=== PATIENT | female | born 1945 | race Caucasian/White ===

== ENCOUNTER 2024-06-14 09:55 | Outpatient (AMB) | payer BC, SELFPAY ==
--- NOTE | 2024-06-14 10:34 | A.SPINEOV_ITS ---
Intake Visit Reasons: LBP Intake Note: Ms. Alfonso is here today c/o low back pain/pressure when standing and walking. Business Planning Director Required: No Assessment & Plan Assessment & Plan (1) Lumbar stenosis with neurogenic claudication: Code(s): M48.062 - Spinal stenosis, lumbar region with neurogenic claudication Category: Medical Plan Dear colleague, On 12/15/2023 the pleasure of seeing your patient Sagrario Alfonso. She self- referred with a chief complaint of low back pain radiating down both legs with w alking and standing. The symptoms are going on for 16 years and have progress. She underwent 2 surgeries the 1st 1 was to implant interspinous spacers which were coronary removed and a 2nd surgery was a decompression. Both surgery have not improved her symptoms. She comes in for another opinion. She has the classic symptoms of neurogenic claudication. On exam, she walks with a flexed position. Otherwise there are no neurological deficits. We reviewed imaging in detail. An MRI of the lumbar spine shows severe lumbar degenerative disc disease L3-4 and L4-5 and L5-S1 with status post laminectomy at L3-4 and L4-5. An L4-5 spondylolisthesis but also a lumbar degenerative scoliosis causing severe foraminal narrowing and central spinal stenosis. Unfortunately, a CT scan shows that the patient is suffering from osteoporosis. I explained to her that the symptoms are explained by the abnormalities on the MRI and CT scan but due to the poor bone quality I will not be able to help her surgically. She needs a correction of the L3-4 and L4-5 disc spaces to indirectly decompress her nerve structures. This fusion type surgery would feel due to the poor bone quality. She understood my explanation. I will refer to pain management to see if she is a candidate for a spinal cord stimulator. I spent 45 minutes in his consult to review imaging, exam and discuss plan of care. Thank you for allowing me take care of your patient. Mukund Buchanan MD, PhD Spine Fellowship Trained Neurosurgeon Director, [facility] Orders: Referrals Pain Management Referral M48.062 - Spinal stenosis, lumbar region with neurogenic claudication Coding Level of Care Code New Pt Level 4 (63675) Diagnoses Lumbar stenosis with neurogenic claudication M48.062
== END 2024-06-14 11:12 | disposition home or self-care (01) ==
PROVIDERS: PCP Nurse Practitioner Primary Care; Visit Provider Neurological Surgery
DX: M48.062 Spinal stenosis, lumbar region with neurogenic claudication (principal)
CPT/HCPCS: 99204

== ENCOUNTER → 2024-06-14 09:55 | Outpatient (BNVA) | payer BC, MEDICARE, SELFPAY | PROVIDERS: Visit Provider Neurological Surgery ==

== ENCOUNTER 2024-06-26 14:40 | Outpatient (REF) | payer MEDICARE, SELFPAY ==
--- NOTE | ~2024-06-26 | XR_ITS ---
EXAMINATION: XR HIP, LEFT CLINICAL INFORMATION: Unilateral primary osteoarthritis left hip. COMPARISON: None available. TECHNIQUE: 2 views of the left hip. FINDINGS: Diffuse demineralization. Degenerative changes in the imaged lower spine and left sacroiliac joint. Moderate degenerative changes in the left hip with joint space and hypertrophic change. Extensive vascular calcifications. Extensive sclerosis and degenerative change on very limited imaging of the pubic symphysis. XR/XR hip LT min 2V IMPRESSION: 1. Moderate degenerative changes in the left hip. 2. Extensive sclerosis and degenerative change on very limited imaging of the pubic symphysis. 3. CT scan or MRI could be considered for further evaluation if there is clinical concern for fracture or other underlying pathology.
== END 2024-06-26 14:41 | disposition home or self-care (01) ==
LOC: HO.XRAY 14:40
PROVIDERS: PCP Nurse Practitioner Primary Care; Visit Provider Anesthesiology
DX: M16.12 Unilateral primary osteoarthritis, left hip (principal)
CPT/HCPCS: 73502

== ENCOUNTER 2024-06-26 14:40 | Outpatient (AMB) | payer BC, SELFPAY ==
--- NOTE | 2024-06-26 14:45 | MHC.OFFVIS ---
Vital Signs 06/26/24 14:48 Height 5 ft 1.5 in Weight 190 lb 4 oz BMI 35.4 BP 149/79 H Blood Pressure Location Lt brachial Position Sitting Pulse 83 Pulse Source Pulse Oximeter Pulse Oximetry (%) 94 Oxygen Delivery Method Room Air Intake Visit Reasons: Spinal stenosis - referral from [facility] Intake Note: Sagrario is a 78 year old female who presents to the office today for spinal stenosis referred by Dr. Buchanan. Allergies No Known Allergies Allergy (Verified 06/26/24 14:51) HPI Comments Details: Vaishali is very pleasant 78 years old female who presents in this office with complains on unstable gait, inability to walk for long period of time, tiredness with walking in the lower extremities need to lean forward and sit down after the short periods of walking as well as pain in the projection of the left groin and pain in anterior thighs. The symptoms of neurogenic claudication related to patient's spinal stenosis and history of spine surgery. She was seen by Dr. Buchanan and in his no Dr. Buchanan stated that her condition in her back otherwise would require additional surgery on additional spinal levels however the patient has advanced severe osteoporosis and therefore he will not be able to offer surgery to this patient. He recommended patient physical therapy, he recommended her to go to pain management. She reports that she can not sleep normally, she can not do activities of daily living, she can take care of herself, but she can not function normally. 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 She needs walker for ambulation. Movements aggravate her pain. Heat and cold applications make her pain slightly better. In terms of tissue damage he reports her pain is pulsing, throbbing, pounding, tugging, pulling, wrenching, tingling, stinging, dull, hurting, heavy, tiring, exhausting, spreading, radiating, piercing. She had multiple sessions of physical therapy, massage therapy, herbal and homeopathic treatment. She had an MRI of the lumbar spine recently which was evaluated by Dr. Buchanan and described in his note. She has advanced spinal canal stenosis in the lumbar spine. She never had any injections. Her past medical history significant for arthritis dizziness and fainting, her past surgical history significant for surgery on the lumbar spine in 2007 twice and 2010 total knee replacement. She used to smoke 1 pack per day of the cigarettes but currently she stopped. She drinks alcohol about 2 drinks a month. She drinks caffeinated beverages and she denies recreational drugs. Review of Systems Const Reports no additional complaints, Reports frequent falls and Reports weakness ENT Reports Normal hearing present Card Reports no additional complaints Resp Reports no additional complaints GI Reports no additional complaints Musc Reports as per HPI Neuro Reports Normal hearing present, Denies Abnormal speech present, Reports frequent falls, Denies Sensory deficit (Neuro) and Reports weakness Physical Exam Vital Signs: Last Vital Signs Pulse 83 06/26/24 14:48 BP 149/79 H 06/26/24 14:48 Pulse Ox 94 06/26/24 14:48 Oxygen Delivery Method Room Air 06/26/24 14:48 BMI result Body Mass Index 35.4 Const General: no acute distress Orientation/consciousness: patient oriented x3 Limitations: physical limitations Eyes General: appearance normal, both eyes and all related structures Pupils: Equal, round and reactive pupils present EOM: EOMs intact bilaterally Neck Neck: Yes full ROM Chest Chest palpation & inspection: normal inspection of the chest Resp Effort & Inspection: normal respiratory effort, able to speak in complete sentences, normal respiratory pattern, no audible wheezes and no cough Cardio Jugular venous distension: no JVD GI Inspection: Yes normal to inspection Back/Spine/Pelvis Other: On physical exam there is very well-healed scar in the projection of the patient's lumbar spine in the most lower portion of the lumbar vertebra. The patient demonstrate wobbly gait, she demonstrates weakness in bilateral lower extremities, she is unable to walk longer than 10-15 yd without resting. She needs to flex forward when resting to alleviate her pain. She denies pelvic organ dysfunction. She admits Valsalva maneuver aggravates her pain. Neuro General: patient oriented x3 and gait normal Cranial nerves: Yes CN's II-XII intact bilaterally, Yes Equal, round and reactive pupils present, Yes Normal hearing present and Yes Ability to bilaterally elevate shoulders present Speech: No Abnormal speech present Gait exam (Neuro): Normal gait present Motor exam (neuro): 5/5 motor strength present throughout Sensory Exam: No Sensory deficit (Neuro) Extrem General: No pedal edema Psych Speech and movement: Normal speech and movement present Affect: normal affect Attitude: cooperative Thought process: Normal thought process present Thought content: Normal thought content present Insight: Good insight present (Psych) Judgement: Good judgement present (Psych) Assessment & Plan Assessment & Plan (1) Osteoarthritis of left hip: Code(s): M16.12 - Unilateral primary osteoarthritis, left hip Category: Medical Plan I will send this patient for x-ray of the left hip to evaluate 1 yet another pain generators which is left hip osteoarthritis. We discussed possibility of treatment of this patient's pain with neuromodulation. I will send this patient for evaluation with [facility] psychology. After that we will schedule her for a trial of [employer] spinal cord stimulator. I am planning to switch her to [employer] SCS if the results of the [employer] stimulation will not be appropriate or not satisfactory for the patient. I would like to try intrathecal drug delivery system pain pump for the patient if SCS results will be less than encouraging. Orders: Orders XR hip LT min 2V Today M16.12 - Unilateral primary osteoarthritis, left hip Patient Instructions: I here by testify that I spent 45 minutes in conversation with this patient as well as planning his care and organizing this note. Coding Level of Care Code New Pt Level 4 (70812) Diagnoses Osteoarthritis of left hip M16.12
[2024-06-26 14:48] VITALS: BP 149/79; PULSE 83; O2SAT 94; BMI 35.4
== END 2024-06-26 15:25 | disposition home or self-care (01) ==
PROVIDERS: PCP Nurse Practitioner Primary Care; Visit Provider Anesthesiology
DX: M16.12 Unilateral primary osteoarthritis, left hip (principal)
CPT/HCPCS: 99204

== ENCOUNTER 2024-07-31 09:39 | Outpatient (AMB) | payer BC, SELFPAY ==
[2024-07-31 09:45] VITALS: BP 141/89; PULSE 81; O2SAT 96
--- NOTE | 2024-07-31 09:45 | MHC.OFFVIS ---
Vital Signs 07/31/24 09:45 Height 5 ft 1 in BMI Reason not done Patient refused/unable BP 141/89 H Blood Pressure Location Lt brachial Position Sitting Pulse 81 Pulse Source Pulse Oximeter Pulse Oximetry (%) 96 Oxygen Delivery Method Room Air Comment Pt refused weight Intake Visit Reasons: X-Ray 1 Month F/U Allergies No Known Allergies Allergy (Verified 06/26/24 14:51) HPI Comments Details: Patient presents back to the office today, accompanied by her daughter, for follow-up lower back pain and review of recent x-ray. X-ray reviewed, results as per below. Pain today rated as a 6/10, constant worse with standing and walking. Finds relief with slight forward flexion At last visit was offered spinal cord stimulator trial, she has been waiting [employer] to contact her to schedule. Reports snoring and daytime fatigue, has been referred for sleep study in the past but never completed it. She had completed multiple sessions of physical therapy, massage therapy, NSAIDS, herbal and homeopathic treatment. Prior visit with Dr. Albrecht: Vaishali is very pleasant 78 years old female who presents in this office with complains on unstable gait, inability to walk for long period of time, tiredness with walking in the lower extremities need to lean forward and sit down after the short periods of walking as well as pain in the projection of the left groin and pain in anterior thighs. The symptoms of neurogenic claudication related to patient's spinal stenosis and history of spine surgery. She was seen by Dr. Buchanan and in his no Dr. Buchanan stated that her condition in her back otherwise would require additional surgery on additional spinal levels however the patient has advanced severe osteoporosis and therefore he will not be able to offer surgery to this patient. He recommended patient physical therapy, he recommended her to go to pain management. She reports that she can not sleep normally, she can not do activities of daily living, she can take care of herself, but she can not function normally. 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 She needs walker for ambulation. Movements aggravate her pain. Heat and cold applications make her pain slightly better. In terms of tissue damage he reports her pain is pulsing, throbbing, pounding, tugging, pulling, wrenching, tingling, stinging, dull, hurting, heavy, tiring, exhausting, spreading, radiating, piercing. She had multiple sessions of physical therapy, massage therapy, herbal and homeopathic treatment. She had an MRI of the lumbar spine recently which was evaluated by Dr. Buchanan and described in his note. She has advanced spinal canal stenosis in the lumbar spine. She never had any injections. Her past medical history significant for arthritis dizziness and fainting, her past surgical history significant for surgery on the lumbar spine in 2008 twice and 2011 total knee replacement. She used to smoke 1 pack per day of the cigarettes but currently she stopped. She drinks alcohol about 2 drinks a month. She drinks caffeinated beverages and she denies recreational drugs. Review of Systems Const All systems reviewed & are unremarkable except as noted in HPI and below Physical Exam Vital Signs: Last Vital Signs Pulse 81 07/31/24 09:45 BP 141/89 H 07/31/24 09:45 Pulse Ox 96 07/31/24 09:45 Oxygen Delivery Method Room Air 07/31/24 09:45 General: awake, alert, oriented. Answers questions appropriately. Fully engaged in examination. Skin: warm, dry, intact HEENT: Normocephalic. Hearing intact. Cardiac: External chest normal in appearance. Respiratory: No cough, audible wheezing or stridor. Abdomen: without gross distension. MS: No obvious swelling or deformities. Able to stand on bilateral tiptoes and bilateral heels.? Able to transition from sit to stand unassisted. Ambulates with bilaterally normal heel strike and toe off SLR negative bilaterally Tender to palpation midline lumbar vertebrae and lumbar paraspinal muscles Bilateral lower extremity strength 4/5 Nontender over bilateral PSIS Neurological: Oriented to person, place, time and situation. Thought process intact. Ambulates with the use of walking stick, bent at the waist in a slight forward flexion Psychiatric: Appropriate mood and affect. Good judgment and insight. Results Reviewed Results Reviewed: 06/26/24: left hip xray IMPRESSION: 1. Moderate degenerative changes in the left hip. 2. Extensive sclerosis and degenerative change on very limited imaging of the pubic symphysis. 3. CT scan or MRI could be considered for further evaluation if there is clinical concern for fracture or other underlying pathology. Assessment & Plan Assessment & Plan (1) Osteoarthritis of left hip: Code(s): M16.12 - Unilateral primary osteoarthritis, left hip Category: Medical (2) Lumbar stenosis with neurogenic claudication: Code(s): M48.062 - Spinal stenosis, lumbar region with neurogenic claudication Category: Medical (3) Post laminectomy syndrome: Code(s): M96.1 - Postlaminectomy syndrome, not elsewhere classified Category: Medical (4) CATHLEEN (obstructive sleep apnea): Code(s): G47.33 - Obstructive sleep apnea (adult) (pediatric) Category: Medical Plan Patient presented to the office today for follow-up low back pain Previous visit discussion for spinal cord stimulator was had, patient would like to proceed with this. She has exhausted conservative therapy including multiple sessions of physical therapy, massage therapy, NSAIDS, herbal and homeopathic treatment. Previously she was referred to [facility] for mental health evaluation which has requirement by insurance for implantable devices. She is to be call to schedule an appointment. [facility] pamphlet was provided and patient will reach out directly to them. Pamphlet for [employer] spinal cord stimulator was given to patient today. Discussed in length SCS trial and implant. Risks and benefits were reviewed, patient would like to proceed with SCS trial with [employer]. Referral has been placed to pulmonary for sleep study/CATHLEEN. All questions and concerns answered, patient agrees with the plan. Follow up after SCS trial, sooner if needed. Orders: Referrals Pulmonology Referral G47.33 - Obstructive sleep apnea (adult) (pediatric) Coding Level of Care Code Est Pt Level 3 (91877) Complex EM visit Add On G2211 Diagnoses Osteoarthritis of left hip M16.12 Lumbar stenosis with neurogenic claudication M48.062 Post laminectomy syndrome M96.1 CATHLEEN (obstructive sleep apnea) G47.33
== END 2024-07-31 10:20 | disposition home or self-care (01) ==
PROVIDERS: PCP Nurse Practitioner Primary Care; Visit Provider Registered Nurse Emergency
DX: M16.12 Unilateral primary osteoarthritis, left hip (principal); M48.062 Spinal stenosis, lumbar region with neurogenic claudication; M96.1 Postlaminectomy syndrome, not elsewhere classified; G47.33 Obstructive sleep apnea (adult) (pediatric)
CPT/HCPCS: 99213

== ENCOUNTER → 2024-07-31 09:39 | Outpatient (BNVA) | payer BC, SELFPAY | PROVIDERS: PCP Nurse Practitioner Primary Care; Visit Provider Registered Nurse Emergency ==

== ENCOUNTER 2024-09-17 10:35 | Outpatient (AMB) | payer BC, SELFPAY ==
[2024-09-17 10:39] VITALS: BP 128/77; PULSE 77; O2SAT 97
--- NOTE | 2024-09-17 10:39 | MHC.OFFVIS ---
Vital Signs 09/17/24 10:39 Height 5 ft 1 in BP 128/77 Blood Pressure Location Rt brachial Position Sitting Pulse 77 Pulse Source Doppler Pulse Oximetry (%) 97 Oxygen Delivery Method Room Air Intake Visit Reasons: sleep apnea Intake Note: *Patient refused weight Allergies No Known Allergies Allergy (Verified 09/17/24 10:43) HPI HPI sleep apnea: Details: 79-year-old lady, former approximately 30 pack-year smoker, quit at 46 years of age, now referred for evaluation of likely underlying obstructive sleep apnea. Per patient she sleeps approximately 7 hours and wakes up feeling not well rested. She does complain of daytime sleepiness and hypersomnolence. She is interested in further evaluation. Patient also complains of intermittent environmental allergies for which she occasionally uses Zyrtec. She does say that she intermittently gets sensation of chest less throat tightness with intermittent wheezing. She denies family history of lung disease, except COPD in her sister who was a smoker. [facility] Social History (Updated 09/17/24 @ 10:44 by Tanya Katz [facility]) Patient Tobacco Use Status: Former Tobacco user Years Smoked: quit 6 years ago. started at age 18, 1PPD Review of Systems Const Reports daytime sleepiness, Denies excessive sweating, Reports fatigue, Denies fever(s), Denies lethargy, Denies malaise, Denies night sweats, Reports snoring and Denies weight loss Eyes Denies blurry vision and Denies itchy eyes ENT Denies nasal congestion, Denies post nasal drip, Denies sinus pain, Denies sinus pressure and Denies other ( Thrush) Card Denies chest pain, Denies pedal edema, Denies dyspnea, Denies orthopnea and Denies paroxysmal nocturnal dyspnea Resp Denies cough, Denies hemoptysis, Denies excessive phlegm production, Denies dyspnea, Reports snoring and Denies wheezing GI Denies abdominal pain and Denies heartburn Musc Denies myalgias, Denies arthralgias and Denies joint swelling Skin/Breast Denies rash Neuro Denies memory loss and Denies seizure-like activity Psych Denies abnormal sleep pattern, Denies anxiety and Denies memory loss Endo Denies excessive sweating, Reports fatigue and Denies heat intolerance Virgil/Lymph Denies easy bruising Aller/Immun Denies itchy eyes, Denies seasonal rhinorrhea and Denies wheezing Physical Exam Vital Signs: Last Vital Signs Pulse 77 09/17/24 10:39 BP 128/77 09/17/24 10:39 Pulse Ox 97 09/17/24 10:39 Oxygen Delivery Method Room Air 09/17/24 10:39 Const General: no acute distress and alert Nutritional Appearance: obese Orientation/consciousness: Other orientation findings ( oriented) HEENT Head: Yes atraumatic Eyes General: appearance normal, both eyes and all related structures Sclerae: sclerae normal EOM: EOMs intact bilaterally Neck Neck: Yes supple Lymphatic: no lymphadenopathy noted Resp Effort & Inspection: normal respiratory effort and no use of accessory muscles Auscultation: clear to auscultation bilaterally Cardio Rate: regular rate Rhythm: regular rhythm Heart sounds: no gallops, no murmurs and no rubs Skin General skin exam: other ( warm) Extrem General: No clubbing, No cyanosis and No edema Assessment & Plan Assessment & Plan (1) CATHLEEN (obstructive sleep apnea): Code(s): G47.33 - Obstructive sleep apnea (adult) (pediatric) Category: Medical Plan: Unrestful sleep, daytime somnolence, snoring. [place] Sleepiness Scale score of 15. Will obtain home sleep study. (2) Wheezing: Code(s): R06.2 - Wheezing Category: Medical Plan: May have underlying allergic asthma and pulmonary emphysema. Patient wants to postpone pulmonary function tests until working up her sleep apnea. Orders: Orders RT home sleep study Today G47.33 - Obstructive sleep apnea (adult) (pediatric) Coding Level of Care Code New Pt Level 4 (40671) Diagnoses CATHLEEN (obstructive sleep apnea) G47.33 Wheezing R06.2
== END 2024-09-17 11:00 | disposition home or self-care (01) ==
PROVIDERS: PCP Nurse Practitioner Primary Care; Visit Provider Internal Medicine Pulmonary Disease
DX: G47.33 Obstructive sleep apnea (adult) (pediatric) (principal); R06.2 Wheezing
CPT/HCPCS: 99204

== ENCOUNTER → 2024-09-17 10:35 | Outpatient (BNVA) | payer BC, SELFPAY | PROVIDERS: PCP Nurse Practitioner Primary Care; Visit Provider Internal Medicine Pulmonary Disease ==

== ENCOUNTER 2024-09-26 11:53 | Outpatient (AMB) | payer BC, SELFPAY ==
--- NOTE | 2024-09-26 11:56 | A.OFFVIS_ITS ---
Vital Signs 09/26/24 12:06 Height 5 ft 1 in Weight 188 lb BMI 35.5 BP 150/90 H Blood Pressure Location Lt brachial Position Sitting Respiration 16 Pulse 83 Pulse Source Pulse Oximeter Pulse Oximetry (%) 97 Oxygen Delivery Method Room Air Intake Visit Reasons: discuss [place] Sci trial Intake Note: Patient comes in for discussion. Reports pain 05/06. Allergies No Known Allergies Allergy (Verified 09/26/24 12:00) HPI Comments Details: Sagrario is in my office today to discuss spinal cord stimulator [place] scientific trial. Risks and benefits explained to the patient. The complications of her particular case were carefully explained to the patient. She has significant scoliosis and she has history of postlaminectomy syndrome. All of this can create significant adhesions in her lumbar spine which would prevent me from placing spinal cord stimulator testing wires in proper position. However if the patient will receive good pain relief from [place] scientific testing device will be happy to implant permanent [place] scientific device for her. On the CT scan of her lumbar spine there is L4-5 and S1 endplate Modic type changes which however not very prominent on the MRI. I contemplated for awhile the intercept procedure for the patient however she denies pain increase with prolonged sitting. Reports pain with standing and walking getting more active is more prominent. She actually finds relief of the pain with forward flexion and this is another point against vertebra genic pain syndrome. She passed [employer] point psychological evaluation. I also explained to the patient today that trial of spinal cord stimulator home uld be considered not as the ultimate procedure but rather as a 1st step in her pain relief therapy. Possibility of treating her pain with chronic opioid therapy was carefully explained to the patient. Prior: Complains on unstable gait, inability to walk for long period of time, tiredness with walking in the lower extremities need to lean forward and sit down after the short periods of walking as well as pain in the projection of the left groin and pain in anterior thighs. The symptoms of neurogenic claudication related to patient's spinal stenosis and history of spine surgery. She was seen by Dr. Buchanan and in his no Dr. Buchanan stated that her condition in her back otherwise would require additional surgery on additional spinal levels however the patient has advanced severe osteoporosis and therefore he will not be able to offer surgery to this patient. He recommended patient physical therapy, he recommended her to go to pain management. She had multiple sessions of physical therapy, massage therapy, herbal and homeopathic treatment. She had an MRI of the lumbar spine recently which was evaluated by Dr. Buchanan and described in his note. She has advanced spinal canal stenosis in the lumbar spine. [facility] Social History (Updated 09/17/24 @ 10:44 by BENNY Mcarthur) Patient Tobacco Use Status: Former Tobacco user Years Smoked: quit 6 years ago. started at age 18, 1PPD Review of Systems Const All systems reviewed & are unremarkable except as noted in HPI and below Physical Exam Vital Signs: Last Vital Signs Pulse 83 09/26/24 12:06 Resp 16 09/26/24 12:06 BP 150/90 H 09/26/24 12:06 Pulse Ox 97 09/26/24 12:06 Oxygen Delivery Method Room Air 09/26/24 12:06 BMI result Body Mass Index 35.5 Const General: no acute distress Orientation/consciousness: patient oriented x3 Limitations: physical limitations Eyes General: appearance normal, both eyes and all related structures EOM: EOMs intact bilaterally Neck Neck: Yes full ROM Chest Chest palpation & inspection: normal inspection of the chest Resp Effort & Inspection: normal respiratory effort, able to speak in complete sentences, normal respiratory pattern, no audible wheezes and no cough Cardio Jugular venous distension: no JVD GI Inspection: Yes normal to inspection Back/Spine/Pelvis Other: On physical exam there is very well-healed scar in the projection of the patient's lumbar spine in the most lower portion of the lumbar vertebra. The patient demonstrate wobbly gait, she demonstrates weakness in bilateral lower extremities, she is unable to walk longer than 10-15 yd without resting. She needs to flex forward when resting to alleviate her pain. She denies pelvic organ dysfunction. She admits Valsalva maneuver aggravates her pain. Neuro General: patient oriented x3 and gait normal Extrem General: No pedal edema Psych Speech and movement: Normal speech and movement present Affect: normal affect Attitude: cooperative Thought process: Normal thought process present Thought content: Normal thought content present Insight: Good insight present (Psych) Judgement: Good judgement present (Psych) Assessment & Plan Assessment & Plan (1) Lumbar stenosis with neurogenic claudication: Code(s): M48.062 - Spinal stenosis, lumbar region with neurogenic claudication Category: Medical (2) Post laminectomy syndrome: Code(s): M96.1 - Postlaminectomy syndrome, not elsewhere classified Category: Medical (3) Chronic pain syndrome: Code(s): G89.4 - Chronic pain syndrome Category: Medical Plan We are waiting for pre authorization for a trial of [place] scientific spinal cord stimulator.. After that we will schedule her for a trial of [place] scientific spinal cord stimulator. I am planning to switch her to [facility] SCS if the results of the [place] scientific stimulation will not be appropriate or not satisfactory for the pat ient. I would like to try intrathecal drug delivery system pain pump for the patient if SCS results will be less than encouraging. She seemed to be very well adjusted and very well composed person and therefore in my opinion she could be a candidate for chronic opioid program as well. Patient Instructions: I here by testify that I spent 35 minutes in conversation with this patient as well as evaluating her prior records and diagnostic studies as well as planning her care and organizing this note. Coding Level of Care Code Est Pt Level 4 (70398) Diagnoses Lumbar stenosis with neurogenic claudication M48.062 Post laminectomy syndrome M96.1 Chronic pain syndrome G89.4
[2024-09-26 12:06] VITALS: BP 150/90; PULSE 83; RESP 16; O2SAT 97; BMI 35.5
== END 2024-09-26 12:19 | disposition home or self-care (01) ==
LOC: HO.PMC 11:54
PROVIDERS: PCP Nurse Practitioner Primary Care; Visit Provider Anesthesiology
DX: M48.062 Spinal stenosis, lumbar region with neurogenic claudication (principal); M96.1 Postlaminectomy syndrome, not elsewhere classified; G89.4 Chronic pain syndrome
CPT/HCPCS: 99214

== ENCOUNTER → 2024-09-26 11:53 | Outpatient (BNVA) | payer BC, SELFPAY | PROVIDERS: PCP Nurse Practitioner Primary Care; Visit Provider Anesthesiology ==

== ENCOUNTER → 2024-10-29 10:51 | Outpatient (REF) | payer MEDICARE, SELFPAY ==
--- OUTSIDE RECORDS SUMMARY | 2024-11-05 12:55 | XMS_ITS | Continuity of Care Document ---
Author Organization [facility] Address [address] [place], [place] Phone [phone] Social History Type Date Description Comments Sex Unknown Allergies and adverse reactions Active Allergies Criticality Reaction Severity Comments Date Shellfish-Derived Products Unable to assess criticality 03/08/2024 Dairy Unable to assess criticality 03/08/2024
== END ==
LOC: HO.SL 10:51
PROVIDERS: PCP Nurse Practitioner Primary Care; Visit Provider Internal Medicine Pulmonary Disease
DX: G47.33 Obstructive sleep apnea (adult) (pediatric) (principal)
CPT/HCPCS: 95806

== ENCOUNTER → 2024-10-29 11:08 | Outpatient (BNV) | payer MEDICARE, SELFPAY | PROVIDERS: PCP Nurse Practitioner Primary Care; Visit Provider Internal Medicine | DX: G47.33 Obstructive sleep apnea (adult) (pediatric) (principal) | CPT/HCPCS: 95806 ==

== ENCOUNTER 2024-11-01 09:57 | Day surgery (SDC) | payer MEDICARE, SELFPAY ==
[2024-10-30 14:11] VITALS: BMI 35.5
--- NOTE | 2024-10-31 10:52 | HO.ANESPROP2 ---
Documented by User: Pmea Liu NP 10/31/24 10:52 HPI - Anesthesia Eval Consult details Narrative: 79yo F for Spinal Cord Stimulation Trial [facility] Active Problems Active Problems: All Active Problems Chronic pain syndrome (Acute) Wheezing (Acute) CATHLEEN (obstructive sleep apnea) (Acute) Post laminectomy syndrome (Acute) Osteoarthritis of left hip (Acute) Lumbar stenosis with neurogenic claudication (Acute) Past Medical History Medical History Scoliosis Lumbar stenosis Osteoarthritis Post laminectomy syndrome Chronic pain syndrome Sleep apnea Surgical History Surgical History History of back surgery Social History Social History Patient Tobacco Use Status: Former Tobacco user Years Smoked: quit 6 years ago. started at age 18, 1PPD Second Hand Smoke Exposure: No Use of substances other than those prescribed or required for medical reasons: No Have you been hit, kicked, punched, or otherwise hurt by someone within the past year? If so, by whom?: No Are you DNR?: No Advance Directives: No Advance Directives Information Provided: Yes Advance Directives on File: No Recently lost weight without trying: No Eating poorly because of decreased appetite: No Nutrition Risks: No Nutritional Risk Patient : No : No Poor oral hygiene: No Meds Allergies Allergy/AdvReac Type Severity Reaction Status Date / Time No Known Allergies Allergy Verified 09/26/24 12:00 Home Medications ?Medication ?Instructions ?Recorded ?Confirmed ?Last Taken ?Type duloxetine 30 mg capsule,delayed 30 mg PO BID 06/26/24 Unknown History release mirabegron 25 mg tablet,extended 25 mg PO DAILY 06/26/24 Unknown History release 24 hr (Myrbetriq) Exam Height,Weight and Vital Signs: Height 5 ft 1 in Weight 85.275 kg Assessment and Plan Assessment Anesthesia Assessment: Chart Reviewed Documented by User: Mickie Thomas MD 11/01/24 10:55 PMFSH Past Medical History Medical History Scoliosis Lumbar stenosis Osteoarthritis Post laminectomy syndrome Chronic pain syndrome Sleep apnea Surgical History Surgical History History of back surgery History of Problems with Anesthesia: No Social History Social History Patient Tobacco Use Status: Former Tobacco user Years Smoked: quit 6 years ago. started at age 18, 1PPD Second Hand Smoke Exposure: No Use of substances other than those prescribed or required for medical reasons: No Have you been hit, kicked, punched, or otherwise hurt by someone within the past year? If so, by whom?: No Are you DNR?: No Advance Directives: No Advance Directives Information Provided: Yes Advance Directives on File: No Recently lost weight without trying: No Eating poorly because of decreased appetite: No Nutrition Risks: No Nutritional Risk Patient : No : No Poor oral hygiene: No Meds Allergies Allergy/AdvReac Type Severity Reaction Status Date / Time No Known Allergies Allergy Verified 09/26/24 12:00 Home Medications ?Medication ?Instructions ?Recorded ?Confirmed ?Last Taken ?Type duloxetine 30 mg capsule,delayed 30 mg PO BID 06/26/24 Unknown History release mirabegron 25 mg tablet,extended 25 mg PO DAILY 06/26/24 Unknown History release 24 hr (Myrbetriq) Exam Airway Mallampati Class: II TM Dist: >3cm Neck ROM: Full Loose/Missing/Broken Teeth: No Heart: RRR Lungs: CTA Assessment and Plan Assessment Anesthesia Assessment: Anesthesia Plan Discussed Final Anesthetic Review History of Problems with Anesthesia: No NPO: Yes ASA Class: III Final Preanesthetic Review: Meds/Allgs Chart Reviewed, Consent Obtained/Reviewed and Anes Risks/Benef Reviewed Patient Risk: Intermediate Procedure Risk: Intermediate Anesthetic Plan Anesthetic Plan: MAC: Disposition: Standard PACU
[2024-11-01 10:09] VITALS: BP 150/87; PULSE 76; RESP 16; TEMP 36.8; O2SAT 96
[2024-11-01] MEDS: Lactated Ringers 1,000 ML 100 ML IVCONT (10:33)
--- NOTE | 2024-11-01 11:09 | MHC.SHP ---
Pre-Procedural Eval Section A - 24 Hr Update-Section A only Date of Service: 11/01/24 The patient is an INPATIENT: No Changes since office visit: Yes Patient answered all questions The patient has been examined within 24 hours of the surgical procedure. The History & Physical has been completed within 30 days and I have reviewed it.: No Section B - Complete if H&P > 30 days Chief Complaint: Postlaminectomy syndrome,chronic pain Details of Present Illness: as above Relevant Family History (Specify if Yes): No Relevant Social History: None Present Medications: None Medical History: No relevant PMH History of Previous Operations: Relevant previous surgery/procedure and date(s) Allergies: Allergies Allergy/AdvReac Type Severity Reaction Status Date / Time No Known Allergies Allergy Verified 09/26/24 12:00 Review of Systems Sugical H&P ROS: Negative: Cardiovascular, Neurological, Psychiatric, Hem-Onc, Allergic/Immunologic, Gastrointestinal, Genitourinary, Integumentary, Endocrine and Eyes/Ears/Nose/Throat and Yes, Specify: Constitution (obesity), Respiratory (CATHLEEN) and Musculoskeletal (spinal stenosis, scoliosis) Exam Surgical H&P Exam: Normal: HEENT, Normal: Heart, Normal: Lungs, Normal: Extremities, Normal: Abdomen, Normal: Skin and Normal: Neurological Plan Diagnosis/Plan: Unchanged I have reviewed the history and physical and performed a pertinent physical examination on my patient. No changes have occurred unless specified. Time Spent With Patient Time: Total time managing care of this patient today ____ minutes.
[2024-11-01 12:13] LABS: MRSA Nasal PCR NEGATIVE (Negative); SA Nasal PCR NEGATIVE (Negative)
[2024-11-01 13:35] VITALS: BP 101/80; PULSE 64; RESP 16; TEMP 36.1; O2SAT 99
[2024-11-01 13:50] VITALS: BP 118/76; PULSE 58; RESP 16; O2SAT 99
--- NOTE | 2024-11-01 13:50 | P.BOP_ITS ---
Brief Operative Note Date of Service: 11/01/24 Pre-op diagnosis: Postlaminectomy syndrome chronic pain syndrome Post-op diagnosis: same Procedure: Trial of [place] scientific spinal cord stimulator Implants: None permanent Surgeon: Wilmer Albrecht MD Anesthesia: MAC Was an Software Developer Mid Level used for this Procedure?: No Estimated blood loss (mL): 2 Condition: stable Disposition: PACU
--- NOTE | 2024-11-01 13:55 | W.PM.OPN ---
Operative Note Operative Note Date of Service: 11/01/24 Narrative: Trial of [place] scientific spinal cord stimulator thoracic position. Vaishali is very pleasant 79 years old lady who came today- to the operating room for trial of spinal cord stimulator [employer] [employer] for the treatment of postlaminectomy syndrome and chronic pain syndrome. ?Preoperatively patient received ? cefazolin 2 g approximately 20 minutes before the incision. After obtaining informed consent were risks and benefits as well as alternatives were explained to the patient, the patient was brought to the operating room, she was positioned prone on operating table, ASA monitor were applied and the patient was minimally sedated. ?Time-out was performed delineating correct site, side, the nature of the procedure, patient's allergy, preoperative antibiotic if needed.? All operating room staff was participating in OR time-out procedure. Patient's entire back was prepped with Chloraprep twice and draped with full body fenestrated laparoscopy drape.? Sterilely draped C-arm was brought over operating field and square picture of the T11, T12, L1, L2 vertebrae? were demonstrated on the screen.? ?Attention FIRST? was concentrated on the T12-L1 epidural interspace. The location of the projection of L2 vertebra right pedicle was found on the skin using C-arm.? This location was injected with mixture of lidocaine 2% and ropivacaine 0.5% - 5 cc.? After that 11 blade was used to make a thea on the skin.? 10 cm 14 gauge? introducer epidural needle was inserted through the thea and advanced to right T12-L1 epidural interspace.? The advancement of the needle was performed on anterior posterior and lateral views.?Loss of resistance to air? technique were used to locate epidural space., guitar wire was used to confirm position of the needle in the epidural space, epidural lead was inserted through the needle and any attempt of advancement of the epidural lead met resistance and the epidural lead was deviating either to left or right lateral gutter of the spinal canal. The decision was made to change the approach and advance the epidural needle to T11-T12 epidural interspace. 10 cm 14 gauge needle was removed and 5 in long 14 gauge needle was reinserted into the previous insertion site and it was advanced to were T11-T12 epidural interspace. The advancement of the needle was performed on anterior posterior and lateral views. Loss of resistance to air technique were used to locate epidural space. Guitar wire was used to confirm position of the needle in the epidural space, and after that epidural stimulate lead was inserted and? advanced in the posterior epidural space to the top of T7 vertebral body projection. The position of the electrode was verified by anterior posterior and lateral views. The right side inserted electrode was positioned strictly in the midline. ? .? After that? the location of the projection of the LEFT pedicle center of the? L1 vertebra was found on the skin using C-arm.? This location was injected with mixture of lidocaine 2% and Marcaine 0.5% 5 cc.? After that 11 blade was used to make a thea on the skin.? 10 cm 14 gauge introducer epidural needle was inserted through the thea and advanced to T11-T12 epidural interspace.? The advancement of the needle was performed on anterior posterior and lateral views.? Guitar wire and loss of resistance to air technique were used to locate epidural space.? When guitar wire was spread in the epidural fashion, epidural lead was inserted through the needle. After the the epidural lead advanced into the posterior epidural space and advanced to the T7 projection epidural space also very close to midline slightly left to the existing electrode. See the fluoroscopy images. the position of electrodes in the posterior epidural space was verified by Fluoroscopy image. At this moment patient was awakened and stimulation was applied. The patient reported stimulation corresponding to area of her pain. After that the skin at the site of the mixture of lidocaine 2% and ropivacaine 0.5% one-to-one was injected the needles were withdrawn, the stylette wires were removed from the epidural leads.? The anchoring devices were dislodged on the leads and advanced to the level of the skin.? The anchoring devices were sutured with two 0-0 ?Silk sutures per each anchor to the skin of the patient. The central fixation screw of each anchor was rotated until three clicks were heard. The leads were connected to testing device.? Bacitracin ointment was applied to the entrance point of bilateral wires.? Sterile dressing was applied to the patient's back.? The testing device was also taped to the patient's back.? the patient tolerated procedure well she was taken outside of the operating room to recovery room. She recovered uneventfully.
[2024-11-01 14:05] VITALS: BP 130/88; PULSE 61; RESP 16; O2SAT 99
[2024-11-01 14:20] VITALS: BP 124/76; PULSE 64; RESP 16; TEMP 36.7; O2SAT 99
--- OUTSIDE RECORDS SUMMARY | 2024-11-06 07:15 | XMS_ITS | Continuity of Care Document ---
Author Organization [facility] Address [address] [place], [place] Phone [phone] Social History Type Date Description Comments Sex Unknown Allergies and adverse reactions Active Allergies Criticality Reaction Severity Comments Date Shellfish-Derived Products Unable to assess criticality 03/08/2024 Dairy Unable to assess criticality 03/08/2024
== END 2024-11-01 15:04 | disposition home or self-care (01) ==
PROVIDERS: Registered Nurse Emergency; Visit Provider Anesthesiology
PROC: (CPT 63650; principal; 2024-11-01 11:30)
DX: M96.1 Postlaminectomy syndrome, not elsewhere classified (principal); G89.4 Chronic pain syndrome; M48.061 Spinal stenosis, lumbar region without neurogenic claudication; M41.9 Scoliosis, unspecified; M16.12 Unilateral primary osteoarthritis, left hip; R26.89 Other abnormalities of gait and mobility; R26.2 Difficulty in walking, not elsewhere classified; Z79.899 Other long term (current) drug therapy; Z99.89 Dependence on other enabling machines and devices; Z87.891 Personal history of nicotine dependence
CPT/HCPCS: 63650 ×2; 87640; 87641; C1889; C1897; J0665; J0690; J2003; J2371; J2405; J2704; J3010

== ENCOUNTER → 2024-11-01 09:57 | Outpatient (BNV) | payer MEDICARE, SELFPAY | PROVIDERS: Visit Provider Anesthesiology | DX: M96.1 Postlaminectomy syndrome, not elsewhere classified (principal) | CPT/HCPCS: 63650 ==

== ENCOUNTER 2024-11-05 11:38 | Outpatient (AMB) | payer MEDICARE, SELFPAY ==
[2024-11-05 11:39] VITALS: BP 122/64; PULSE 87; O2SAT 95; BMI 35.5
--- NOTE | 2024-11-05 11:39 | MHC.OFFVIS ---
Vital Signs 11/05/24 11:39 Height 5 ft 1 in Weight 188 lb BMI 35.5 BP 122/64 Blood Pressure Location Rt brachial Position Sitting Pulse 87 Pulse Source Doppler Pulse Oximetry (%) 95 Oxygen Delivery Method Room Air Intake Visit Reasons: cathleen Allergies No Known Allergies Allergy (Verified 09/26/24 12:00) HPI HPI cathleen: Details: 79-year-old lady, former approximately 30 pack-year smoker, quit at 46 years of age, now referred for evaluation of likely underlying obstructive sleep apnea. Per patient she sleeps approximately 7 hours and wakes up feeling not well rested. She does complain of daytime sleepiness and hypersomnolence. She is interested in further evaluation. Patient also complains of intermittent environmental allergies for which she occasionally uses Zyrtec. She does say that she intermittently gets sensation of chest less throat tightness with intermittent wheezing. She denies family history of lung disease, except COPD in her sister who was a smoker. After the last office visit patient has completed her home sleep study that shows underlying mild obstructive sleep apnea with AHI of 10. She is interested in CPAP therapy. [facility] Medical History Scoliosis Lumbar stenosis Osteoarthritis Post laminectomy syndrome Chronic pain syndrome Sleep apnea Surgical History History of back surgery Social History Patient Tobacco Use Status: Former Tobacco user Years Smoked: quit 6 years ago. started at age 18, 1PPD Second Hand Smoke Exposure: No Review of Systems Const Reports daytime sleepiness, Reports lethargy and Reports snoring Resp Denies cough, Denies excessive phlegm production, Reports snoring and Reports wheezing Aller/Immun Reports wheezing Physical Exam Vital Signs: Last Vital Signs Pulse 87 11/05/24 11:39 BP 122/64 11/05/24 11:39 Pulse Ox 95 11/05/24 11:39 Oxygen Delivery Method Room Air 11/05/24 11:39 BMI result Body Mass Index 35.5 Const General: no acute distress and alert Nutritional Appearance: obese Orientation/consciousness: Other orientation findings ( oriented) HEENT Head: Yes atraumatic Eyes General: appearance normal, both eyes and all related structures Sclerae: sclerae normal EOM: EOMs intact bilaterally Neck Neck: Yes supple Lymphatic: no lymphadenopathy noted Resp Effort & Inspection: normal respiratory effort and no use of accessory muscles Auscultation: clear to auscultation bilaterally Cardio Rate: regular rate Rhythm: regular rhythm Heart sounds: no gallops, no murmurs and no rubs Skin General skin exam: other ( warm) Extrem General: No clubbing, No cyanosis and No edema Assessment & Plan Assessment & Plan (1) CATHLEEN (obstructive sleep apnea): Code(s): G47.33 - Obstructive sleep apnea (adult) (pediatric) Category: Medical Plan: Results of sleep study reviewed, underlying mild obstructive sleep apnea with AHI of 10 and obesity with BMI of 35 with comorbidity. Will start on APAP of 6-16 cm water. (2) Wheezing: Code(s): R06.2 - Wheezing Category: Medical Plan: Underlying intermittent wheezing. Will continue with workup after establishing on CPAP therapy per patient's prior request. (3) Obesity (BMI 30-39.9): Code(s): E66.9 - Obesity, unspecified Category: Medical Plan: As a comorbidity of underlying obstructive sleep apnea Coding Level of Care Code Est Pt Level 4 (96608) Diagnoses CATHLEEN (obstructive sleep apnea) G47.33 Wheezing R06.2 Obesity (BMI 30-39.9) E66.9
--- OUTSIDE RECORDS SUMMARY | 2024-11-06 20:46 | XMS_ITS | Continuity of Care Document ---
Author Organization [facility] Address [address] [place], [place] Phone [phone] Social History Type Date Description Comments Sex Unknown Allergies and adverse reactions Active Allergies Criticality Reaction Severity Comments Date Shellfish-Derived Products Unable to assess criticality 03/08/2024 Dairy Unable to assess criticality 03/08/2024
== END 2024-11-05 12:03 | disposition home or self-care (01) ==
PROVIDERS: Visit Provider Internal Medicine Pulmonary Disease
DX: G47.33 Obstructive sleep apnea (adult) (pediatric) (principal); R06.2 Wheezing; E66.9 Obesity, unspecified
CPT/HCPCS: 99214

== ENCOUNTER → 2024-11-05 11:38 | Outpatient (BNVA) | payer MEDICARE, SELFPAY | PROVIDERS: Visit Provider Internal Medicine Pulmonary Disease | DX: G47.33 Obstructive sleep apnea (adult) (pediatric) (principal); R06.2 Wheezing; E66.9 Obesity, unspecified; Z68.35 Body mass index [BMI] 35.0-35.9, adult | CPT/HCPCS: 99212 ==

== ENCOUNTER 2024-11-06 11:36 | Outpatient (AMB) | payer BC, SELFPAY ==
[2024-11-06 11:50] VITALS: BP 161/97; PULSE 92; BMI 36.3
--- NOTE | 2024-11-06 11:50 | MHC.OFFVIS ---
Vital Signs 11/06/24 11:50 Height 5 ft 1 in Weight 192 lb BMI 36.3 BP 161/97 H Blood Pressure Location Lt brachial Position Sitting Pulse 92 Pulse Source Pulse Oximeter Intake Visit Reasons: S/p [place] [employer] SC Trial 11/01/24 Allergies No Known Allergies Allergy (Verified 11/06/24 11:51) Medication List - Last Reconciled 11/06/24 by Sandra Boyer, [employer] cephalexin 1,000 mg (2 x 500 mg) PO Q8H 7 days duloxetine 30 mg PO BID mirabegron ER (Myrbetriq) 25 mg PO DAILY HPI Comments Details: Sagrario is in my office today after completing a trial of [place] [employer] spinal cord stimulator. Because of her mostly axial back pain I decided to switch the trial for Nevro SCS. She reported to me that she had only 50% pain improvement and some improvement of activities of daily living. She did not express much of the enthusiasm about implantation of the permanent device today. That is why I had to explained to her possibility of changing her device to Nevro SCS. Antibiotics will be prescribed, decided that she will give us a call tomorrow and report whether or not she wants to continue this trial through the weekend and remove the leads on Monday or she wants to on Monday to remove the leads. She has significant scoliosis and she has history of postlaminectomy syndrome. On the CT scan of her lumbar spine there is L4-5 and S1 endplate Modic type changes which however not very prominent on the MRI. I contemplated for awhile the intercept procedure for the patient however she denies pain increase with prolonged sitting. Reports pain with standing and walking getting more active is more prominent. She actually finds relief of the pain with forward flexion and this is another point against vertebra genic pain syndrome. Chronic opioid therapy was discussed with the patient in the past. Prior: Complains on unstable gait, inability to walk for long period of time, tiredness with walking in the lower extremities need to lean forward and sit down after the short periods of walking as well as pain in the projection of the left groin and pain in anterior thighs. The symptoms of neurogenic claudication related to patient's spinal stenosis and history of spine surgery. She was seen by Dr. Buchanan and in his no Dr. Buchanan stated that her condition in her back otherwise would require additional surgery on additional spinal levels however the patient has advanced severe osteoporosis and therefore he will not be able to offer surgery to this patient. He recommended patient physical therapy, he recommended her to go to pain management. She had multiple sessions of physical therapy, massage therapy, herbal and homeopathic treatment. She had an MRI of the lumbar spine recently which was evaluated by Dr. Buchanan and described in his note. She has advanced spinal canal stenosis in the lumbar spine. [facility] Medical History Scoliosis Lumbar stenosis Osteoarthritis Post laminectomy syndrome Chronic pain syndrome Sleep apnea Surgical History History of back surgery Social History Patient Tobacco Use Status: Former Tobacco user Years Smoked: quit 6 years ago. started at age 18, 1PPD Second Hand Smoke Exposure: No Review of Systems Const All systems reviewed & are unremarkable except as noted in HPI and below Physical Exam Vital Signs: Last Vital Signs Pulse 92 11/06/24 11:50 BP 161/97 H 11/06/24 11:50 BMI result Body Mass Index 36.3 Const General: no acute distress Orientation/consciousness: patient oriented x3 Limitations: physical limitations Eyes General: appearance normal, both eyes and all related structures EOM: EOMs intact bilaterally Neck Neck: Yes full ROM Chest Chest palpation & inspection: normal inspection of the chest Resp Effort & Inspection: normal respiratory effort, able to speak in complete sentences, normal respiratory pattern, no audible wheezes and no cough Cardio Jugular venous distension: no JVD GI Inspection: Yes normal to inspection Back/Spine/Pelvis Other: On physical exam there is very well-healed scar in the projection of the patient's lumbar spine in the most lower portion of the lumbar vertebra. The patient demonstrate wobbly gait, she demonstrates weakness in bilateral lower extremities, she is unable to walk longer than 10-15 yd without resting. She needs to flex forward when resting to alleviate her pain. She denies pelvic organ dysfunction. She admits Valsalva maneuver aggravates her pain. Neuro General: patient oriented x3 and gait normal Extrem General: No pedal edema Psych Speech and movement: Normal speech and movement present Affect: normal affect Attitude: cooperative Thought process: Normal thought process present Thought content: Normal thought content present Insight: Good insight present (Psych) Judgement: Good judgement present (Psych) Assessment & Plan Assessment & Plan (1) Lumbar stenosis with neurogenic claudication: Code(s): M48.062 - Spinal stenosis, lumbar region with neurogenic claudication Category: Medical (2) Post laminectomy syndrome: Code(s): M96.1 - Postlaminectomy syndrome, not elsewhere classified Category: Medical (3) Chronic pain syndrome: Code(s): G89.4 - Chronic pain syndrome Category: Medical Plan I decided to switch and try Nevro SCS for this patient. I will see how is she doing on Nevro machine. She will give us a call and tell us if the Nevro stimulation is better and if she feels more pain relief. The dressing change was performed today. The wounds are dry and there is no pathological discharge no swelling and no redness. Wounds were washed with ChloraPrep and sterile dry dressing was applied including dressing which holds the Nevro device. Antibiotic was prescribed for her again to continue, she will take probiotics with food in between the doses of the antibiotics. She will give us a call and if she wants to continue trial throughout the weekend we will see her on Monday. Otherwise we will remove the electrodes on Monday. Medications: Refilled cephalexin Take OTC probiotics in between the doses of the antibiotics with food 1,000 mg (2 x 500 mg) PO Q8H 42 caps 0RF 7 days Patient Instructions: I here by testify that I spent 35 minutes in conversation with this patient as well as planning her care and organizing this note. Coding Level of Care Code Est Pt Level 4 (51632) Diagnoses Lumbar stenosis with neurogenic claudication M48.062 Post laminectomy syndrome M96.1 Chronic pain syndrome G89.4
--- OUTSIDE RECORDS SUMMARY | 2024-11-07 01:45 | XMS_ITS | Continuity of Care Document ---
Author Organization [facility] Address [address] [facility] [address] [place], [place] Phone [phone] Social History Type Date Description Comments Sex Unknown Allergies and adverse reactions Active Allergies Criticality Reaction Severity Comments Date Shellfish-Derived Products Unable to assess criticality 03/08/2024 Dairy Unable to assess criticality 03/08/2024
== END 2024-11-06 12:53 | disposition home or self-care (01) ==
PROVIDERS: Visit Provider Anesthesiology
DX: M48.062 Spinal stenosis, lumbar region with neurogenic claudication (principal); M96.1 Postlaminectomy syndrome, not elsewhere classified; G89.4 Chronic pain syndrome
CPT/HCPCS: 99024

== ENCOUNTER → 2024-11-06 11:36 | Outpatient (BNVA) | payer BC, SELFPAY | PROVIDERS: Visit Provider Anesthesiology ==

== ENCOUNTER 2024-11-11 13:01 | Outpatient (AMB) | payer BC, SELFPAY ==
--- OUTSIDE RECORDS SUMMARY | 2024-11-11 13:05 | XMS_ITS | Continuity of Care Document ---
Author Organization [facility] Address [address] [facility] [address] [place], [place] Phone [phone] Social History Type Date Description Comments Sex Unknown Allergies and adverse reactions Active Allergies Criticality Reaction Severity Comments Date Shellfish-Derived Products Unable to assess criticality 03/08/2024 Dairy Unable to assess criticality 03/08/2024
--- NOTE | 2024-11-11 13:09 | A.OFFVIS_ITS ---
Vital Signs 11/11/24 13:11 Height 5 ft 1 in Weight 192 lb BMI 36.3 BP 124/70 Blood Pressure Location Lt brachial Position Sitting Respiration 16 Pulse 102 H Pulse Source Pulse Oximeter Pulse Oximetry (%) 96 Oxygen Delivery Method Room Air Intake Visit Reasons: follow up Allergies No Known Allergies Allergy (Verified 11/11/24 13:13) HPI Comments Details: Sagrario is in my office today after completing a trial of [place] [employer] following Nevro spinal cord stimulator. Because of her mostly axial back pain I decided to switch the trial for Nevro SCS. [place] [employer] she reported only 50% pain improvement and some improvement in mobility. However when she was placed on Nevro she reported up to 70% pain improvement at rest and 65% improvement with activities, she reported that she was able to function for entire day, is able to take her dog to the walk which she was not able to p erform for many years. Patient is very enthusiastic and eager to go for implantation of Nevro SCS. On the CT scan of her lumbar spine there is L4-5 and S1 endplate Modic type changes which however not very prominent on the MRI. I contemplated for awhile the intercept procedure for the patient however she denies pain increase with prolonged sitting. Reports pain with standing and walking getting more active is more prominent. She actually finds relief of the pain with forward flexion and this is another point against vertebra genic pain syndrome. Chronic opioid therapy was discussed with the patient in the past. Prior: Complains on unstable gait, inability to walk for long period of time, tiredness with walking in the lower extremities need to lean forward and sit down after the short periods of walking as well as pain in the projection of the left groin and pain in anterior thighs. The symptoms of neurogenic claudication related to patient's spinal stenosis and history of spine surgery. She was seen by Dr. Buchanan and in his no Dr. Buchanan stated that her condition in her back otherwise would require additional surgery on additional spinal levels however the patient has advanced severe osteoporosis and therefore he will not be able to offer surgery to this patient. He recommended patient physical therapy, he recommended her to go to pain management. She had multiple sessions of physical therapy, massage therapy, herbal and homeopathic treatment. She had an MRI of the lumbar spine recently which was evaluated by Dr. Buchanan and described in his note. She has advanced spinal canal stenosis in the lumbar spine. [facility] Medical History Scoliosis Lumbar stenosis Osteoarthritis Post laminectomy syndrome Chronic pain syndrome Sleep apnea Surgical History History of back surgery Social History Patient Tobacco Use Status: Former Tobacco user Years Smoked: quit 6 years ago. started at age 18, 1PPD Second Hand Smoke Exposure: No Review of Systems Const All systems reviewed & are unremarkable except as noted in HPI and below Physical Exam Const General: no acute distress Orientation/consciousness: patient oriented x3 Limitations: physical limitations Eyes General: appearance normal, both eyes and all related structures EOM: EOMs intact bilaterally Neck Neck: Yes full ROM Chest Chest palpation & inspection: normal inspection of the chest Resp Effort & Inspection: normal respiratory effort, able to speak in complete sentences, normal respiratory pattern, no audible wheezes and no cough Cardio Jugular venous distension: no JVD GI Inspection: Yes normal to inspection Back/Spine/Pelvis Other: On physical exam there is very well-healed scar in the projection of the patient's lumbar spine in the most lower portion of the lumbar vertebra. The patient demonstrate wobbly gait, she demonstrates weakness in bilateral lower extremities, she is unable to walk longer than 10-15 yd without resting. She needs to flex forward when resting to alleviate her pain. She denies pelvic organ dysfunction. She admits Valsalva maneuver aggravates her pain. Neuro General: patient oriented x3 and gait normal Extrem General: No pedal edema Psych Speech and movement: Normal speech and movement present Affect: normal affect Attitude: cooperative Thought process: Normal thought process present Thought content: Normal thought content present Insight: Good insight present (Psych) Judgement: Good judgement present (Psych) Assessment & Plan Assessment & Plan (1) Lumbar stenosis with neurogenic claudication: Code(s): M48.062 - Spinal stenosis, lumbar region with neurogenic claudication Category: Medical (2) Post laminectomy syndrome: Code(s): M96.1 - Postlaminectomy syndrome, not elsewhere classified Category: Medical (3) Chronic pain syndrome: Code(s): G89.4 - Chronic pain syndrome Category: Medical Plan The decision was made today to schedule her for Nevro SCS. See discussion as above. I will schedule this patient for implantation of Nevro SCS under general anesthesia. Coding Level of Care Code Est Pt Level 3 (45819) Diagnoses Lumbar stenosis with neurogenic claudication M48.062 Post laminectomy syndrome M96.1 Chronic pain syndrome G89.4
[2024-11-11 13:11] VITALS: BP 124/70; PULSE 102; RESP 16; O2SAT 96; BMI 36.3
== END 2024-11-11 13:42 | disposition home or self-care (01) ==
PROVIDERS: Visit Provider Anesthesiology
DX: M48.062 Spinal stenosis, lumbar region with neurogenic claudication (principal); M96.1 Postlaminectomy syndrome, not elsewhere classified; G89.4 Chronic pain syndrome
CPT/HCPCS: 99024

== ENCOUNTER → 2024-11-11 13:01 | Outpatient (BNVA) | payer BC, SELFPAY | PROVIDERS: Visit Provider Anesthesiology ==

== ENCOUNTER 2025-01-14 11:25 | Outpatient (AMB) | payer MEDICARE, SELFPAY ==
[2025-01-14 11:30] VITALS: BP 128/78; PULSE 93; O2SAT 96; BMI 35.5
--- NOTE | 2025-01-14 11:30 | A.OFFVIS_ITS ---
Vital Signs 01/14/25 11:30 Height 5 ft 1 in Weight 188 lb BMI 35.5 BP 128/78 Blood Pressure Location Rt brachial Position Sitting Pulse 93 Pulse Source Doppler Pulse Oximetry (%) 96 Oxygen Delivery Method Room Air Comment PT refused weight- per pt verbal weight Intake Visit Reasons: Obstructive sleep apnea Allergies No Known Allergies Allergy (Verified 01/14/25 11:34) HPI HPI Obstructive sleep apnea: Details: 79-year-old lady, former approximately 30 pack-year smoker, quit at 46 years of age, now referred for evaluation of likely underlying obstructive sleep apnea. Per patient she sleeps approximately 7 hours and wakes up feeling not well rested. She does complain of daytime sleepiness and hypersomnolence. She is interested in further evaluation. Patient also complains of intermittent environmental allergies for which she occasionally uses Zyrtec. She does say that she intermittently gets sensation of chest less throat tightness with intermittent wheezing. She denies family history of lung disease, except COPD in her sister who was a smoker. After the last office visit patient started on her CPAP therapy with improved symptom control. She is scheduled for placement of spinal stimulator and is undergoing workup for normal pressure hydrocephalus. [facility] Medical History Scoliosis Lumbar stenosis Osteoarthritis Post laminectomy syndrome Chronic pain syndrome Sleep apnea Surgical History History of back surgery Social History Patient Tobacco Use Status: Former Tobacco user Years Smoked: quit 6 years ago. started at age 18, 1PPD Second Hand Smoke Exposure: No Review of Systems Const Denies daytime sleepiness, Denies excessive sweating, Denies fatigue, Denies fever(s), Denies lethargy, Reports malaise, Denies night sweats, Denies snoring and Denies weight loss Eyes Denies blurry vision and Denies itchy eyes ENT Reports dizziness, Denies nasal congestion, Denies post nasal drip, Denies sinus pain, Denies sinus pressure and Denies other ( Thrush) Card Denies chest pain, Denies pedal edema, Denies dyspnea, Denies orthopnea and Denies paroxysmal nocturnal dyspnea Resp Denies cough, Denies hemoptysis, Denies excessive phlegm production, Denies dyspnea, Denies snoring and Denies wheezing GI Denies abdominal pain and Denies heartburn Musc Denies myalgias, Denies arthralgias and Denies joint swelling Skin/Breast Denies rash Neuro Reports dizziness, Denies memory loss and Denies seizure-like activity Psych Denies abnormal sleep pattern, Denies anxiety and Denies memory loss Endo Denies excessive sweating, Denies fatigue and Denies heat intolerance Virgil/Lymph Denies easy bruising Aller/Immun Denies itchy eyes, Denies seasonal rhinorrhea and Denies wheezing Physical Exam Vital Signs: Last Vital Signs Pulse 93 01/14/25 11:30 BP 128/78 01/14/25 11:30 Pulse Ox 96 01/14/25 11:30 Oxygen Delivery Method Room Air 01/14/25 11:30 BMI result Body Mass Index 35.5 Const General: no acute distress and alert Nutritional Appearance: not obese Orientation/consciousness: Other orientation findings ( oriented) HEENT Head: Yes atraumatic Eyes General: appearance normal, both eyes and all related structures Sclerae: sclerae normal EOM: EOMs intact bilaterally Neck Neck: Yes supple Lymphatic: no lymphadenopathy noted Resp Effort & Inspection: normal respiratory effort and no use of accessory muscles Auscultation: clear to auscultation bilaterally Cardio Rate: regular rate Rhythm: regular rhythm Heart sounds: no gallops, no murmurs and no rubs Skin General skin exam: other ( warm) Extrem General: No clubbing, No cyanosis and No edema Assessment & Plan Assessment & Plan (1) CATHLEEN (obstructive sleep apnea): Code(s): G47.33 - Obstructive sleep apnea (adult) (pediatric) Category: Medical Plan: Therapy and compliance report reviewed - patient is benefitting from and is compliant with noninvasive positive pressure ventilation treatment, using it greater than 70% of the time, more than 4 hours per night. Continue CPAP therapy. Coding Level of Care Code Est Pt Level 3 (47599) Diagnoses CATHLEEN (obstructive sleep apnea) G47.33
--- OUTSIDE RECORDS SUMMARY | 2025-01-14 12:41 | XMS_ITS | Continuity of Care Document ---
Author Organization [facility] Address [address] [place], [place] Phone [phone] Social History Type Date Description Comments Sex Unknown Allergies and adverse reactions Active Allergies Criticality Reaction Severity Comments Date Shellfish-Derived Products Unable to assess criticality 03/08/2024 Dairy Unable to assess criticality 03/08/2024
== END 2025-01-14 11:49 | disposition home or self-care (01) ==
PROVIDERS: PCP Nurse Practitioner Primary Care; Visit Provider Internal Medicine Pulmonary Disease
DX: G47.33 Obstructive sleep apnea (adult) (pediatric) (principal)
CPT/HCPCS: 99213

== ENCOUNTER → 2025-01-14 11:25 | Outpatient (BNVA) | payer MEDICARE, SELFPAY | PROVIDERS: Visit Provider Internal Medicine Pulmonary Disease | DX: G47.33 Obstructive sleep apnea (adult) (pediatric) (principal); Z99.89 Dependence on other enabling machines and devices | CPT/HCPCS: 99212 ==

== ENCOUNTER 2025-01-17 07:21 | Day surgery (SDC) | payer MEDICARE, SELFPAY ==
[2025-01-15 14:03] VITALS: BMI 36.3
[2025-01-17] VITALS (7 sets, daily range): BP systolic 109–154; BP diastolic 50–87; PULSE 59–66; RESP 16–20; TEMP 36.2–36.7; O2SAT 95–98; BMI 36.4
--- NOTE | ~2025-01-17 | FL_ITS ---
EXAMINATION: XR FLUOROSCOPY WITH IMAGES CLINICAL INFORMATION: Spinal simulator implant. COMPARISON: MRI lumbar 03/20/2024. TECHNIQUE: Fluoroscopy provided to: Dr. Albrecht Fluoroscopy time: 3 minutes, 11 seconds DAP: 25.886 Gycm2 Images: 8 FINDINGS: 8 fluoroscopic spot images of the thoracolumbar spine during attempted spinal stimulator placement. Anatomical complications were encountered by the physician, and placement was hence canceled. Patient will be referred to a spinal surgeon. Please refer to the full operative report for details. FL/FL guidance in OR IMPRESSION: Fluoroscopic guidance. Electronically signed by: Keegan Guadarrama MD 01/17/2025 02:26 PM [facility]
--- NOTE | 2025-01-17 08:13 | HO.ANESPROP2 ---
HPI - Anesthesia Eval Consult details Narrative: spinal cord stimulation implant PMFSH Active Problems Active Problems: All Active Problems Obesity (BMI 30-39.9) (Acute) Chronic pain syndrome (Acute) Wheezing (Acute) CATHLEEN (obstructive sleep apnea) (Acute) Post laminectomy syndrome (Acute) Osteoarthritis of left hip (Acute) Lumbar stenosis with neurogenic claudication (Acute) Past Medical History Medical History (Updated 11/05/24 @ 12:08 by Daniel Bojorquez MD) Scoliosis Lumbar stenosis Osteoarthritis Post laminectomy syndrome Chronic pain syndrome Sleep apnea Family History Family history of problems with anesthesia: No Surgical History Surgical History (Updated 01/17/25 @ 08:22 by Katerin Castle RN) History of knee replacement History of hysterectomy S/P placement of nerve stimulator History of back surgery History of Problems with Anesthesia: No Social History Social History Are you a primary home care physical therapist to a significant other at home: No Do you presently have visiting nurse or other home services: No Patient Tobacco Use Status: Former Tobacco user Tobacco use type: Cigarette Years Smoked: quit 6 years ago. started at age 18, 1PPD Second Hand Smoke Exposure: No Meds Allergies Allergy/AdvReac Type Severity Reaction Status Date / Time lobster Allergy Severe Anaphylaxis Verified 01/17/25 08:08 Active Medications: Current Medications Cefazolin Sodium/Dextrose (Ancef) 2 gm in 50 mls @ 100 mls/hr IV PREOP ONE Stop: 01/17/25 08:22 Home Medications ?Medication ?Instructions ?Recorded ?Confirmed ?Last Taken ?Type sertraline 25 mg tablet 50 mg PO DAILY 01/14/25 01/15/25 Unknown History Fish Oil 01/17/25 01/03/25 History Exam Height,Weight and Vital Signs: Height 5 ft 1 in Weight 87.09 kg Airway Mallampati Class: I TM Dist: <=3cm Neck ROM: Full Loose/Missing/Broken Teeth: No Heart: ok Lungs: ok Assessment and Plan Assessment Anesthesia Assessment: Anesthesia Plan Discussed Final Anesthetic Review Family History of Problems with Anesthesia: No History of Problems with Anesthesia: No NPO: Yes ASA Class: III Final Preanesthetic Review: No Changes in Pt Med Stat, Meds/Allgs Chart Reviewed, Consent Obtained/Reviewed and Anes Risks/Benef Reviewed Patient Risk: Intermediate Procedure Risk: Intermediate Anesthetic Plan Anesthetic Plan: GA and Agree w/ Assess. and Plan Disposition: Standard PACU
--- NOTE | 2025-01-17 08:23 | MHC.SHP ---
Pre-Procedural Eval Section A - 24 Hr Update-Section A only Date of Service: 01/17/25 The patient is an INPATIENT: No Changes since office visit: Yes Patient answered all questions The patient has been examined within 24 hours of the surgical procedure. The History & Physical has been completed within 30 days and I have reviewed it.: No Section B - Complete if H&P > 30 days Chief Complaint: Postlaminectomy syndrome,chronic pain Details of Present Illness: as above Relevant Family History (Specify if Yes): No Relevant Social History: None Present Medications: None Medical History: No relevant PMH History of Previous Operations: Relevant previous surgery/procedure and date(s) Allergies: Allergies Allergy/AdvReac Type Severity Reaction Status Date / Time lobster Allergy Severe Anaphylaxis Verified 01/17/25 08:08 Review of Systems Sugical H&P ROS: Negative: Cardiovascular, Neurological, Psychiatric, Hem-Onc, Allergic/Immunologic, Gastrointestinal, Genitourinary, Integumentary, Endocrine and Eyes/Ears/Nose/Throat and Yes, Specify: Constitution (obesity), Respiratory (CATHLEEN) and Musculoskeletal (spinal stenosis, scoliosis) Exam Surgical H&P Exam: Normal: HEENT, Normal: Heart, Normal: Lungs, Normal: Extremities, Normal: Abdomen, Normal: Skin and Normal: Neurological Plan Diagnosis/Plan: Unchanged I have reviewed the history and physical and performed a pertinent physical examination on my patient. No changes have occurred unless specified. Time Spent With Patient Time: Total time managing care of this patient today ___5_ minutes.
[2025-01-17] MEDS: Lactated Ringers 1,000 ML 80 ML IVCONT (08:34)
[2025-01-17] MEDS: ceFAZolin Sodium/Dextrose,Iso 2 GM/50 ML PIGGYBACK IV (09:05)
--- NOTE | 2025-01-17 10:45 | PM.OP ---
Brief Operative Note Date of Service: 01/17/25 Pre-op diagnosis: postlaminectomy syndrome Post-op diagnosis: same Procedure: attempt at implantation of spinal cord stimulation Nevro. Implants: none Surgeon: Wilmer Albrecht MD Anesthesia: GLMA Was an Marketing Researcher used for this Procedure?: No Estimated blood loss (mL): 10 Condition: stable Disposition: PACU Complications (if any): none
--- NOTE | 2025-01-17 10:45 | W.PM.OPN ---
Operative Note Operative Note Date of Service: 01/17/25 Narrative: Attempted implantation of Nevro spinal cord stimulator . Sagrario is very pleasant 79 years old lady who came today- to the operating room for implantation of spinal cord stimulator Nevro for the treatment of postlaminectomy syndrome and chronic pain syndrome. ?Preoperatively patient received ? cefazolin 2 g approximately 20 minutes before the incision. After obtaining informed consent were risks and benefits as well as alternatives were explained to the patient, the patient was brought to the operating room, she was positioned prone on operating table, ASA monitor were applied general anesthesia was induced and LMA was inserted. ?Time-out was performed delineating correct site, side, the nature of the procedure, patient's allergy, preoperative antibiotic if needed.? All operating room staff was participating in OR time-out procedure. Patient's entire back was prepped with Chloraprep twice and draped with full body fenestrated laparoscopy drape including Ioban film.? Sterilely draped C-arm was brought over operating field and square picture of the T11, T12, L1, L2 vertebrae? were demonstrated on the screen.? ?In the projection of L1, L2, and L3 spinous processes skin was infiltrated with mixture of lidocaine 2% and ropivacaine 0.5% one-to-one and after that 7.5 cm incision was made in strict midline fashion using 10 blade scalpel. The wound was deepened and widened using electrocautery and dull dissection until prevertebral fascia was freed from overlying tissues. Attention FIRST? was concentrated on the T11-T12 epidural interspace. The location of the projection of L1 vertebra right pedicle was found on the skin using C-arm.? 10 cm 14 gauge? introducer epidural needle was inserted through the thea and advanced to right T12-L1 epidural interspace.? The advancement of the needle was performed on anterior posterior and lateral views.?Loss of resistance to air? technique were used to locate epidural space., guitar wire was used to confirm position of the needle in the epidural space, epidural lead was inserted through the needle and any attempt of advancement of the epidural lead met resistance and the epidural lead was deviating either to left or right lateral gutter of the spinal canal. The decision was made to change the approach and advance the epidural needle to T10-T11 epidural interspace. 5 in long 14 gauge needle was reinserted into the previous insertion site and it was advanced to were T11-T12 epidural interspace. The advancement of the needle was performed on anterior posterior and lateral views. Loss of resistance to air technique were used to locate epidural space. Guitar wire was used to confirm position of the needle in the epidural space, and after that epidural stimulate lead was inserted into the epidural space and attempt of advancement of the epidural lead to the patient's epidural space was made however it was again meeting resistance and after several attempts with manipulation of the epidural lead we noticed CSF coming in the hub of the needle. The decision was made to try to reach epidural space on the left side at T11-T12 interval and unfortunately after reaching epidural space we again noticed small amount of CSF coming from the epidural space. On the lateral views the tip of the needle on all 3 attempts was demonstrated not penetrating dura matter therefore I would have to make an assumption that it is manipulation of the epidural leads in the epidural space full of adhesions caused rupture of the dura matter and leak of the epidural space. The patient is suffering from increased CSF pressure and therefore it could be a risk for CSF leak. At this moment I decided to stop the procedure. The needle was removed the irrigation was applied using saline with vancomycin and then the wound was closed using 0-0 Polysorb sutures, after that 2-0 Polysorb sutures were used to approximate the level of the skin, rare james were applied to the level of the skin. After that sterile dressing 4x4s and Tegaderm were applied.
--- NOTE | 2025-01-17 11:48 | PC.NURSE ---
daughter and patient aware that surgeon will review next option for patient at f/u appt. next .
== END 2025-01-17 11:48 | disposition home or self-care (01) ==
PROVIDERS: Visit Provider Anesthesiology
PROC: (CPT 63650; principal; 2025-01-17 09:00)
DX: M96.1 Postlaminectomy syndrome, not elsewhere classified (principal); G96.09 Other spinal cerebrospinal fluid leak; Y83.1 Surgical operation with implant of artificial internal device as the cause of abnormal reaction of the patient, or of later complication, without mention of misadventure at the time of the procedure; Y75.8 Miscellaneous neurological devices associated with adverse incidents, not elsewhere classified; Y92.234 Operating room of hospital as the place of occurrence of the external cause; M48.062 Spinal stenosis, lumbar region with neurogenic claudication; R83.8 Other abnormal findings in cerebrospinal fluid; G96.12 Meningeal adhesions (cerebral) (spinal); G89.4 Chronic pain syndrome; M41.9 Scoliosis, unspecified; M48.061 Spinal stenosis, lumbar region without neurogenic claudication; G47.33 Obstructive sleep apnea (adult) (pediatric); M19.90 Unspecified osteoarthritis, unspecified site; Z98.890 Other specified postprocedural states; Z87.891 Personal history of nicotine dependence; Z53.09 Procedure and treatment not carried out because of other contraindication
CPT/HCPCS: 63650; C1778; C1816; J0690; J2003; J2250; J2704; J2795; J3010; J3370

== ENCOUNTER → 2025-01-17 07:21 | Outpatient (BNV) | payer MEDICARE, SELFPAY | PROVIDERS: Visit Provider Anesthesiology | DX: M96.1 Postlaminectomy syndrome, not elsewhere classified (principal) | CPT/HCPCS: 63650 ==

== ENCOUNTER 2025-01-23 10:54 | Outpatient (AMB) | payer BC, SELFPAY ==
--- NOTE | 2025-01-23 10:55 | A.OFFVIS_ITS ---
Vital Signs 01/23/25 10:56 Height 5 ft 1 in Weight 189 lb BMI 35.7 BP 149/82 H Blood Pressure Location Rt brachial Position Sitting Pulse 70 Pulse Source Pulse Oximeter Pulse Oximetry (%) 96 Oxygen Delivery Method Room Air Intake Visit Reasons: S/p Nevro SCS Implant 01/17/25 Accompanied by: Daughter Allergies lobster Allergy (Severe, Verified 01/23/25 10:59) Anaphylaxis HPI Comments Details: Sagrario is in my office today after attempt to implant Nevro spinal cord stimulator. Unfortunately several attempts were done to manipulate epidural leads into her posterior epidural space and thoracic spine. Each attempt went into small amount of CSF seeping out of the needle. Patient has pseudotumor cerebri and her CSF pressure is elevated. Maybe this is why I was not able to succeed with the placement of the spinal cord stimulator leads during the implantation. Today we discussed possibility of treating her pain with intrathecal pain pump [employer] versus chronic therapy with buprenorphine opioids. The patient also was asking multiple questions about pseudotumor cerebri. She is scheduled for a trial spinal tap to be performed with her neurologist appointment. This spinal tap needs to determine whether patient will be a good candidate for the BRAIDER TENDER shunt. Alternatively treatment with acetazolamide potentially could decrease her intra cranial/CSF pressure. completing a trial of [employer] following Nevro spinal cord stimulator. Because of her mostly axial back pain I decided to switch the trial for Nevro SCS. [employer] she reported only 50% pain improvement and some improvement in mobility. However when she was placed on Nevro she reported up to 70% pain improvement at rest and 65% improvement with activities, she reported that she was able to function for entire day, is able to take her dog to the walk which she was not able to perform for many years. Patient is very enthusiastic and eager to go for implantation of Nevro SCS. On the CT scan of her lumbar spine there is L4-5 and S1 endplate Modic type changes which however not very prominent on the MRI. I contemplated for awhile the intercept procedure for the patient however she denies pain increase with prolonged sitting. Reports pain with standing and walking getting more active is more prominent. She actually finds relief of the pain with forward flexion and this is another point against vertebra genic pain syndrome. Chronic opioid therapy was discussed with the patient in the past. Prior: Complains on unstable gait, inability to walk for long period of time, tiredness with walking in the lower extremities need to lean forward and sit down after the short periods of walking as well as pain in the projection of the left groin and pain in anterior thighs. The symptoms of neurogenic claudication related to patient's spinal stenosis and history of spine surgery. She was seen by Dr. Buchanan and in his no Dr. Buchanan stated that her condition in her back otherwise would require additional surgery on additional spinal levels however the patient has advanced severe osteoporosis and therefore he will not be able to offer surgery to this patient. He recommended patient physical therapy, he recommended her to go to pain management. She had multiple sessions of physical therapy, massage therapy, herbal and homeopathic treatment. She had an MRI of the lumbar spine recently which was evaluated by Dr. Buchanan and described in his note. She has advanced spinal canal stenosis in the lumbar spine. [facility] Medical History Scoliosis Lumbar stenosis Osteoarthritis Post laminectomy syndrome Chronic pain syndrome Sleep apnea Surgical History History of knee replacement History of hysterectomy S/P placement of nerve stimulator History of back surgery Social History Are you a primary clinical manager home care to a significant other at home: No Do you presently have visiting nurse or other home services: No Patient Tobacco Use Status: Former Tobacco user Tobacco use type: Cigarette Years Smoked: quit 6 years ago. started at age 18, 1PPD Second Hand Smoke Exposure: No Review of Systems Const All systems reviewed & are unremarkable except as noted in HPI and below Physical Exam Vital Signs: Last Vital Signs Pulse 70 01/23/25 10:56 BP 149/82 H 01/23/25 10:56 Pulse Ox 96 01/23/25 10:56 Oxygen Delivery Method Room Air 01/23/25 10:56 BMI result Body Mass Index 35.7 Const General: no acute distress Orientation/consciousness: patient oriented x3 Limitations: physical limitations Eyes General: appearance normal, both eyes and all related structures EOM: EOMs intact bilaterally Neck Neck: Yes full ROM Chest Chest palpation & inspection: normal inspection of the chest Resp Effort & Inspection: normal respiratory effort, able to speak in complete sentences, normal respiratory pattern, no audible wheezes and no cough Cardio Jugular venous distension: no JVD GI Inspection: Yes normal to inspection Back/Spine/Pelvis Other: On physical exam there is very well-healed scar in the projection of the p ling's lumbar spine in the most lower portion of the lumbar vertebra. The patient demonstrate wobbly gait, she demonstrates weakness in bilateral lower extremities, she is unable to walk longer than 10-15 yd without resting. She needs to flex forward when resting to alleviate her pain. She denies pelvic organ dysfunction. She admits Valsalva maneuver aggravates her pain. Neuro General: patient oriented x3 and gait normal Extrem General: No pedal edema Psych Speech and movement: Normal speech and movement present Affect: normal affect Attitude: cooperative Thought process: Normal thought process present Thought content: Normal thought content present Insight: Good insight present (Psych) Judgement: Good judgement present (Psych) Assessment & Plan Assessment & Plan (1) Lumbar stenosis with neurogenic claudication: Code(s): M48.062 - Spinal stenosis, lumbar region with neurogenic claudication Category: Medical (2) Post laminectomy syndrome: Code(s): M96.1 - Postlaminectomy syndrome, not elsewhere classified Category: Medical (3) Chronic pain syndrome: Code(s): G89.4 - Chronic pain syndrome Category: Medical Plan Failure to implant Nevro SCS. Potentially high CSF pressure resulted in sleeping of the CSF in each needle attempt to advance the epidural leads I would perform. Today we discussed possibility of treating her with intrathecal pain pump versus treating her pain with chronic friend morphine in the framework of chronic oral opioid program. Patient will be thinking about those options. She is scheduled for the appointment with the neurology [facility] who would like to perform a spinal tap test. The spinal tap test is needed for determination whether BRAIDER TENDER shunt will be working solution for her pseudotumor cerebri. Ther efore since the patient did not receive implantation of the device and there is no hardware in her back the spinal tap can not be performed any given day after staple removal. She also would like to schedule an appointment for the follow-up 2nd opinion with neurosurgeons in [facility] and [facility]. We agreed that after she completes the treatment with Neurology/Neurosurgery she will give us a call and schedule an appointment with me to decide what modality of chronic pain management she will choose. Patient Instructions: I here by testify that I spent 39 minutes in conversation with this patient as well as planning her care and organizing this note. Coding Level of Care Code Est Pt Level 4 (27345) Diagnoses Lumbar stenosis with neurogenic claudication M48.062 Post laminectomy syndrome M96.1 Chronic pain syndrome G89.4
[2025-01-23 10:56] VITALS: BP 149/82; PULSE 70; O2SAT 96; BMI 35.7
--- OUTSIDE RECORDS SUMMARY | 2025-01-23 12:59 | XMS_ITS | Continuity of Care Document ---
Author Organization [facility] Address [address] [place], [place] Phone [phone] Social History Type Date Description Comments Sex Unknown Allergies and adverse reactions Active Allergies Criticality Reaction Severity Comments Date Shellfish-Derived Products Unable to assess criticality 03/08/2024 Dairy Unable to assess criticality 03/08/2024
== END 2025-01-23 11:39 | disposition home or self-care (01) ==
PROVIDERS: PCP Nurse Practitioner Primary Care; Visit Provider Anesthesiology
DX: M48.062 Spinal stenosis, lumbar region with neurogenic claudication (principal); M96.1 Postlaminectomy syndrome, not elsewhere classified; G89.4 Chronic pain syndrome
CPT/HCPCS: 99024

== ENCOUNTER 2025-01-30 08:58 | Outpatient (AMB) | payer BC, SELFPAY ==
[2025-01-30 09:11] VITALS: BP 149/87; PULSE 74; O2SAT 98; BMI 35.7
--- NOTE | 2025-01-30 09:11 | A.OFFVIS_ITS ---
Vital Signs 01/30/25 09:11 Height 5 ft 1 in Weight 189 lb BMI 35.7 BP 149/87 H Blood Pressure Location Lt brachial Position Sitting Pulse 74 Pulse Source Pulse Oximeter Pulse Oximetry (%) 98 Oxygen Delivery Method Room Air Intake Visit Reasons: S/p Nevro SCS Implant 01/17/25 (2nd Visit) Intake Note: Pain today while walking 10/10, sitting 0/10 Mental Health Orderly Required: No Accompanied by: Self / Same As Patient Allergies lobster Allergy (Severe, Verified 01/30/25 09:12) Anaphylaxis HPI Comments Details: Sagrario is in my office today Two weeks after attempt to implant Nevro spinal cord stimulator. I removed the dressing today minimal redness and minimal swelling exists in the wound but no pathological discharge and no tenderness on palpation. The wound was washed with ChloraPrep, and james were removed. Dry sterile dressing was applied. Hygiene limitations were explained to the patient. I will schedule this patient for trial of intrathecal pain pump with hydromorphone 60 micro g. She is opioid naive. Failure to insert SCS Nevro. Patient has pseudotumor cerebri, due to high CSF pressure the leads were unable to insert without CSF seepage. The procedure was aborted. She is scheduled at the end of January for a trial of spinal tap and walk trial. They may offered to the patient the [employer] PINION ADJUSTER shunt if the trial is positive. Acetazolamide will be offered to the patient if the trial is negative. On the CT scan of her lumbar spine there is L4-5 and S1 endplate Modic type changes which however not very prominent on the MRI. I contemplated for awhile the intercept procedure for the patient however she denies pain increase with prolonged sitting. Reports pain with standing and walking getting more active is more prominent. She actually finds relief of the pain with forward flexion and this is another point against vertebra genic pain syndrome. Chronic opioid therapy was discussed with the patient in the past. Prior: Complains on unstable gait, inability to walk for long period of time, tiredness with walking in the lower extremities need to lean forward and sit down after the short periods of walking as well as pain in the projection of the left groin and pain in anterior thighs. The symptoms of neurogenic claudication related to patient's spinal stenosis and history of spine surgery. She was seen by Dr. Buchanan and in his no Dr. Buchanan stated that her condition in her back otherwise would require additional surgery on additional spinal levels however the patient has advanced severe osteoporosis and therefore he will not be able to offer surgery to this patient. He recommended patient physical therapy, he recommended her to go to pain management. She had multiple sessions of physical therapy, massage therapy, herbal and homeopathic treatment. She had an MRI of the lumbar spine recently which was evaluated by Dr. Buchanan and described in his note. She has advanced spinal canal stenosis in the lumbar spine. [facility] Medical History Scoliosis Lumbar stenosis Osteoarthritis Post laminectomy syndrome Chronic pain syndrome Sleep apnea Surgical History History of knee replacement History of hysterectomy S/P placement of nerve stimulator History of back surgery Social History Are you a primary director long term care to a significant other at home: No Do you presently have visiting nurse or other home services: No Patient Tobacco Use Status: Former Tobacco user Tobacco use type: Cigarette Years Smoked: quit 6 years ago. started at age 18, 1PPD Second Hand Smoke Exposure: No Review of Systems Const All systems reviewed & are unremarkable except as noted in HPI and below Physical Exam Vital Signs: Last Vital Signs Pulse 74 01/30/25 09:11 BP 149/87 H 01/30/25 09:11 Pulse Ox 98 01/30/25 09:11 Oxygen Delivery Method Room Air 01/30/25 09:11 BMI result Body Mass Index 35.7 Const General: no acute distress Orientation/consciousness: patient oriented x3 Limitations: physical limitations Eyes General: appearance normal, both eyes and all related structures EOM: EOMs intact bilaterally Neck Neck: Yes full ROM Chest Chest palpation & inspection: normal inspection of the chest Resp Effort & Inspection: normal respiratory effort, able to speak in complete sentences, normal respiratory pattern, no audible wheezes and no cough Cardio Jugular venous distension: no JVD GI Inspection: Yes normal to inspection Back/Spine/Pelvis Other: On physical exam there is very well-healed scar in the projection of the patient's lumbar spine in the most lower portion of the lumbar vertebra. The patient demonstrate wobbly gait, she demonstrates weakness in bilateral lower extremities, she is unable to walk longer than 10-15 yd without resting. She needs to flex forward when resting to alleviate her pain. She denies pelvic organ dysfunction. She admits Valsalva maneuver aggravates her pain. Neuro General: patient oriented x3 and gait normal Extrem General: No pedal edema Psych Speech and movement: Normal speech and movement present Affect: normal affect Attitude: cooperative Thought process: Normal thought process present Thought content: Normal thought content present Insight: Good insight present (Psych) Judgement: Good judgement present (Psych) Assessment & Plan Assessment & Plan (1) Lumbar stenosis with neurogenic claudication: Code(s): M48.062 - Spinal stenosis, lumbar region with neurogenic claudication Category: Medical (2) Post laminectomy syndrome: Code(s): M96.1 - Postlaminectomy syndrome, not elsewhere classified Category: Medical (3) Chronic pain syndrome: Code(s): G89.4 - Chronic pain syndrome Category: Medical Plan Failure to implant Nevro SCS. Potentially high CSF pressure resulted in sleeping of the CSF in each needle attempt to advance the epidural leads I would perform. She is opioid naive and will be a good candidate for intrathecal pain pump. I will do a trial with 60 micro g of hydromorphone for her. She is scheduled for A trial of walking after spinal tap in [place]. If she will be improved with a gait they will offer her CANNON PINION ADJUSTER shunt. Implantation of the pain pump will be explained to the patient After the trial. I promised her that we will be able to potentially schedule her refills once in 3-1/2 months Making her refills 3 times a year. Patient Instructions: I here by testify that I spent 32 minutes in conversation with this patient as well as planning her care and organizing this note. Coding Level of Care Code Est Pt Level 4 (23116) Diagnoses Lumbar stenosis with neurogenic claudication M48.062 Post laminectomy syndrome M96.1 Chronic pain syndrome G89.4
--- OUTSIDE RECORDS SUMMARY | 2025-01-30 09:50 | XMS_ITS | Continuity of Care Document ---
Author Organization [facility] Address [address] [place], [place] Phone [phone] Social History Type Date Description Comments Sex Unknown Allergies and adverse reactions Active Allergies Criticality Reaction Severity Comments Date Shellfish-Derived Products Unable to assess criticality 03/08/2024 Dairy Unable to assess criticality 03/08/2024
== END 2025-01-30 09:32 | disposition home or self-care (01) ==
PROVIDERS: PCP Nurse Practitioner Primary Care; Visit Provider Anesthesiology
DX: M48.062 Spinal stenosis, lumbar region with neurogenic claudication (principal); M96.1 Postlaminectomy syndrome, not elsewhere classified; G89.4 Chronic pain syndrome
CPT/HCPCS: 99214

== ENCOUNTER 2025-03-19 14:05 | Outpatient (AMB) | payer MEDICARE, SELFPAY ==
--- NOTE | 2025-03-19 14:05 | MHC.OFFVIS ---
Intake Visit Reasons: CATHLEEN/Regional recert. Allergies lobster Allergy (Severe, Verified 01/30/25 09:12) Anaphylaxis HPI HPI CATHLEEN/Regional recert.: Details: 79-year-old lady, former approximately 30 pack-year smoker, quit at 46 years of age, now referred for evaluation of likely underlying obstructive sleep apnea. Per patient she sleeps approximately 7 hours and wakes up feeling not well rested. She does complain of daytime sleepiness and hypersomnolence. She is interested in further evaluation. Patient also complains of intermittent environmental allergies for which she occasionally uses Zyrtec. She does say that she intermittently gets sensation of chest less throat tightness with intermittent wheezing. She denies family history of lung disease, except COPD in her sister who was a smoker. Patient did have shunt placement for normal pressure hydrocephalus after the last office visit. She continues on CPAP therapy with good symptom control, however her insurance changes and now she requires new [id number]-le-stcs evaluation to continue receive her supplies. Also she has complain of cough productive of sputum. [facility] Medical History Scoliosis Lumbar stenosis Osteoarthritis Post laminectomy syndrome Chronic pain syndrome Sleep apnea Surgical History History of knee replacement History of hysterectomy S/P placement of nerve stimulator History of back surgery Social History (Updated 03/19/25 @ 14:07 by Tanya Katz Antolin) Are you a primary patient care technician to a significant other at home: No Do you presently have visiting nurse or other home services: No Patient Tobacco Use Status: Former Tobacco user Tobacco use type: Cigarette Years Smoked: quit 35 years ago. started at age 18, 1PPD Second Hand Smoke Exposure: No Review of Systems Const Denies daytime sleepiness, Denies fever(s), Denies lethargy, Denies malaise, Denies night sweats, Denies snoring and Denies weight loss Eyes Denies blurry vision and Denies itchy eyes ENT Denies nasal congestion, Denies post nasal drip, Denies sinus pain, Denies sinus pressure and Denies other ( Thrush) Card Denies chest pain, Denies pedal edema, Denies dyspnea, Denies orthopnea and Denies paroxysmal nocturnal dyspnea Resp Reports cough, Denies hemoptysis, Reports excessive phlegm production, Denies dyspnea, Denies snoring and Denies wheezing GI Denies abdominal pain and Denies heartburn Musc Denies myalgias, Denies arthralgias and Denies joint swelling Skin/Breast Denies rash Aller/Immun Denies itchy eyes, Denies seasonal rhinorrhea and Denies wheezing Telehealth Telehealth Telehealth Platform: Telephone Location of provider rendering services: practice address Location of patient: address on file Patient Identification confirmed using: Name, : Yes Telehealth method: voice only Patient verbally consented to treatment: Yes Patient verbally consented to billing insurance company: Yes Patient informed of any privacy concerns related to visit: Yes Assessment & Plan Assessment & Plan (1) CATHLEEN (obstructive sleep apnea): Code(s): G47.33 - Obstructive sleep apnea (adult) (pediatric) Category: Medical Plan: Significantly improved symptom control on current CPAP therapy. Continue CPAP therapy. Therapy and compliance report reviewed - patient is benefitting from and is compliant with noninvasive positive pressure ventilation treatment, using it greater than 70% of the time, more than 4 hours per night. Medications: New azithromycin For 250 mg dose pack: take 500 mg today (day 1), then 250 mg for 4 days (days 2-5) PO 6 tabs 0RF Coding Level of Care Code Tele Est Pt Level 3 (20263) Diagnoses CATHLEEN (obstructive sleep apnea) G47.33
--- OUTSIDE RECORDS SUMMARY | 2025-03-19 16:56 | XMS_ITS | Continuity of Care Document ---
Author Organization [facility] Address [address] [facility] [address] [place], [place] Phone [phone] Social History Type Date Description Comments Sex Unknown Allergies and adverse reactions Active Allergies Criticality Reaction Severity Comments Date Shellfish-Derived Products Unable to assess criticality 03/08/2024 Dairy Unable to assess criticality 03/08/2024
== END 2025-03-19 14:52 | disposition home or self-care (01) ==
LOC: HO.HPS 14:05
PROVIDERS: PCP Nurse Practitioner Primary Care; Visit Provider Internal Medicine Pulmonary Disease
DX: G47.33 Obstructive sleep apnea (adult) (pediatric) (principal)
CPT/HCPCS: 99213

== ENCOUNTER → 2025-03-19 14:05 | Outpatient (BNVA) | payer MEDICARE, SELFPAY | PROVIDERS: PCP Nurse Practitioner Primary Care; Visit Provider Internal Medicine Pulmonary Disease ==

== ENCOUNTER 2025-04-16 13:24 | Outpatient (AMB) | payer MEDICARE, SELFPAY ==
[2025-04-16 13:26] VITALS: BP 134/84; PULSE 87; O2SAT 97
--- NOTE | 2025-04-16 13:26 | A.OFFVIS_ITS ---
Vital Signs 04/16/25 13:26 Height 5 ft 1 in BMI Reason not done Patient refused/unable BP 134/84 Blood Pressure Location Rt brachial Pulse 87 Pulse Source Pulse Oximeter Pulse Oximetry (%) 97 Oxygen Delivery Method Room Air Intake Visit Reasons: Obstructive sleep apnea Clerk Television Production Required: No Accompanied by: Self / Same As Patient Allergies lobster Allergy (Severe, Verified 04/16/25 13:28) Anaphylaxis HPI HPI Obstructive sleep apnea: Details: 79-year-old lady, former approximately 30 pack-year smoker, quit at 46 years of age, followed up for CATHLEEN on CPAP and environmental allergies on as needed antihistamines. Patient states that she was not able to get her supplies still, otherwise she has been doing well. [facility] Medical History Scoliosis Lumbar stenosis Osteoarthritis Post laminectomy syndrome Chronic pain syndrome Sleep apnea Surgical History History of knee replacement History of hysterectomy S/P placement of nerve stimulator History of back surgery Social History Are you a primary housekeeper caregiver to a significant other at home: No Do you presently have visiting nurse or other home services: No Patient Tobacco Use Status: Former Tobacco user Tobacco use type: Cigarette Years Smoked: quit 35 years ago. started at age 18, 1PPD Second Hand Smoke Exposure: No Review of Systems Const Denies chills, Denies fatigue, Denies fever(s), Denies weight gain and Denies weight loss Eyes Denies blurry vision and Denies itchy eyes ENT Denies dizziness Card Denies chest pain, Denies leg edema, Denies lightheadedness, Denies palpitations, Denies dyspnea on exertion, Denies orthopnea and Denies other Resp Denies cough, Denies dyspnea on exertion and Denies wheezing GI Denies hematochezia and Denies change in stool character Musc Denies abnormal gait, Denies muscle weakness, Denies numbness, Denies radiating pain into limb and Denies tingling Skin/Breast Denies rash Neuro Denies abnormal gait, Denies dizziness, Denies memory loss, Denies numbness and Denies tingling Psych Denies abnormal sleep pattern, Denies anxiety and Denies memory loss Endo Denies fatigue and Denies palpitations Virgil/Lymph Denies easy bruising Aller/Immun Denies itchy eyes, Denies seasonal rhinorrhea and Denies wheezing Physical Exam Vital Signs: Last Vital Signs Pulse 87 04/16/25 13:26 BP 134/84 04/16/25 13:26 Pulse Ox 97 04/16/25 13:26 Oxygen Delivery Method Room Air 04/16/25 13:26 Const General: no acute distress and alert Nutritional Appearance: not obese Orientation/consciousness: Other orientation findings ( oriented) HEENT Head: Yes atraumatic Eyes General: appearance normal, both eyes and all related structures Sclerae: sclerae normal EOM: EOMs intact bilaterally Neck Neck: Yes supple Lymphatic: no lymphadenopathy noted Resp Effort & Inspection: normal respiratory effort and no use of accessory muscles Auscultation: clear to auscultation bilaterally Cardio Rate: regular rate Rhythm: regular rhythm Heart sounds: no gallops, no murmurs and no rubs Skin General skin exam: other ( warm) Extrem General: No clubbing, No cyanosis and No edema Assessment & Plan Assessment & Plan (1) CATHLEEN (obstructive sleep apnea): Code(s): G47.33 - Obstructive sleep apnea (adult) (pediatric) Category: Medical Plan: Continues on CPAP with good control of underlying sleep apnea symptoms. New supply order placed. (2) Environmental allergies: Code(s): Z91.09 - Other allergy status, other than to drugs and biological substances Category: Medical Plan: Controlled on as needed antihistamines. Continue current regimen. Coding Level of Care Code Est Pt Level 4 (60699) Diagnoses CATHLEEN (obstructive sleep apnea) G47.33 Environmental allergies Z91.09
--- OUTSIDE RECORDS SUMMARY | 2025-04-16 13:59 | XMS_ITS ---
Continuity of Care Document (CCD) Created on: April 16, 2025 Sagrario Alfonso External Reference #: [id number] : [id number] Sex: Female Author Organization [facility] Address [address] [facility] [address] [place], [place] Phone [phone] Social History Type Date Description Comments Sex Unknown Allergies and adverse reactions Active Allergies Criticality Reaction Severity Comments Date Shellfish-Derived Products Unable to assess criticality 03/08/2024 Dairy Unable to assess criticality 03/08/2024
== END 2025-04-16 13:43 | disposition home or self-care (01) ==
LOC: HO.HPS 13:25
PROVIDERS: PCP Nurse Practitioner Primary Care; Visit Provider Internal Medicine Pulmonary Disease
DX: G47.33 Obstructive sleep apnea (adult) (pediatric) (principal); Z91.09 Other allergy status, other than to drugs and biological substances
CPT/HCPCS: 99214

== ENCOUNTER → 2025-04-16 13:24 | Outpatient (BNVA) | payer MEDICARE, SELFPAY | PROVIDERS: PCP Nurse Practitioner Primary Care; Visit Provider Internal Medicine Pulmonary Disease | DX: G47.33 Obstructive sleep apnea (adult) (pediatric) (principal); Z91.09 Other allergy status, other than to drugs and biological substances | CPT/HCPCS: 99212 ==

== ENCOUNTER 2025-06-17 06:04 | Outpatient (REF) | payer MEDICARE, SELFPAY ==
--- NOTE | ~2025-06-17 | FL_ITS ---
EXAMINATION: FL GUIDANCE ONLY HISTORY: G89.4 - Chronic pain syndrome COMPARISON: None available. TECHNIQUE: Fluoroscopy time: 0.3 minutes. Cumulative Dose: 6.69 mGy. DAP: 0.116 mGym2 Images: 4. FINDINGS: Fluoroscopic spot films of the lumbar spine demonstrate a needle in place and intrathecal contrast material. FL/FL guidance in treatment room IMPRESSION: Fluoroscopy during procedure. Please see procedure report for additional information. Electronically signed by: Bakari Molina MD 06/17/2025 09:59 AM EDT
--- OUTSIDE RECORDS SUMMARY | 2025-06-17 06:06 | XMS_ITS | Encounter Summary ---
Author Organization [facility] Address [address] [place] [address] Phone Care Team Providers Care Back Winder Name Role Phone Barb Massey CNP Primary Care Provider + Julienne Barber DO Primary Care Provider [phone] Barb Massey LIQUID CHLORINE OPERATOR Unavailable Encounter Details Date Type Department Care Team (Late st Contact Info) Description 03/06/2025 Procedure Pass [facility] Radiology [address] [place] [address] Social History Tobacco Use Types Packs/Day Years Used Date Smoking Tobacco: Former Cigarettes 0 04/12/1964 - 04/12/1989 Smokeless Tobacco: Never Alcohol Use Standard Drinks/Week Comments Yes 2 (1 standard drink = 0.6 oz pur e alcohol) 2 month per month Child or Family Care Answer Date Record ed Do you have problems with on e of the following making it difficult for you to work, study, or receive health care? No 02/06/2025 Education Answer Date Recorded Are you interested in more education? Not on adalberto e 03/25/2023 Are you concerned about learning? Not on file 03/25/2023 No 03/25/2023 No 03/25/2023 Food Answer Date Recorded Within the past 6 months we worried whether our food would run out before we got money to buy more. Never True 03/05/2025 Within the past 6 months the food we bought just didn't last and we didn't have enough money to get more. Never True Residential Stability Answer Date Recor ded What is your housing situation today? I have maxime marinelli 03/05/2025 How many times have you move d in the past 12 months? Zero (I did not move) 03/05/2025 Paying for Meds Answer Date Recorded Do you have trouble paying for medicines? No 03/05/2025 Paying Utility Bills Answer Date Record ed Do you have trouble paying your heating or elect ricity bill? No 03/05/2025 Transportation Answer Date Recorded Has the lack of transportati on kept you from medical appointments or from getting medications? No 03/05/2025 Digital Access Answer Date Recorded No 03/05/2025 Yes 03/05/2025 Do you have reliable internet access at home? Ye s 03/05/2025 Do you have a device (e.g., phone, tablet, computer) with a working camera? Yes 03/05/2025 Intimate Partner Violence Answer Date R ecorded Are you denied basic needs s uch as food, clothing, or medical care? No 03/05/2025 In the past 12 months have y ou been in a relationship with a person who hurts, threatens, or tries to control you? No 03/05/2025 Are you denied basic needs s uch as food, clothing, or medical care? No 03/05/2025 In the past 12 months have y ou been in a relationship with a person who hurts, threatens, or tries to control you? No 03/05/2025 Comments No Sex and Gender Information Value Date Recorded Sex Assigned at Female 11/10/2021 6:21 AM EST Legal Sex Female 6:04 PM EST Gender Identity Female 11/10/2021 6:21 AM EST Sexual Orientation Straight 11/10/2021 6: 21 AM EST documented as of this encounter Plan of Treatment Upcoming Encounters Date Type Department Care Team (Late st Contact Info) Description 06/12/2025 Procedure Pass [facility], Ct Scan - [address] [address] 06/23/2025 11:30 AM EDT Office Visit [facility] [address] [place] [address] Julienne Barber DO [address] [address] 07/03/2025 9:00 AM EDT Appointment [facility], Ct Scan - [facility] [address] [place] [address] Sarah Colón MD [address] [place] [address] [email or web address] 12/09/2025 1:00 PM EST Office Visit [facility] [address] [place] [address] Scott Guido DO [address] [place] [address] documented as of this encounter Visit Diagnoses Not on filedocumented in this encounter Additional Health Concerns Infection Onset Date Last Indicated Resolved Time CoV-Risk 03/20/2025 03/20/2025 03/31/2025 1:21 AM EDT Assessment Noted Time PHQ-2 Depression Total Score: 2 12/11/19 24 4:39 PM EST documented as of this encounter Care Teams Back Winder Relationship Specialty Start Date End Date Barb Massey CNP [address] [place] [id number] PCP - General Family Medicine 03/10/23 03/23/25 Julienne Barber DO [address] [place] [id number] PCP - General Family Medicine 03/24/25 Barb Massey CNP [address] [place] [address], [address] [place] [address] [email or web address] PCP - LATEX FOAM WORKER/PA Co-Rig Superintendent Nurse Practitioner 03/24/25 documented as of this encounter Additional Source Comments The information contained in this document represents components of the legal health record. It is not the complete legal health record.[facility]
--- OUTSIDE RECORDS SUMMARY | 2025-06-17 06:06 | XMS_ITS | Continuity of Care Document ---
Author Organization [facility] Address [address] [facility] [address] [place], [place] Phone [phone] Social History Type Date Description Comments Sex Female Sex Unknown Allergies and adverse reactions Active Allergies Criticality Reaction Severity Comments Date Shellfish-Derived Products Unable to assess criticality 03/08/2024 Dairy Unable to assess criticality 03/08/2024
== END 2025-06-17 06:05 | disposition home or self-care (01) ==
LOC: CF 06:04
PROVIDERS: Visit Provider Anesthesiology
DX: M48.062 Spinal stenosis, lumbar region with neurogenic claudication (principal); G89.4 Chronic pain syndrome; M96.1 Postlaminectomy syndrome, not elsewhere classified
CPT/HCPCS: 62323; J2003; Q9967

== ENCOUNTER 2025-06-17 07:05 | Outpatient (AMB) | payer MEDICARE, SELFPAY ==
[2025-06-17 07:25] VITALS: BP 167/96; PULSE 68; RESP 18; O2SAT 98
--- NOTE | 2025-06-17 07:25 | A.OFFVIS_ITS ---
Vital Signs 06/17/25 07:25 Weight 190 lb BP 167/96 H Blood Pressure Location Lt brachial Position Sitting Respiration 18 Pulse 68 Pulse Source Pulse Oximeter Pulse Oximetry (%) 98 Oxygen Delivery Method Room Air Intake Visit Reasons: TRIAL OF ITDD WITH HYDROMORPHONE Web Applications Administrator Required: No Allergies lobster Allergy (Severe, Verified 06/17/25 07:26) Anaphylaxis PFSH Medical History Scoliosis Lumbar stenosis Osteoarthritis Post laminectomy syndrome Chronic pain syndrome Sleep apnea Surgical History History of knee replacement History of hysterectomy S/P placement of nerve stimulator History of back surgery Social History Are you a primary child care center assistant director to a significant other at home: No Do you presently have visiting nurse or other home services: No Patient Tobacco Use Status: Former Tobacco user Tobacco use type: Cigarette Years Smoked: quit 35 years ago. started at age 18, 1PPD Second Hand Smoke Exposure: No Physical Exam Vital Signs: Last Vital Signs Pulse 68 06/17/25 07:25 Resp 18 06/17/25 07:25 BP 167/96 H 06/17/25 07:25 Pulse Ox 98 06/17/25 07:25 Oxygen Delivery Method Room Air 06/17/25 07:25 Assessment & Plan Assessment & Plan (1) Post laminectomy syndrome: Code(s): M96.1 - Postlaminectomy syndrome, not elsewhere classified Category: Medical (2) Chronic pain syndrome: Code(s): G89.4 - Chronic pain syndrome Category: Medical (3) Lumbar stenosis with neurogenic claudication: Code(s): M48.062 - Spinal stenosis, lumbar region with neurogenic claudication Category: Medical Plan Intrathecal pain pump trial Dilaudid/hydromorphone. ?Informed consent was explained to the patient. All questions were explained and? answered.? The patient was taken inside the operating room where she was positioned prone on the operating table. Time-out was performed delineating correct site, side, the nature of the procedure, patient's allergy, . All operating room staff was participating in OR time-out procedure. ? ? The lower back was prepped with ChloraPrep and draped with sterile towels.? C- arm was brought over the operating field and sq picture of L2 and L3 vertebra were delineated on the screen.? Point of interest was delineated as an inter- laminar space at L2-L3 vertebras. The projection to the skin of the lamina of L3 vertebra on the right as close to spinous process as possible was injected with mixture of lidocaine 2% and ropivacaine 0.5% one-to-one using 25 gauge 1 in needle. After that 22 gauge pencil point needle was inserted through the skin wheal and advanced to the intrathecal space under intermittent anterior posterior and lateral views. When on the lateral view of the tip of the needle was visualized in the center of the spinal canal patient was instructed to cough, the bed was given reverse Trendelenburg positioned. We did not detect any CSF coming from the needle. 1 cc of Isovue M contrast was injected into the needle demonstrating myelogram in the AP and lateral views. After that injection of 60 micro g of preservative-free hydromorphone was injected into the intrathecal space. After that needle was withdrawn sterile Band-Aid was applied. Patient tolerated procedure well she was taken outside of the operating room to recovery room where she stayed for 45 minutes flat in supine position. She went home without immidiate side effects.? Orders: Orders FL guidance in treatment room Today G89.4 - Chronic pain syndrome Coding Level of Care Code Procedure Only Diagnoses Post laminectomy syndrome M96.1 Chronic pain syndrome G89.4 Lumbar stenosis with neurogenic claudication M48.062
== END 2025-06-17 08:50 | disposition home or self-care (01) ==
LOC: HO.PMCPRC 07:05
PROVIDERS: PCP Nurse Practitioner Primary Care; Visit Provider Anesthesiology
DX: M96.1 Postlaminectomy syndrome, not elsewhere classified (principal); G89.4 Chronic pain syndrome; M48.062 Spinal stenosis, lumbar region with neurogenic claudication
CPT/HCPCS: 62323

== ENCOUNTER 2025-06-25 11:24 | Outpatient (AMB) | payer MEDICARE, SELFPAY ==
[2025-06-25 11:26] VITALS: BP 149/80; PULSE 82; RESP 16; O2SAT 94; BMI 35.5
--- NOTE | 2025-06-25 11:26 | MHC.OFFVIS ---
Vital Signs 06/25/25 11:26 Height 5 ft 1 in Weight 188 lb BMI 35.5 BP 149/80 H Blood Pressure Location Rt brachial Position Sitting Respiration 16 Pulse 82 Pulse Source Pulse Oximeter Pulse Oximetry (%) 94 Oxygen Delivery Method Room Air Intake Visit Reasons: S/P TRIAL OF ITDD WITH HYDROMORPHONE Day Camp Unit Leader Required: No Accompanied by: Self / Same As Patient Allergies lobster Allergy (Severe, Verified 06/25/25 11:33) Anaphylaxis hydromorphone Allergy (Verified 06/25/25 12:15) Itching HPI Comments Details: The patient is a 79-year-old female presenting for evaluation following a pain pump trial with hydromorphone. The trial was conducted approximately a week ago, and hydromorphone was used as the analgesic agent. The patient reported significant pain relief but experienced severe pruritus as a side effect. The pruritus was managed initially with Narcan, which provided temporary relief. The patient had to use multiple doses of Narcan due to the recurrence of itching, and there were issues with obtaining the medication from the pharmacy. Despite the itching, the patient was able to engage in activities such as walking the dog and performing household tasks, indicating some level of functional improvement. She endorses 100% pain relief for at least 24 hours after the procedure. - Pain relief achieved with hydromorphone trial - Pruritus developed as a side effect, managed with Narcan - Pain returned after Narcan administration - Functional improvement noted with increased activity levels - Affect: Patient expressed frustration with pruritus but noted improved activity levels. - Analgesia: Hydromorphone provided significant pain relief; Narcan used for pruritus management. - Adverse Effects: Severe pruritus from hydromorphone, managed with Narcan. - Activities of Daily Living: Improved ability to perform daily activities such as walking the dog. - Aberrant Drug Related Behaviors: No aberrant behaviors reported. [facility] Medical History Scoliosis Lumbar stenosis Osteoarthritis Post laminectomy syndrome Chronic pain syndrome Sleep apnea Surgical History History of knee replacement History of hysterectomy S/P placement of nerve stimulator History of back surgery Social History Are you a primary career representative to a significant other at home: No Do you presently have visiting nurse or other home services: No Patient Tobacco Use Status: Former Tobacco user Tobacco use type: Cigarette Years Smoked: quit 35 years ago. started at age 18, 1PPD Second Hand Smoke Exposure: No Review of Systems Const Details: - Dermatological: Reports severe pruritus following hydromorphone administration. - Musculoskeletal: Reports improved mobility and activity levels post-trial. Physical Exam Exam Exam: General: awake, alert, oriented. Answers questions appropriately. Fully engaged in examination. Skin: warm, dry, intact HEENT: Normocephalic. Hearing intact. Cardiac: External chest normal in appearance. Respiratory: No cough, audible wheezing or stridor. Abdomen: without gross distension. MS: No obvious swelling or deformities. Neurological: Oriented to person, place, time and situation. Thought process intact. Ambulates with the use of cane, bent at the waist in a slight forward flexion Psychiatric: Appropriate mood and affect. Good judgment and insight. Vital Signs: Last Vital Signs Pulse 82 06/25/25 11:26 Resp 16 06/25/25 11:26 BP 149/80 H 06/25/25 11:26 Pulse Ox 94 06/25/25 11:26 Oxygen Delivery Method Room Air 06/25/25 11:26 BMI result Body Mass Index 35.5 Assessment & Plan Assessment & Plan (1) Post laminectomy syndrome: Code(s): M96.1 - Postlaminectomy syndrome, not elsewhere classified Category: Medical (2) Chronic pain syndrome: Code(s): G89.4 - Chronic pain syndrome Category: Medical (3) Lumbar stenosis with neurogenic claudication: Code(s): M48.062 - Spinal stenosis, lumbar region with neurogenic claudication Category: Medical Plan The plan involves conducting a new trial with a different analgesic to avoid the pruritus experienced with hydromorphone. The patient will be monitored for side effects and efficacy of the new medication. Patient will be scheduled for fluoroscopy guided diagnostic intrathecal drug delivery trial. Patient was informed and verbally consented to the use of an ambient scribe for clinic note documentation during this visit. Patient Instructions: - Monitor for any side effects with the new medication trial. - Report any adverse reactions immediately. - Follow up with the clinic as scheduled for further evaluation. Coding Level of Care Code Est Pt Level 3 (79392) Complex EM visit Add On G2211 Diagnoses Post laminectomy syndrome M96.1 Chronic pain syndrome G89.4 Lumbar stenosis with neurogenic claudication M48.062
--- OUTSIDE RECORDS SUMMARY | 2025-06-25 12:26 | XMS_ITS | Encounter Summary ---
Author Organization [facility] Address [address] [place] [address] Phone Care Team Providers Care Supervisor Matrix Name Role Phone Barb Massey CNP Primary Care Provider + Julienne Barber DO Primary Care Provider Barb Massey CREW BOAT OPERATOR Unavailable [phone] Encounter Details Date Type Department Care Team (Late st Contact Info) Description 03/06/2025 Procedure Pass [facility] Radiology [address] [place] [address] Social History Tobacco Use Types Packs/Day Years [...] st Contact Info) Description 06/12/2025 Procedure Pass [facility], Ct Scan - [address] [address] 07/03/2025 9:00 AM EDT Appointment [facility], Ct Scan - [facility] [address] [place] [address] Sarah Colón MD [address] [place] [address] [email or web address] 12/09/2025 1:00 PM EST Office Visit [facility] [address] [place] [address] Scott Guido DO [address] [place] [address] documented as of this encounter Visit Diagnoses Not on filedocumented in this encounter Additional Health Concerns Infection Onset Date Last Indicated Resolved Time CoV-Risk 03/20/2025 03/20/2025 03/31/2025 1:21 AM EDT Assessment Noted Time PHQ-2 Depression Total Score: 2 12/11/19 4:39 PM EST documented as of this encounter Care Teams Supervisor Matrix Relationship Specialty Start Date End Date Barb Massey CNP [address] [place] [address] PCP - General Family Medicine 03/10/23 03/23/25 Julienne Barber DO [address] [place] [address] PCP - General Family Medicine 03/24/25 Barb Massey CNP [address] [place] [address] PCP - LAST TURNER/PA Co-Engineering Production Worker Nurse Practitioner 03/24/25 documented as of this encounter Additional Source Comments The information contained in this document represents components of the legal health record. It is not the complete legal health record.[facility]
--- OUTSIDE RECORDS SUMMARY | 2025-06-25 12:26 | XMS_ITS | Continuity of Care Document ---
Author Organization [facility] Address [address] [address] [place], [place] Phone [phone] Social History Type Date Description Comments Sex Female Sex Unknown Allergies and adverse reactions Active Allergies Criticality Reaction Severity Comments Date Shellfish-Derived Products Unable to assess criticality 03/08/2024 Dairy Unable to assess criticality 03/08/2024
== END 2025-06-25 11:52 | disposition home or self-care (01) ==
LOC: HO.PMC 11:25
PROVIDERS: PCP Nurse Practitioner Primary Care; Visit Provider Registered Nurse Emergency
DX: M96.1 Postlaminectomy syndrome, not elsewhere classified (principal); G89.4 Chronic pain syndrome; M48.062 Spinal stenosis, lumbar region with neurogenic claudication
CPT/HCPCS: 99213; G2211

== ENCOUNTER → 2025-06-25 11:24 | Outpatient (BNVA) | payer MEDICARE, SELFPAY | PROVIDERS: PCP Nurse Practitioner Primary Care; Visit Provider Registered Nurse Emergency | DX: M96.1 Postlaminectomy syndrome, not elsewhere classified (principal); M48.062 Spinal stenosis, lumbar region with neurogenic claudication; G89.4 Chronic pain syndrome | CPT/HCPCS: 99212 ==

== ENCOUNTER 2025-08-26 07:35 | Outpatient (REF) | payer MEDICARE, SELFPAY ==
--- OUTSIDE RECORDS SUMMARY | 2025-08-21 10:29 | XMS_ITS | Encounter Summary ---
Author Organization [facility] Address [address] [place] [address] Phone Care Team Providers Care Cat Scanner Operator Name Role Phone Julienne Barber DO Primary Care Provider [phone] Barb Massey PATTERN DEVELOPER Unavailable [phone] Reason for Referral * MRI/CAT Scan - Closed Specialty Diagnoses / Procedures Referred By Diana t Referred To Contact Radiology Diagnoses Normal pressure hydrocephalus Procedures CT Head Sarah Colón MD Phone: tel: fax: mailto:[email or web address] Referral ID Status Reason Start Date Expiration Date Visits Re quested Visits Authorized [id number] Closed 07/14/2025 1 1 Reason for Visit * MRI/CAT Scan - Closed Specialty Diagnoses / Procedures Referred By Diana t Referred To Contact Radiology Diagnoses Normal pressure hydrocephalus Procedures CT Head Sarah Colón MD Phone: tel: fax: mailto:[email or web address] Referral ID Status Reason Start Date Expiration Date Visits Re quested Visits Authorized [id number] Closed 07/14/2025 1 1 Encounter Details Date Type Department Care Team (Late st Contact Info) Description 08/21/2025 10:29 AM EDT - 08/21/2025 11:59 PM EDT Hospital Encounter [facility], [place] [address] [place] [address] Sarah Colón MD [address] [place] [address] [email or web address] Discharge Disposition: Home or Self Care Social History Tobacco Use Types Packs/Day Years [...] your housing situation today? I have maxime sing 03/05/2025 How many times have you move [...] have reliable internet access at home? Ye fernanda 03/05/2025 Do you have a device (e.g., phone, tablet, computer) with a working camera? Yes 03/05/2025 Intimate Partner Violence Answer Date R ecorded Are you denied basic needs s uch as food, clothing, or medical care? No 08/21/2025 In the past 12 months have y ou been in a relationship with a person who hurts, threatens, or tries to control you? No 08/21/2025 Are you denied basic needs s uch as food, clothing, or medical care? No 08/21/2025 In the past 12 months have y ou been in a relationship with a person who hurts, threatens, or tries to control you? No 08/21/2025 Comments No Sex and Gender Information Value Date Recorded Sex Assigned at Female 11/10/2021 6:21 AM EST Legal Sex Female 6:04 PM EST Gender Identity Female 11/10/2021 6:21 AM EST Sexual Orientation Straight 11/10/2021 6: 21 AM EST documented as of this encounter Medications at Time of Discharge denosumab (PROLIA) 60 mg/mL Syrg subcutaneous syringe Inject 60 mg under the skin once. estradioL (ESTRACE) 0.01 % (0.1 mg/gram) vaginal cream Place 1 g vaginally 2 (two) times a week. 01/09/2024 sertraline (ZOLOFT) 100 MG tablet TAKE 1 TABLET(100 MG) BY MOUTH DAILY 30 tablet 11 07/30/2025 documented as of this encounter Plan of Treatment Upcoming Encounters Date Type Department Care Team (Late st Contact Info) Description 08/21/2025 Procedure Pass [address] [address] 09/10/2025 7:15 PM EDT Appointment [address] [address] Sarah Colón MD [address] [place] [id number] [email or web address] 09/11/2025 9:30 AM EDT [facility]icine [facility] Department of Neurosurgery [address] [place] [address] Ashleigh Hagen NP [address] [place] [address] [email or web address] 12/09/2025 1:00 PM EST Office Visit [facility] [address] [place] [address] Scott Guido DO 22 [place] [address] documented as of this encounter Procedures Procedure Name Priority Date/Time Associated Diagnosis Comments CT HEAD WITHOUT CONTRAST Routine 08/21/2025 10:41 AM EDT Normal pressure hydrocephalus documented in this encounter Results * CT HEAD WITHOUT CONTRAST (08/21/2025 10:41 AM EDT) Anatomical Region Laterality Modality Head Computed Tomogra phy 08/21/2025 11:2 3 AM EDT Impressions 08/21/2025 11:27 AM EDT 1. Ventricles appear unchanged from July 03, 2025. Narrative 08/21/2025 11:[address] HEAD WITHOUT CONTRAST Referring clinician's provided indication for this examination in Epic: * Hydrocephalus TECHNIQUE: Multidetector-row CT of the head was performed without intravenous contrast using tailored dose modulation techniques. Images were reconstructed in the axial, coronal, and sagittal planes. COMPARISON: CT head July 03, 2025 FINDINGS: Brain Parenchyma: No midline shift, mass effect, parenchymal hemorrhage, or evidence of acute territorial infarct. Ventricular System and Extra-Axial Spaces: The tip of the right parietal approach ventriculostomy catheter is within the frontal horn right lateral ventricle with indentation of the septum pellucidum similar the prior study. The ventricles appear unchanged. No midline shift. No extra-axial fluid collection. The basilar cisterns are patent. Osseous and Extracranial Structures: Normal. No significant paranasal sinus disease. No orbital abnormality. Procedure Note Reynaldo Brice DO - 08/21/2025 CT HEAD WITHOUT CONTRAST Referring clinician's provided indication for this examination in Epic: *Hydrocephalus TECHNIQUE: Multidetector-row CT of the head was performed withoutintravenous contrast using tailored dose modulation techniques. Imageswere reconstructed in the axial, coronal, and sagittal planes. COMPARISON: CT head July 03, 2025 FINDINGS: Brain Parenchyma: No midline shift, mass effect, parenchymal hemorrhage,or evidence of acute territorial infarct. Ventricular System and Extra-Axial Spaces: The tip of the right parietalapproach ventriculostomy catheter is within the frontal horn right lateralventricle with indentation of the septum pellucidum similar the priorstudy. The ventricles appear unchanged. No midline shift. No extra-axialfluid collection. The basilar cisterns are patent. Osseous and Extracranial Structures: Normal. No significant paranasalsinus disease. No orbital abnormality. IMPRESSION: 1. Ventricles appear unchanged from July 03, 2025. Sarah Colón MD IMG CT HEAD/NECK Final Resu lt documented in this encounter Visit Diagnoses Diagnosis Normal pressure hydrocephalus Idiopathic normal pressure hydrocephalus (INPH) documented in this encounter Additional Health Concerns Assessment Noted Time PHQ-2 Depression Total Score: 2 08/21/20 11:16 AM EDT documented as of this encounter Care Teams Cat Scanner Operator Relationship Specialty Start Date End Date Julienne Barber DO [address] [place] [id number] PCP - General Family Medicine 03/24/25 Barb Massey CNP [address] [facility] [address] [place] [address] PCP - ACCOUNT RELATIONSHIP MANAGER/PA Co-Information Clerk Cashier Nurse Practitioner 03/24/25 documented as of this encounter Additional Source Comments The information contained in this document represents components of the legal health record. It is not the complete legal health record.[facility]
--- OUTSIDE RECORDS SUMMARY | 2025-08-21 11:00 | XMS_ITS | Encounter Summary ---
Author Organization [facility] Address [address] [facility] [address] [place] [address] Phone Care Team Providers Care Tractor Engine Assembler Name Role Phone NormaJulienne edmonds Kelly JOHNS Primary Care Provider [phone] Barb Massey SSIS ARCHITECT Unavailable Reason for Visit * Reason Comments Follow Up Visit [facility], VPS, current sh unt valve setting 190mm H20 Encounter Details Date Type Department Care Team (Latest Contact Info) Description 08/21/2025 11:00 AM EDT Office Visit [facility] Department of Neurosurgery [address] [place] [address] Ashleigh Hagen, ALHAJI [address] [place] [address] [email or web address] Normal pressure hydrocephalus (Primary Dx); Presence of programmable ventriculoperitoneal shunt Social History Tobacco Use Types Packs/Day Years [...] AM EST documented as of this encounter Last Filed Vital Signs Vital Sign Reading Time Taken Comments Blood Pressure 136/86 08/21/2025 11:15 AM EDT Pulse 68 08/21/2025 11:15 AM EDT Temperature 36.4 C (97.5 F) 08/21/2025 11:15 AM EDT Respiratory Rate - - Oxygen Saturation 96% 08/21/2025 11: 15 AM EDT Inhaled Oxygen Concentration - - Weight 84.8 kg (187 lb) 08/21/2025 11:1 5 AM EDT pt refused to be weighed but wanted to self report her weight from yesterday Height 154.9 cm (5' 1 ) 08/21/2025 11:1 5 AM EDT Body Mass Index 35.33 08/21/2025 11:15 AM EDT documented in this encounter Progress Notes * Ashleigh Hagen, PARTS COUNTERMAN - 08/21/2025 11:00 AM EDT Images from the original note were not included. Sagrario Alfonso Dear Julienne Barber DO, We had the pleasure of seeing Sagrario Alfonso a 79 y.o. pleasant female who presents to our neurosurgery clinic following the image-guided placement of a right parietal DIGITAL PRODUCTION OPERATOR shunt on 03/05/2025. HPI: Sagrario Alfonso is a pleasant 79 y.o. right-handed female. She is accompanied by her daughter. She reports having back pain and bilateral sciatica for many years. She had a lumbar spine surgery approximately 20 years ago. Surgeries, PT and many intervention did not help her symptoms according to the patient. She states that the back pain is worst than the leg pain. She cannot walk for long, and her symptoms (back pain and leg pain) are improved leaning forward. Approximately one month ago, she underwent surgery for the placement of an epidural stimulator to manage pain. Unfortunately, the surgery failed and they were not able to install the device. Since the past year, she developed progress amando balance and gait impairment. She had few falls (no head impact). She reports urinary urgency for the past 5 years, with a significant decline with incontinence in the past year. She now wears pads day and night. She reports no fecal incontinence. The patient and her daughter also report cognitive decline in the past year. She does not report visual change, headaches or nausea. She had an MRI in the context of dizziness (light-headedness) and right ear hearing loss, on which ventriculomegalywas identified. Sagrario Alfonso returns to our clinic today with her daughter for follow-up after her navigated shunt placement back in February 2025. She had her shunt adjusted in May for regression of her symptoms from 200 to 190. Following the adjustment, she had some immediate improvement in her symptoms but hasnow taken a step back. She reports that she leans forward when she walks. She has not had any fallssince we last spoke over the phone in June. She does have ongoing urgency with occasional dribbles and has to wear a pad. She reports that this is better than where she used to before overall as far as bladder function. Her short-term memory is also not as great as he used to be. She is forgetfulof things like leaving wallet behind in hotel. She has had physical therapy but has not seen any significant improvement in her symptoms. She denies any headaches, nausea or vomiting. She is currently being evaluated for a fentanyl pump for ongoing chronic back pain. She thinks this is contributingto her difficulty with ambulating and she leans to the right when she walks. She reports that she had a hydromorphone pump trial and had remarkable improvement in her ability to stand straight and walk. She however had a reaction to the medication and is being transition to a fentanyl pump trial. She had a CT done today as part of this visit. [facility] Past Medical History: Diagnosis Date Arthritis both knees Back pain Dental crown present Depressive disorder Easy bruising Knee pain Nerve pain down both legs Normal pressure hydrocephalus CATHLEEN (obstructive sleep apnea) CPAP Urinary urgency Uterine cancer Wears glasses Osteoporosis S/p laparoscopic hysterectomy MEDICATIONS Current Outpatient Medications Ordered in [facility] Medication Sig denosumab (PROLIA) 60 mg/mL Syrg subcutaneous syringe Inject 60 mg under the skin once. estradioL (ESTRACE) 0.01 % (0.1 mg/gram) vaginal cream Place 1 g vaginally 2 (two) times a week. sertraline (ZOLOFT) 100 MG tablet TAKE 1 TABLET(100 MG) BY MOUTH DAILY ALLERGIES: Shellfish containing products, Alendronate, Gluten, Gluten protein, Hydromorphone, Lobster, Milk containing products (dairy), Other, Oxycodone, and Soy protein SOCIAL HISTORY: reports that she quit smoking about 36 years ago. Her smoking use included cigarettes. She started smoking about 61 years ago. She has never used smokeless tobacco. She reports current alcohol use ofabout 2.0 standard drinks of alcohol per week. She reports current drug use. Drug: Marijuana. FAMILY HISTORY: family history includes Allergies in her sister; Aneurysm (age of onset: 58) in her father; COPD inher sister; Pancreatic cancer in her son; Sudden in her son. PHYSICAL EXAM: Ht 154.9 cm (5' 1 ) Wt 84.8 kg (187 lb) Comment: pt refused to be weighed but wanted to self report her weight from yesterday BMI 35.33 kg/m?? Alert and oriented EOM normal VII normal No pronator drift Muscle strengths normal and symmetrical Reflexes low in bilateral legs, symmetrical, no clonus Walking: leaning on the side, small steps, slightly decreased arm swing Incisions are healing well with no sign of complication On her gait exam, she requires 2 hands to get up from a sitting position and has a bit of inertia with starting ambulation. Her meliton is good and she has good armswing on the right side compared tothe left. She preferentially leans a bit to the right side. She takes multiple steps to initiate a turn and appears to lose her balance at times. This is overall not dramatically changed from when we last physically examine her. IMAGING: CT 08/22/2025 07/03/2025 Impression 1. Ventricles appear unchanged from July 03, [address]. [address] HEAD WITHOUT CONTRAST Referring clinician's provided indication for this examination in [facility]: * Hydrocephalus TECHNIQUE: Multidetector-row CT of the [...] lateral ventricle with indentation of the septum pellucidumsimilar the prior study. The ventricles appear unchanged. No midline shift. No extra-axial fluid collection. The basilar cisterns are patent. Osseous and Extracranial Structures: Normal. No significant paranasal sinus disease. No orbital abnormality. Signed Time Phone Pager Reynaldo Brice DO 08/21/2025 11:27 [id number] SHUNT HISTORY: Image guided VPS with lap assist on 03/05/2025 OR OP 30 cm H2O, initial shunt setting 200 mm H2O SHUNT VALVE SETTINGS: 03/05/2025 200 mm H20 06/12/2025 190 mm H2O 08/21/2025 180 mm H2O Reprogramming of shunt Given her regression, we reprogrammed her shunt to 180 instead of 190. There was good acoustic return with the ict programmer and she tolerated the procedure well. ? ASSESSMENT & PLAN: We had the pleasure of seeing Sagrario Alfonso a 79 y.o. pleasant female who presents to our neurosurgery clinic following the image-guided placement of a right parietal DIGITAL PRODUCTION OPERATOR shunt on 03/05/2025. She reports regression in her gait, cognition as well as with her incontinence after her initial improvements in those domains with the shunt. Her opening pressure intraoperatively was 30 with the valve set to 200. Her CT scan shows stable ventricular confirmation without any obvious extra-axial collections. The catheter appears to be in the correct ventricular position. Given her regression, we reprogrammed her shunt to 180 from 190 to see if that will mitigate some of her symptoms. We will plan to obtain a CT head without contrast in about 3 to 4 weeks preferably at [facility] in [facility] where she lives. We would then follow-up with a virtual/telephone visit after reviewing that CT to rule out over drainage headaches. She had excellent questions that were all answered to the best of our ability. Thank you very much for allowing us to be part of her care. oJse Monteiro M.D. Image-guided neurosurgery fellow [facility] Department of Neurosurgery [address] [place] [id number] Time Spent: Total time spent on August 21, 2025 for this visit in [id number] and non sjrj-du-adem time reviewing, obtaining, and documenting clinical information, coordinating with the care teamand other specialists, and counseling the patient: 30 minutes. It is my pleasure to see Sagrario Alfonso for neurosurgical follow-up care. Please do not hesitate to contact me if I can be of further assistance. Ashleigh Hagen NP MSN Adult Hydrocephalus Program documented in this encounter Plan of Treatment Upcoming Encounters Date Type Department Care Team (Late st Contact Info) Description 08/21/2025 Procedure Pass [address] [address] 09/10/2025 7:15 PM EDT Appointment [address] [address] Sarah Colón MD [address] [place] [address] [email or web address] 09/11/2025 9:30 AM EDT Telemedicine [facility] Department of Neurosurgery [address] [place] [address] Ashleigh Hagen NP [address] [place] [address] [email or web address] 12/09/2025 1:00 PM EST Office Visit [facility] [address] [place] [address] Soctt Guido DO [address] [place] [address] [email or web address] documented as of this encounter Visit Diagnoses Diagnosis Normal pressure hydrocephalus- Primary Idiopathic normal pressure hydrocephalus (INPH) Presence of programmable ventriculoperitoneal shunt documented in this encounter Additional Health Concerns Assessment Noted Time PHQ-2 Depression Total Score: 2 08/21/20 11:16 AM EDT documented as of this encounter Care Teams Tractor Engine Assembler Relationship Specialty Start Date End Date Julienne Barber DO [address] [place] [address] [address] [place] [address] PCP - General Family Medicine 03/24/25 Barb Massey CNP [address] [place] [address] [address] [place] [address] [email or web address] PCP - PARTS COUNTERMAN/PA Co-Cosmetic Sales Nurse Practitioner 03/24/25 documented as of this encounter Additional Source Comments The information contained in this document represents components of the legal health record. It is not the complete legal health record.[facility]
--- NOTE | ~2025-08-26 | FL_ITS ---
EXAMINATION: FL GUIDANCE ONLY HISTORY: G89.4 - Chronic pain syndrome COMPARISON: None available. TECHNIQUE: Fluoroscopy time: 0.1 minute. Cumulative Dose: 4.48 mGy. DAP: 0.0748 mGym2 Images: 2. FINDINGS: Fluoroscopic spot films of the lumbar spine demonstrate a needle in place at approximately the L3-4 level. FL/FL guidance in treatment room IMPRESSION: Fluoroscopy during procedure. Please see procedure report for additional information. Electronically signed by: Bakari Molina MD 08/26/2025 12:32 PM EDT
--- OUTSIDE RECORDS SUMMARY | 2025-08-26 07:41 | XMS_ITS | Encounter Summary ---
Author Organization [facility] Address [address] [place] [address] Phone Care Team Providers Care Rug Receiving Clerk Name Role Phone Barb Massey CNP Primary Care Provider + Julienne Barber DO Primary Care Provider Barb Massey OFFICE SECRETARY Unavailable [phone] Encounter Details Date Type Department Care Team (Late st Contact Info) Description 02/14/2025 Procedure Pass [facility] CT Imaging, [place] [address] [place] [address] Social History Tobacco Use Types Packs/Day Years [...] got money to buy more. Never True 12/11/2023 Within the past 6 months the food we bought just didn't last and we didn't have enough money to get more. Never True Residential Stability Answer Date Recor ded What is your housing situation today? I have maxime marinelli 02/06/2025 How many times have you move d in the past 12 months? Zero (I did not move) 02/06/2025 Paying for Meds Answer Date Recorded Do you have trouble paying for medicines? No 02/06/2025 Paying Utility Bills Answer Date Record ed Do you have trouble paying your heating or elect ricity bill? No 02/06/2025 Transportation Answer Date Recorded Has the lack of transportati on kept you from medical appointments or from getting medications? No 02/06/2025 Digital Access Answer Date Recorded No 02/06/2025 Yes 02/06/2025 Do you have reliable internet access at home? Ye s 02/06/2025 Do you have a device (e.g., phone, tablet, computer) with a working camera? Yes 02/06/2025 Intimate Partner Violence Answer Date R ecorded Are you denied basic needs s uch as food, clothing, or medical care? No 02/13/2025 In the past 12 months have y ou been in a relationship with a person who hurts, threatens, or tries to control you? No 02/13/2025 Are you denied basic needs s uch as food, clothing, or medical care? No 02/13/2025 In the past 12 months have y ou been in a relationship with a person who hurts, threatens, or tries to control you? No 02/13/2025 Comments No Sex and Gender Information Value Date Recorded Sex Assigned at Female 11/10/2021 6:21 AM EST Legal Sex Female 6:04 PM EST Gender Identity Female 11/10/2021 6:21 AM EST Sexual Orientation Straight 11/10/2021 6: 21 AM EST documented as of this encounter Plan of Treatment Upcoming Encounters Date Type Department Care Team (Late st Contact Info) Description 08/21/2025 Procedure Pass [facility], Ct Scan - [address] [address] 09/10/2025 7:15 PM EDT Appointment [facility], Ct Scan - [facility] [address] [place] [address] Sarah Colón MD 60 [place] [address] [email or web address] 09/11/2025 9:30 AM EDT Telemedicine [facility] Department of Neurosurgery 60 [place] [address] Ashleigh Hagen NP 60 [place] [address] [email or web address] 12/09/2025 1:00 PM EST Office Visit [facility] 22 [place] [address] Scott Guido DO 22 [place] [address] documented as of this encounter Visit Diagnoses Not on filedocumented in this encounter Additional Health Concerns Infection Onset Date Last Indicated Resolved Time CoV-Risk 03/20/2025 03/20/2025 03/31/2025 1:21 AM EDT Assessment Noted Time PHQ-2 Depression Total Score: 2 12/11/19 4:39 PM EST documented as of this encounter Care Teams Rug Receiving Clerk Relationship Specialty Start Date End Date Barb Massey CNP [address] [place] [address] 7 [place] [address] PCP - General Family Medicine 03/10/23 03/23/25 Julienne Barber DO [address] [place] [address] 7 [place] [address] PCP - General Family Medicine 03/24/25 Barb Massey CNP [address] [place] [address], [address] [place] [address] [email or web address] PCP - ADJUSTER LEADER/PA Co-Hand Welt Butter Nurse Practitioner 03/24/25 documented as of this encounter Additional Source Comments The information contained in this document represents components of the legal health record. It is not the complete legal health record.[facility]
--- OUTSIDE RECORDS SUMMARY | 2025-08-26 07:41 | XMS_ITS | Encounter Summary ---
Author Organization [facility] Address [address] [place] [address] Phone Care Team Providers Care Windows Admin Name Role Phone Barb Massey CNP Primary Care Provider + Julienne Barber DO Primary Care Provider [phone] Barb Massey DRAFTER GEOLOGICAL Unavailable Encounter Details Date Type Department Care Team (Late st Contact Info) Description 03/06/[address] [facility]'s Radiology 75 [place] [address] Social History Tobacco Use Types Packs/Day Years [...] st Contact Info) Description 08/21/2025 Procedure Pass [facility], Ct Scan - [address] [address] 09/10/2025 7:15 PM EDT Appointment [facility], Ct Scan - [facility] [address] [place] [address] Sarah Colón MD 60 [place] [address] [email or web address] 09/11/2025 9:30 AM EDT Telemedicine [facility] Department of Neurosurgery 60 [place] [address] Ashleigh Hagen NP 60 [place] [address] [email or web address] 12/09/2025 1:00 PM EST Office Visit [facility] 22 [place] [address] Scott Guido DO 22 [place] [address] documented as of this encounter Visit Diagnoses Not on filedocumented in this encounter Additional Health Concerns Infection Onset Date Last Indicated Resolved Time CoV-Risk 03/20/2025 03/20/2025 03/31/2025 1:21 AM EDT Assessment Noted Time PHQ-2 Depression Total Score: 2 12/11/19 24 4:39 PM EST documented as of this encounter Care Teams Windows Admin Relationship Specialty Start Date End Date Barb Massey CNP [address] [place] [address] 7 [place] [address] PCP - General Family Medicine 03/10/23 03/23/25 Julienne Barber DO [address] [place] [address] 7 [place] [address] PCP - General Family Medicine 03/24/25 Barb Massey CNP [address] [place] [address], [address] [place] [address] [email or web address] PCP - PALLIATIVE CARE SPECIALIST/PA Co-Client Service Coordinator Nurse Practitioner 03/24/25 documented as of this encounter Additional Source Comments The information contained in this document represents components of the legal health record. It is not the complete legal health record.[facility]
--- OUTSIDE RECORDS SUMMARY | 2025-08-26 07:41 | XMS_ITS | Encounter Summary ---
Author Organization [facility] Address [address] [place] [address] Phone Care Team Providers Care Nightclub Manager Name Role Phone Aakash Kothari MD Primary Care Provider Ekaterina Ary Dumont MD Primary Care Provider [phone] Barb Massey HEAD BANQUET WAITRESS Primary Care Provider + Julienne Barber DO Primary Care Provider [phone] Barb Massey HEAD BANQUET WAITRESS Unavailable Encounter Details Date Type Department Care Team (Late st Contact Info) Description 09/12/2019 Transcribe Orders [facility] [address] [place] [address] Aakash Kothari MD Social History Tobacco Use Types Packs/Day Years Used Date Smoking Tobacco: Former Cigarettes Q uit: 04/12/1989 Smokeless Tobacco: Never Comments Unknown Sex and Gender Information Value Date Recorded Sex Assigned at Female 11/10/2021 6:21 AM EST Legal Sex Female 6:04 PM EST Gender Identity Female 11/10/2021 6:21 AM EST Sexual Orientation Straight 11/10/2021 6: 21 AM EST documented as of this encounter Plan of Treatment Upcoming Encounters Date Type Department Care Team (Late st Contact Info) Description 08/21/2025 Procedure Pass [facility], Ct Scan - [address] [address] 09/10/2025 7:15 PM EDT Appointment [facility] Ct Scan [address] [address] Sarah Colón MD 60 [place] [address] [email or web address] 09/11/2025 9:[address] [facility] Department of Neurosurgery 60 [place] [address] Ashleigh Hagen NP 60 [place] [address] [email or web address] 12/09/2025 1:00 PM EST Office Visit [facility] 22 [place] [address] Scott Guido DO 22 [place] [address] [email or web address] documented as of this encounter Visit Diagnoses Not on filedocumented in this encounter Additional Health Concerns Infection Onset Date Last Indicated Resolved Time CoV-Risk 01/18/2024 01/18/2024 01/29/2024 1:22 AM EST CoV-Risk 03/20/2025 03/20/2025 03/31/2025 1:21 AM EDT documented as of this encounter Care Teams Nightclub Manager Relationship Specialty Start Date End Date Aakash Kothari MD PCP - General Internal Medicine 05/17/19 07/21/21 Ary Moralez MD [email or web address] PCP - General Family Medicine 07/22/21 03/09/23 Barb Massey CNP [address] [place] [address], [address] [place] [address] [email or web address] PCP - General Family Medicine 03/10/23 03/23/25 Julienne Barber DO [address] [place] [address], [address] [place] [address] PCP - General Family Medicine 03/24/25 Barb Massey CNP [address] [place] [address], [address] [place] [address] [email or web address] PCP - PRODUCT DELIVERY SPECIALIST/PA Co-Manager Market Intelligence Nurse Practitioner 03/24/25 documented as of this encounter Additional Source Comments The information contained in this document represents components of the legal health record. It is not the complete legal health record.[facility]
--- OUTSIDE RECORDS SUMMARY | 2025-08-26 07:41 | XMS_ITS | Encounter Summary ---
Author Organization [facility] Address [address] [place] [address] Phone Care Team Providers Care Ic Design Manager Name Role Phone Aakash Kothari MD Primary Care Provider Ekaterina Ary Dumont MD Primary Care Provider [phone] Barb Massey CNP Primary Care Provider + Julienne Barber DO Primary Care Provider [phone] Barb Massey COPRA PROCESSOR Unavailable Encounter Details Date Type Department Care Team (Late st Contact Info) Description 10/07/2019 Procedure Pass [place] Admitting Dept [facility] [address] [place] [address] Social History Tobacco Use Types Packs/Day Years Used Date Smoking Tobacco: Former Cigarettes 0 04/12/1964 - 04/12/1989 Smokeless Tobacco: Never Alcohol Use Standard Drinks/Week Comments Yes 2 (1 standard drink = 0.6 oz pur e alcohol) 2 month per month Comments Unknown Sex and Gender Information Value Date Recorded Sex Assigned at Female 11/10/2021 6:21 AM EST Legal Sex Female 6:04 PM EST Gender Identity Female 11/10/2021 6:21 AM EST Sexual Orientation Straight 11/10/2021 6: 21 AM EST documented as of this encounter Plan of Treatment Upcoming Encounters Date Type Department Care Team (Late st Contact Info) Description 08/21/2025 Procedure Pass [facility], Ct Scan [address] [address] 09/10/2025 7:15 PM EDT Appointment [address] [address] Sarah Colón MD 60 [place] [address] [email or web address] 09/11/2025 9:30 AM EDT Telemedicine [facility] Department of Neurosurgery 60 [place] [address] Ashleigh Hagen NP 60 [place] [address] [email or web address] 12/09/2025 1:00 PM EST Office Visit [facility] [address] [place] [address] Scott Guido DO 22 [place] [address] [email or web address] documented as of this encounter Visit Diagnoses Not on filedocumented in this encounter Additional Health Concerns Infection Onset Date Last Indicated Resolved Time CoV-Risk 01/18/2024 01/18/2024 01/29/2024 1:22 AM EST CoV-Risk 03/20/2025 03/20/2025 03/31/2025 1:21 AM EDT documented as of this encounter Care Teams Ic Design Manager Relationship Specialty Start Date End Date Aakash Kothari MD PCP - General Internal Medicine 05/17/19 07/21/21 Ary Moralez MD [email or web address] PCP - General Family Medicine 07/22/21 03/09/23 Barb Massey, COPRA PROCESSOR [address] [place] [address], [address] [place] [address] [email or web address] PCP - General Family Medicine 03/10/23 03/23/25 Julienne Barber DO [address] [place] [address], [facility] 7 [place] [address] [email or web address] PCP - General Family Medicine 03/24/25 Barb Massey CNP [address] [place] [address], [address] [place] [address] [email or web address] PCP - AUTOMOBILE DEALER/PA Co-Physical Damage Appraiser Nurse Practitioner 03/24/25 documented as of this encounter Additional Source Comments The information contained in this document represents components of the legal health record. It is not the complete legal health record.[facility]
--- OUTSIDE RECORDS SUMMARY | 2025-08-26 07:41 | XMS_ITS | Encounter Summary ---
Author Organization [facility] Address [address] [place] [address] Phone Care Team Providers Care Mushroom Laborer Name Role Phone Barb Massey CNP Primary Care Provider + Julienne Barber DO Primary Care Provider Barb Massey DIRECTOR CREDIT RISK Unavailable [phone] Encounter Details Date Type Department Care Team (Late st Contact Info) Description 03/05/2025 Procedure Pass [facility] Periop 75 [place] [address] Social History Tobacco Use Types Packs/Day Years [...] AM EST documented as of this encounter Functional Status * Calculated C-SSRS Risk Score (Lifetime/Recent) Answer Date of Assessment Author No Risk Indicated 03/05/2025 4:12 PM EDT Domenica Newman RN * [place] Suicide Severity Rating Scale (Screener/Recent Self-Report) Question Answer Date of Assessment Author 1. Wish to be (Past 1 Month) No 03/05/2025 4:12 PM EDT Debbie Cobb, RN 2. Non-Specific Active Suici varsha Thoughts (Past 1 Month) No 03/05/2025 4:12 PM EDT Domenica Cobb, RN 6. Suicidal Behavior (Lifetime) No 4:12 PM EDT Domenica Cobb, RN documented as of this encounter Plan of Treatment Upcoming Encounters Date Type Department Care Team (Late st Contact Info) Description 08/21/2025 Procedure Pass [address] [address] 09/10/2025 7:15 PM EDT Appointment [address] [address] Sarah Colón MD 60 [place] [address] [email or web address] 09/11/2025 9:30 AM EDT Telemedicine [facility] Department of Neurosurgery 60 [place] [address] Ashleigh Hagen NP 60 [place] [address] [email or web address] 12/09/2025 1:00 PM EST Office Visit [facility] 22 [place] [address] Scott Guido DO 22 [place] [address] documented as of this encounter Visit Diagnoses Not on filedocumented in this encounter Additional Health Concerns Infection Onset Date Last Indicated Resolved Time CoV-Risk 03/20/2025 03/20/2025 03/31/2025 1:21 AM EDT Assessment Noted Time PHQ-2 Depression Total Score: 2 12/11/19 4:39 PM EST documented as of this encounter Care Teams Mushroom Laborer Relationship Specialty Start Date End Date Hyden, Kaileen Arroyo, DIRECTOR CREDIT RISK [address], [address] [place] [address] [email or web address] PCP - General Family Medicine 03/10/23 03/23/25 Julienne Barber DO [address] [place] [address], [facility] 7 [place] [address] [email or web address] PCP - General Family Medicine 03/24/25 Barb Massey CNP [address] [place] [address], [facility] 7 [place] [address] [email or web address] PCP - BUILDING PERFORMANCE CONSULTANT/PA Co-Industrial Gas Production Operator Nurse Practitioner 03/24/25 documented as of this encounter Additional Source Comments The information contained in this document represents components of the legal health record. It is not the complete legal health record.[facility]
--- OUTSIDE RECORDS SUMMARY | 2025-08-26 07:41 | XMS_ITS | Encounter Summary ---
Author Organization [facility] Address [address] [place] [address] Phone Care Team Providers Care Geotechnical Operating Engineer Name Role Phone Barb Massey CNP Primary Care Provider + Julienne Barber DO Primary Care Provider Barb Massey TICKET ATTENDANT Unavailable Encounter Details Date Type Department Care Team (Late st Contact Info) Description 03/05/2025 Procedure Pass [facility]'s Radiology 75 [place] [address] Social History Tobacco Use Types Packs/Day Years [...] 4:12 PM EDT Domenica Newman RN * [place] Suicide Severity Rating Scale (Screener/Recent Self-Report) Question [...] st Contact Info) Description 08/21/2025 Procedure Pass [facility], [address] [address] 09/10/2025 7:15 PM EDT Appointment [address] [address] Sarah Colón MD 60 [place] [address] [email or web address] 09/11/2025 9:30 AM EDT Telemedicine [facility] Department of Neurosurgery 60 [place] [address] Ashleigh Hagen NP 60 [place] [address] [email or web address] 12/09/2025 1:00 PM EST Office Visit [facility] 22 [place] [address] Scott Guido DO [address] [place] [place] [address] documented as of this encounter Visit Diagnoses Not on filedocumented in this encounter Additional Health Concerns Infection Onset Date Last Indicated Resolved Time CoV-Risk 03/20/2025 03/20/2025 03/31/2025 1:21 AM EDT Assessment Noted Time PHQ-2 Depression Total Score: 2 12/11/19 4:39 PM EST documented as of this encounter Care Teams Geotechnical Operating Engineer Relationship Specialty Start Date End Date Barb Massey CNP [address] [facility] 7 [place] [address] PCP - General Family Medicine 03/10/23 03/23/25 Julienne Barber DO [address] [place] [address] 7 [place] [address] [email or web address] PCP - General Family Medicine 03/24/25 Barb Massey CNP [address] [place] [address] [address] [place] [address] [email or web address] PCP - FROZEN YOGURT MAKER/PA Co-Sash Assembler Nurse Practitioner 03/24/25 documented as of this encounter Additional Source Comments The information contained in this document represents components of the legal health record. It is not the complete legal health record.[facility]
--- OUTSIDE RECORDS SUMMARY | 2025-08-26 07:42 | XMS_ITS | Encounter Summary ---
Author Organization [facility] Address [address] [place] [address] Phone Care Team Providers Care Lumber Tying Machine Operator Name Role Phone ElisabethChrisJuliennebrenda Mendoza DO Primary Care Provider [phone] Barb Massey ENDORSEMENT CLERK Unavailable Encounter Details Date Type Department Care Team (Late st Contact Info) Description 07/14/2025 Procedure Pass [facility] CT Imaging, [place] [address] [place], [place] [address] Social History Tobacco Use Types Packs/Day Years [...] st Contact Info) Description 08/21/2025 Procedure Pass [address] [address] 09/10/2025 7:15 PM EDT Appointment [address] [address] Sarah Colón MD 60 [place] [address] [email or web address] 09/11/2025 9:30 AM EDT Telemedicine [facility] Department of Neurosurgery 60 [place] [address] Ashleigh Hagen NP 60 [place] [address] [email or web address] 12/09/2025 1:00 PM EST Office Visit [facility] 22 [place] [address] Scott Guido DO 22 [place] [address] documented as of this encounter Visit Diagnoses Not on filedocumented in this encounter Additional Health Concerns Assessment Noted Time PHQ-2 Depression Total Score: 2 08/21/20 25 11:16 AM EDT documented as of this encounter Care Teams Lumber Tying Machine Operator Relationship Specialty Start Date End Date Julienne Barber DO [address] [place] [address] PCP - General Family Medicine 03/24/25 Barb Massey CNP [address] [place] [address] PCP - NOC TECHNICIAN/PA Co-Group Managing Director Nurse Practitioner 03/24/25 documented as of this encounter Additional Source Comments The information contained in this document represents components of the legal health record. It is not the complete legal health record.[facility]
--- OUTSIDE RECORDS SUMMARY | 2025-08-26 07:42 | XMS_ITS | Encounter Summary ---
Author Organization [facility] Address [address] [place] [address] Phone Care Team Providers Care Swatch Maker Name Role Phone Barb Massey CNP Primary Care Provider + Julienne Barber DO Primary Care Provider Barb Massey RETAIL CENTER RECEPTIONIST Unavailable [phone] Encounter Details Date Type Department Care Team (Late st Contact Info) Description 02/14/2025 Procedure Pass [facility]'s Radiology 75 [place] [address] Social History Tobacco Use Types Packs/Day Years [...] st Contact Info) Description 08/21/2025 Procedure Pass [facility], Ct Scan - [address] [address] 09/10/2025 7:15 PM EDT Appointment [facility], Ct Scan - [facility] [address] [place] [address] Sarah Colón MD 60 [place] [address] [email or web address] 09/11/2025 9:30 AM EDT Telemedicine [facility] Department of Neurosurgery 60 [place] [address] Ashleigh Hagen NP 60 [place] [address] [email or web address] 12/09/2025 1:00 PM EST Office Visit [facility] 22 [place] [address] Scott Guido DO 22 [place] [address] documented as of this encounter Visit Diagnoses Not on filedocumented in this encounter Additional Health Concerns Infection Onset Date Last Indicated Resolved Time CoV-Risk 03/20/2025 03/20/2025 03/31/2025 1:21 AM EDT Assessment Noted Time PHQ-2 Depression Total Score: 2 12/11/19 4:39 PM EST documented as of this encounter Care Teams Swatch Maker Relationship Specialty Start Date End Date Barb Massey CNP [address] [place] [address] 7 [place] [address] PCP - General Family Medicine 03/10/23 03/23/25 Julienne Barber DO [address] [place] [address] 7 [place] [address] PCP - General Family Medicine 03/24/25 Barb Massey CNP [address] [place], [place] [address], [place] [address] [email or web address] PCP - FIRE CLAIMS ADJUSTER/PA Co-Elder Counselor Nurse Practitioner 03/24/25 documented as of this encounter Additional Source Comments The information contained in this document represents components of the legal health record. It is not the complete legal health record.[facility]
--- OUTSIDE RECORDS SUMMARY | 2025-08-26 07:42 | XMS_ITS | Encounter Summary ---
Author Organization [facility] Address [address] [facility] [address] [place] [address] Phone Care Team Providers Care Lockstitch Sleeve Maker Name Role Phone Julienne Barber DO Primary Care Provider Barb Massey PIPE RECOVERY SPECIALIST Unavailable Encounter Details Date Type Department Care Team (Late st Contact Info) Description 06/12/2025 Procedure Pass [facility], Ct Scan - [address] [address] Social History Tobacco Use Types Packs/Day Years [...] st Contact Info) Description 08/21/2025 Procedure Pass [facility], [address] [address] 09/10/2025 7:15 PM EDT Appointment [facility], [address] [place] [address] Sarah Colón MD 60 [place] [address] [email or web address] 09/11/2025 9:30 AM EDT Telemedicine [facility] Department of Neurosurgery 60 [place] [address] Ashleigh Hagen NP 60 [place] [address] [email or web address] 12/09/2025 1:00 PM EST Office Visit [facility] 22 [place] [address] Scott Guido DO 22 [place] [address] documented as of this encounter Visit Diagnoses Not on filedocumented in this encounter Additional Health Concerns Assessment Noted Time PHQ-2 Depression Total Score: 2 12/11/19 24 4:39 PM EST documented as of this encounter Care Teams Lockstitch Sleeve Maker Relationship Specialty Start Date End Date Julienne Barber DO [address] [place] [address] PCP - General Family Medicine 03/24/25 Barb Massey CNP [address] [place] [address] PCP - UI UX WEB DEVELOPER/PA Co-Gas Tender Nurse Practitioner 03/24/25 documented as of this encounter Additional Source Comments The information contained in this document represents components of the legal health record. It is not the complete legal health record.[facility]
--- OUTSIDE RECORDS SUMMARY | 2025-08-26 07:42 | XMS_ITS | Continuity of Care Document ---
Author Organization [facility] Address [address] [facility] [address] [place], [place] Phone [phone] Social History Type Date Description Comments Sex Female Sex Unknown Allergies and adverse reactions Active Allergies Criticality Reaction Severity Comments Date Shellfish-Derived Products Unable to assess criticality 03/08/2024 Dairy Unable to assess criticality 03/08/2024
--- OUTSIDE RECORDS SUMMARY | 2025-08-26 07:42 | XMS_ITS | Encounter Summary ---
Author Organization [facility] Address [address] [facility] [address] [place] [address] Phone Care Team Providers Care Load Out Supervisor Name Role Phone Julienne Barber DO Primary Care Provider [phone] Barb Massey GAS PLUMBING INSPECTOR Unavailable [phone] Reason for Referral * MRI/CAT Scan - Authorized Specialty Diagnoses / Procedures Referred By Diana t Referred To Contact Radiology Diagnoses Normal pressure hydrocephalus Procedures CT Head Sarah Colón MD [address] [place] [address] Phone: tel: fax: [email or web address] Referral ID Status Reason Start Date Expiration Date V isits Requested Visits Authorized [id number] Authorized 08/21/2025 08/21/2026 1 1 Encounter Details Date Type Department Care Team (Late st Contact Info) Description 08/21/2025 Orders Only [facility] Department of Neurosurgery [address] [place] [address] [email or web address] Normal pressure hydrocephalus (Primary Dx) Social History Tobacco Use Types Packs/Day Years [...] st Contact Info) Description 08/21/2025 Procedure Pass [facility], [address] [address] 09/10/2025 7:15 PM EDT Appointment [address] [address] Sarah Colón MD 60 [place] [address] [email or web address] 09/11/2025 9:30 AM EDT Telemedicine [facility] Department of Neurosurgery [address] [place] [address] Ashleigh Hagen NP 60 [place] [address] [email or web address] 12/09/2025 1:00 PM EST Office Visit [facility] 22 [place] [address] Scott Guido DO 22 [place] [address] Scheduled Orders Name Type Priority Associated Diagnoses Orde r Schedule CT Head Imaging Routine Normal pressure hydrocephalus Expected: 09/11/2025, Expires: 02/18/2027 documented as of this encounter Visit Diagnoses Diagnosis Normal pressure hydrocephalus- Primary Idiopathic normal pressure hydrocephalus (INPH) documented in this encounter Additional Health Concerns Assessment Noted Time PHQ-2 Depression Total Score: 2 08/21/20 11:16 AM EDT documented as of this encounter Care Teams Load Out Supervisor Relationship Specialty Start Date End Date Julienne Barber DO [address] [facility], [address] [place] [address] [email or web address] PCP - General Family Medicine 03/24/25 Barb Massey CNP [address] [facility] [place] [address] [email or web address] PCP - CRANE OPERATOR/PA Co-Rn Ent Nurse Practitioner 03/24/25 documented as of this encounter Additional Source Comments The information contained in this document represents components of the legal health record. It is not the complete legal health record.[facility]
--- OUTSIDE RECORDS SUMMARY | 2025-08-26 07:42 | XMS_ITS | Encounter Summary ---
Author Organization [facility] Address [address] [facility] [address] [place] [address] Phone Care Team Providers Care Trim Attacher Name Role Phone Barb Massey CNP Primary Care Provider + uJlienne Barber DO Primary Care Provider [phone] Barb Massey BAKER BISCUIT Unavailable Encounter Details Date Type Department Care Team (Late st Contact Info) Description 03/05/2024 Procedure Pass [address] [place] [address] Social History Tobacco Use Types Packs/Day Years [...] work, study, or receive health care? No 12/11/2023 Education Answer Date Recorded Are you interested [...] housing situation today? I have maxime marinelli 12/11/2023 How many times have you move d in the past 12 months? Zero (I did not move) 12/11/2023 Paying for Meds Answer Date Recorded Do you have trouble paying for medicines? No 12/11/2023 Paying Utility Bills Answer Date Record ed Do you have trouble paying your heating or elect ricity bill? No 12/11/2023 Transportation Answer Date Recorded Has the lack of transportati on kept you from medical appointments or from getting medications? No 12/11/2023 Digital Access Answer Date Recorded No 12/11/2023 Yes 12/11/2023 Do you have reliable internet access at home? Ye s 12/11/2023 Do you have a device (e.g., phone, tablet, computer) with a working camera? Yes 12/11/2023 Comments No Sex and Gender Information Value Date Recorded Sex Assigned at Female 11/10/2021 6:21 AM EST Legal Sex Female 6:04 PM EST Gender Identity Female 11/10/2021 6:21 AM EST Sexual Orientation Straight 11/10/2021 6: 21 AM EST documented as of this encounter Plan of Treatment Upcoming Encounters Date Type Department Care Team (Late st Contact Info) Description 08/21/2025 Procedure Pass [facility], Ct Scan [address] [address] 09/10/2025 7:15 PM EDT Appointment [address] [address] Sarah Colón MD [address] [place] [address] [email or web address] 09/11/2025 9:30 AM EDT Telemedicine [facility] Department of Neurosurgery 60 [place] [address] Ashleigh Hagen NP [address] [place] [address] [email or web address] 12/09/2025 1:00 PM EST Office Visit [facility] 22 [place] [address] Scott Guido DO 22 [place] [address] documented as of this encounter Visit Diagnoses Not on filedocumented in this encounter Additional Health Concerns Infection Onset Date Last Indicated Resolved Time CoV-Risk 03/20/2025 03/20/2025 03/31/2025 1:21 AM EDT Assessment Noted Time PHQ-2 Depression Total Score: 2 12/11/19 4:39 PM EST documented as of this encounter Care Teams Trim Attacher Relationship Specialty Start Date End Date Barb Massey CNP [address] [place] [address] PCP - General Family Medicine 03/10/23 03/23/25 Julienne Barber DO [address] [place] [address] PCP - General Family Medicine 03/24/25 Barb Massey CNP [address] [place] [address] PCP - ACID PUMPER/PA Co-Director Call Center Sales Nurse Practitioner 03/24/25 documented as of this encounter Additional Source Comments The information contained in this document represents components of the legal health record. It is not the complete legal health record.[facility]
--- OUTSIDE RECORDS SUMMARY | 2025-08-26 07:42 | XMS_ITS | Encounter Summary ---
Author Organization [facility] Address [address] [facility] [address] [place] [address] Phone Care Team Providers Care Professional Fee Coder Name Role Phone Barb Massey CNP Primary Care Provider + Julienne Barber DO Primary Care Provider [phone] Barb Massey MANAGER BIOLOGICS Unavailable Encounter Details Date Type Department Care Team (Late st Contact Info) Description 12/02/2024 Procedure Pass [address] [place] [address] Social History Tobacco Use Types Packs/Day Years [...] computer) with a working camera? Yes 12/11/2023 Intimate Partner Violence Answer Date R ecorded Are you denied basic needs s uch as food, clothing, or medical care? No 06/13/2024 In the past 12 months have y ou been in a relationship with a person who hurts, threatens, or tries to control you? No 06/13/2024 Are you denied basic needs s uch as food, clothing, or medical care? No 06/13/2024 In the past 12 months have y ou been in a relationship with a person who hurts, threatens, or tries to control you? No 06/13/2024 Comments No Sex and Gender Information Value Date Recorded Sex Assigned at Female 11/10/2021 6:21 AM EST Legal Sex Female 6:04 PM EST Gender Identity Female 11/10/2021 6:21 AM EST Sexual Orientation Straight 11/10/2021 6: 21 AM EST documented as of this encounter Plan of Treatment Upcoming Encounters Date Type Department Care Team (Late st Contact Info) Description 08/21/2025 Procedure Pass [facility], Ct Scan - [address] [address] 09/10/2025 7:15 PM EDT Appointment [facility], Ct Scan - [facility] [address] [place] [address] Sarah Colón MD 60 [place] [address] [email or web address] 09/11/2025 9:30 AM EDT Telemedicine [facility] Department of Neurosurgery 60 [place] [address] Ashleigh Hagen NP 60 [place] [address] [email or web address] 12/09/2025 1:00 PM EST Office Visit [facility] 22 [place] [address] Scott Guido DO 22 [place] [address] documented as of this encounter Visit Diagnoses Not on filedocumented in this encounter Additional Health Concerns Infection Onset Date Last Indicated Resolved Time CoV-Risk 03/20/2025 03/20/2025 03/31/2025 1:21 AM EDT Assessment Noted Time PHQ-2 Depression Total Score: 2 12/11/19 24 4:39 PM EST documented as of this encounter Care Teams Professional Fee Coder Relationship Specialty Start Date End Date Barb Massey CNP [address] [place] [address] PCP - General Family Medicine 03/10/23 03/23/25 Julienne Barber DO [address] [place] [address] 7 [place] [address] PCP - General Family Medicine 03/24/25 Barb Massey CNP [address] [place] [address], [address] [place] [address] [email or web address] PCP - EDGE GLUER/PA Co-Window Trimmer Apprentice Nurse Practitioner 03/24/25 documented as of this encounter Additional Source Comments The information contained in this document represents components of the legal health record. It is not the complete legal health record.[facility]
--- OUTSIDE RECORDS SUMMARY | 2025-08-26 07:42 | XMS_ITS | Encounter Summary ---
Author Organization [facility] Address [address] [facility] [address] [place] [address] Phone Care Team Providers Care Clinical Partner Name Role Phone Barb Massey CNP Primary Care Provider + Julienne Barber DO Primary Care Provider Barb Massey INSPECTOR ROUGH CASTINGS Unavailable Encounter Details Date Type Department Care Team (Late st Contact Info) Description 03/05/2024 Procedure Pass [facility], Ct Scan - [address] [address] Social History Tobacco Use Types Packs/Day Years [...] st Contact Info) Description 08/21/2025 Procedure Pass [facility], Ct Scan [address] [address] 09/10/2025 7:15 PM EDT Appointment [address] [address] Sarah Colón MD [address] [place] [phone] [email or web address] 09/11/2025 9:30 AM EDT Telemedicine [facility] Department of Neurosurgery [address] [place] [address] Ashleigh Hagen CLAMP OPERATOR [address] [place] [address] [email or web address] 12/09/2025 1:00 PM EST Office Visit [facility] [address] [place] [address] Scott Guido DO 22 [place] [address] documented as of this encounter Visit Diagnoses Not on filedocumented in this encounter Additional Health Concerns Infection Onset Date Last Indicated Resolved Time CoV-Risk 03/20/2025 03/20/2025 03/31/2025 1:21 AM EDT Assessment Noted Time PHQ-2 Depression Total Score: 2 12/11/19 4:39 PM EST documented as of this encounter Care Teams Clinical Partner Relationship Specialty Start Date End Date Barb Massey CNP [address] [place] [address] PCP - General Family Medicine 03/10/23 03/23/25 Julienne Barber DO [address] [place] [address] PCP - General Family Medicine 03/24/25 Barb Massey CNP [address] [place] [address] 7 [place] [address] PCP - CLAMP OPERATOR/PA Co-Network Security Analyst Nurse Practitioner 03/24/25 documented as of this encounter Additional Source Comments The information contained in this document represents components of the legal health record. It is not the complete legal health record.[facility]
--- OUTSIDE RECORDS SUMMARY | 2025-08-26 07:42 | XMS_ITS | Clinical Summary ---
Author Organization [facility] Address [address] [place] [address] [place] [phone] Phone Care Team Providers Care Bowling Ball Assembler Name Role Phone Elisabeth Julienne Mendoza DO Primary Care Provider [phone] Barb Massey HYBRID DERIVATIVES TRADER Unavailable Allergies Active Allergy Reactions Criticality Noted Date Comments Alendronate Itching Medium 06/12/2025 Gluten 08/12/2022 Other reaction(s): body hurts if ingests, body not absorbs well Gluten Protein Other (See Comments) 04/12/2019 Body inflammation Hydromorphone Itching 06/23/2025 Lobster 03/10/2025 Milk Containing Products (Dairy) Itching 04/12/2019 breaksout Other reaction(s): inflammation and itch Other 08/12/2022 Other reaction(s): grass, down, dust, seasonal allergies Oxycodone 08/12/2022 Other reaction(s): nausea and vomiting Shellfish Containing Products Anaphylaxis High 09/20/2019 Other reaction(s): swelling , vomiting , throat feels like closing Soy Protein Other (See Comments) 04/12/2019 inflammation Medications estradioL (ESTRACE) 0.01 % (0.1 mg/gram) vaginal cream Place 1 g vaginally 2 (two) times a week. 01/09/20 24 Active denosumab (PROLIA) 60 mg/mL Syrg subcutaneous syringe Inject 60 mg under the skin once. Active sertraline (ZOLOFT) 100 MG tablet TAKE 1 TABLET(100 MG) BY MOUTH DAILY 30 tablet 11 07/30/20 25 Active sertraline (ZOLOFT) 100 MG tablet Take 1 tablet (100 mg total) by mouth daily. 30 tablet 2 06/04/20 25 025 Discontinued Active Problems Problem Noted Date Diagnosed Date Hydrocephalus in adult 03/05/2025 Cognitive change 02/12/2025 Contracture of palmar fascia 02/12/2025 Endometrial cancer 02/12/2025 Ex-smoker 02/12/2025 Gait disturbance 02/12/2025 History of endometrial cancer 02/12/2025 Nocturia 02/12/2025 Class 1 obesity 02/12/2025 Overactive bladder 02/12/2025 Urinary incontinence in female 02/12/2025 Dizziness 11/08/2024 Assessment & Plan (12/02/2024 4:32 PM EST): She thinks it may be improving, still has daily symptoms, ongoing for over 6 weeks now. Continues to be off balance, generally feels unwell. I suspect this was caused or worsened by abrupt discontinuation of her cymbalta. Neuro is grossly intact. At this point I think an MRI would be beneficial prior to get getting her spinal stimulator, especially with a history of malignancy. She is in agreement with this. EKG shows NSR with BBB, unchanged from previous. Orders: MRI Brain; Future ECG 12-LEAD Assessment & Plan (11/08/2024 1:21 PM EST): Ongoing for months, acute flare in the last 2 weeks. It is likely that abruptly stopping her cymbalta is contributing. She has been taking dramamine with some relief. Neuro is grossly intact. She is concerned that her lack of balance and shuffling gait is related to her dizziness. We discussed MRI- she reports her stimulator is MRI safe. She would like to hold off on imaging to see if more time without cymbalta improves symptoms. Stay well hydrated, move slowly, monitor symptoms and follow up for continued concerns. EKG in office shows NSR with RBBB, minimal change from priors. Malaise and fatigue 03/29/2024 Age-related osteoporosis vilma ervin current pathological fracture 03/29/2024 Assessment & Plan (01/09/2025 11:54 AM EST): Other than the risk factors for osteoporosis above I did not find any other etiologies. She continues on calcium and vitamin D supplements and is doing weightbearing exercises. Today we discussed antiresorptive medications such as alendronate, zoledronic acid and denosumab. She has opted to use alendronate because it is an easy medication to take. She was advised that it must be taken fasting with water she must remain upright for 30 minutes. after taking the medication and she should not eat for 30 minutes afterwards. She did review adverse effects of this medication. She also inquired whether if she develop any adverse effects if she could stop it. I did inform her she can just stop it without any titration. At this point I will prescribe the medication and have her follow-up in 11 months. She should repeat lab work fasting 2 weeks prior to the visit. I gave the patient a list of adverse effects with the use of alendronate. I also gave her patient information on osteoporosis management. Assessment & Plan (10/01/2024 1:50 PM EST): This is a patient who was diagnosed with osteoporosis on 06/2022. She was never told does not recall being treated for this. She has had at least 1 fragility fracture of the toe. Her risk factors for osteoporosis include menopause, age, family history of hip fracture, remote tobacco use, use of an SSRI/SNRI, intra-articular corticosteroid injections. She is lost 2.5 inches in height. At this point I will do biochemical evaluation for secondary causes of osteoporosis and I requested a DXA scan to be done at [facility]. I have given the patient information on antiresorptive medications to read. However I will not give her a prescription presently because I need to ensure that she does not have a secondary etiology for osteoporosis. She will have a follow-up appointment in 3 months time but I advised her that she can see me sooner if all her lab work is completed. She just needs to schedule herself for cancellation visit. Assessment & Plan (03/29/2024 10:05 AM EDT): Osteoporosis: Concerns about bone strength for potential back surgery. Recommended to start Prolia. -Refer to methods and procedures analyst for Prolia initiation and management. Tremor 03/29/2024 Assessment & Plan (11/08/2024 12:57 PM EST): Unchanged, no new neurologic red flags. Assessment & Plan (03/29/2024 10:06 AM EDT): Tremors: Reports noticing mild tremors, particularly when performing tasks requiring dexterity. No worsening reported. -Order basic labs to rule out physiological causes. -Consider further investigation if labs are normal and tremors persist or worsen. Annual physical exam 12/12/2023 Assessment & Plan (12/12/2023 10:33 AM EST): Stable health, well balanced diet, trying to get back into being active. No concerning findings on exam. Functional urinary incontinence 12/12/2023 Assessment & Plan (03/29/2024 10:04 AM EDT): Overactive Bladder: On Myrbetriq and estradiol for symptoms. Reports improvement with Myrbetriq despite cost concerns. No UTIs reported. -Continue Myrbetriq and estradiol. -Follow-up with Dr. Lopez as scheduled. Assessment & Plan (12/12/2023 10:34 AM EST): Has small volume incontinence, frequency. Is going to see to address this. Wheeze 12/12/2023 Assessment & Plan (12/12/2023 10:48 AM EST): Not present on exam, reports consistent with upper airway wheeze. She feels it is more present at night/when laying down. She has an aura ring that also indicates poor sleep quality, has been told she makes noise when sleeping. We did discuss that a LDCT for lung cancer screening is not recommended but we can do diagnostic screens if necessary. Does sound like she may have sleep apnea, referral to sleep medicine. Neuropathy 10/06/2022 Uterine cancer 10/06/2022 Atrophic vaginitis 10/06/2022 Assessment & Plan (11/08/2024 12:57 PM EST): Spinal stimulator in place. Shuffling gait always thought to be from back pain. Pain is better managed currently. Low back pain 09/27/2022 Moderate episode of recurrent major depressive d isorder 09/27/2022 Assessment & Plan (01/27/2025 11:26 AM EST): Anxiety is significant. Will increase zoloft to 100mg. I did also advise she can try a prn medication, she will consider this. If symptoms not improving in the next 4-6 weeks we can consider medication changes and referral to to discuss better management. Assessment & Plan (11/08/2024 12:57 PM EST): Stopped cymbalta. Would like to go on the medication I had before that my daughter is on. She is unsure of which medication this is and will let me know. She would like something weak to help with depression and anxiety. Once I know which medication she would like to try we can initiate that if it is safe to do so. Assessment & Plan (03/29/2024 10:04 AM EDT): Depression: Reports increased fatigue, decreased motivation, and evening snacking. Currently on Cymbalta. -Order basic labs including CBC, metabolic panel, vitamin D, and TSH to rule out physiological contributors to fatigue. -Consider referral to [facility] for short-term medication management. Assessment & Plan (12/12/2023 10:29 AM EST): Duloxetine is mostly for pain. Therapy was helpful but how many times can you talk about it . Uses food to cope. Not considering changes at this time. Assessment & Plan (03/17/2023 10:48 AM EDT): Is taking capsules, unable to cut dosing in half. Will take one capsule every other day for two weeks, then will take one capsule every 3rd day for two weeks, then stop. She does not want to start another medication at this time but will reach out if she thinks it is needed. She should continue to see her therapist and integrative medicine provider. She will follow up as needed. Herpes simplex 09/27/2022 Spinal stenosis of lumbar region 07/22/2021 Assessment & Plan (03/29/2024 10:04 AM EDT): Chronic Back Pain: Persistent despite physical therapy. Recent imaging shows stable spondylolisthesis and spinal stenosis. Patient reports significant impact on quality of life and mood. -Continue current management plan. -Consider referral to pain management for additional options. Follow-up: Plan to review lab results and adjust management plan as needed. Assessment & Plan (12/12/2023 10:49 AM EST): Still having significant pain. Is seeing PSS, doing PT. Is wondering about changing her duloxetine, does have itching and headaches as side effects. We did discuss this can be increased to 120mg daily but side effects may become less tolerable. She will consider this. Does not currently take OTC pain medications. We did discuss using ibuprofen as needed to assist with pain. Assessment & Plan (04/26/2023 3:05 PM EDT): She is not currently interesting in surgery. Is going down on duloxetine d/t pain. Has tried PT, has tried NSAIDs without significant improvement. Did discuss tramadol but she does not want a strong pain medication that may cause constipation. There are few options I can offer her. She is interested in a second opinion and a referral was placed to see [facility] to discuss. History of uterine cancer 03/15/2021 Overview (03/15/2021): 02/12 Stage 1 [facility] Gluten free diet 03/15/2021 History of total knee replacement, bilateral 09/2019 Bilateral knee pain 04/12/2019 CATHLEEN (obstructive sleep apnea) Overview (02/21/2025): CPAP Normal pressure hydrocephalus Resolved Problems Problem Noted Date Diagnosed Date Resolved Date Postmenopausal bleeding 10/06/2022 11 Hand injury, right, initial encounter 04/12/2019 01/27/2025 Bilateral primary osteoarthritis of knee 04/12/2019 07/22/2021 Primary osteoarthritis of right knee 07/22/2021 Primary osteoarthritis of left knee 07/22/2021 Encounters Date Type Department Care Team Description 08/21/2025 11:00 AM EDT Office Visit [facility] Department of Neurosurgery [address] [place] [address] Ashleigh Hagen NP Normal pressure hydrocephalus (Primary Dx); Presence of programmable ventriculoperitoneal shunt 08/21/2025 10:29 AM EDT - 08/21/2025 11:59 PM EDT Hospital Encounter [facility] CT Imaging, [address] [place] [address] Sarah Colón MD Discharge Disposition: Home or Self Care 08/21/2025 Orders Only [facility] Department of Neurosurgery [address] [place] [address] Julienne Hernandez Normal pressure hydrocephalus (Primary Dx) 07/30/2025 Refill [facility] [address] [place] [address] Jessica Zaldivar CNP Medication Refill 07/14/2025 Procedure Pass [facility] CT Imaging, [address] [place] [address] 07/14/2025 Orders Only [facility] Department of Neurosurgery [address] [place] [address] Julienne Hernandez Normal pressure hydrocephalus (Primary Dx) 07/14/2025 Telephone [facility] Department of Neurosurgery [address] [place] [address] Jose Monteiro MD 07/03/2025 8:47 AM EDT - 07/03/2025 11:59 PM EDT Hospital Encounter [facility], [facility] [address] [place] [address] Sarah Colón MD Discharge Disposition: Home or Self Care 06/23/2025 11:30 AM EDT Office Visit [facility] [address] [place] [address] Julienne Barber Z, DO Ear itching (Primary Dx) 06/12/2025 11:30 AM EDT Office Visit [facility] Department of Neurosurgery [address] [place] [address] Sarah Colón MD Normal pressure hydrocephalus (Primary Dx); Presence of programmable ventriculoperitoneal shunt 06/12/2025 10:20 AM EDT - 06/12/2025 11:59 PM EDT Hospital Encounter [facility] CT Imaging, [address] [place] [address] Sarah Colón MD Discharge Disposition: Home or Self Care 06/12/2025 Procedure Pass [facility], [facility] [address] [place] [address] 06/12/2025 Orders Only [facility] Department of Neurosurgery [address] [place] [address] David Julienne Normal pressure hydrocephalus (Primary Dx) 06/03/2025 1:00 PM EDT Nurse Only [facility] [address] [place] [address] Scott Guido DO Age-related osteoporosis without current pathological fracture (Primary Dx) 06/03/2025 Refill [facility] [address] [place] [address] Mary Rosas MA 03/13/2025 Procedure Pass [facility] Imaging, [address] [place] [address] from Last 3 Months Immunizations Immunization Administration Dates Next Due COVID-19 (Pre-09/18) Pfizer Vaccine, mRNA, PF 01/18/2021,12/27/2020 Influenza High-Dose Quadriva lent Preservative Free IM 10/25/2022 Influenza Quadrivalent Adjuv anted Preservative Free IM 09/07/2021 Influenza Quadrivalent w/ Pr eservative IM 10/19/2020 Influenza, Unspecified Formulation 11/13/2009(De ferred: Patient Decision) Pneumococcal conjugate PCV13 10/07/2019(Deferred : Patient Refused) Pneumococcal polysaccharide PPSV23 11/13/2009(De ferred: Patient Decision) Td (adult),2 Lf Tetanus Toxo id, PF, Adsorbed 07/22/2021 Family History Medical History Relation Comments Aneurysm Father cerebral hemorrh age Allergies Sister COPD Sister Pancreatic cancer Son 1 age 49 Sudden Son 2 age 48 caus e onknown Relation Status Comments Father Sister Son 1 Son 2 Social History Tobacco Use Types Packs/Day Years Used Date Smoking Tobacco: Former Cigarettes 0 04/12/1964 - 04/12/1989 Smokeless Tobacco: Never Tobacco Cessation:Counseling Given: Not Answered Alcohol Use Standard Drinks/Week Comments Yes 2 [...] Orientation Straight 11/10/2021 6: 21 AM EST Last Filed Vital Signs Vital Sign Reading Time Taken Comments Blood Pressure 136/86 08/21/2025 11:15 AM EDT Pulse 68 08/21/2025 11:15 AM EDT Temperature 36.4 C (97.5 F) 08/21/2025 11:15 AM EDT Respiratory Rate 16 06/12/2025 11:1 7 AM EDT Oxygen Saturation 96% 08/21/2025 11: 15 AM EDT Inhaled Oxygen Concentration 100% 03/05/2025 12:35 PM EDT Weight 84.8 kg (187 lb) 08/21/2025 11:1 5 AM EDT pt refused to be weighed but wanted to self report her weight from yesterday Height 154.9 cm (5' 1 ) 08/21/2025 11:1 5 AM EDT Body Mass Index 35.33 08/21/2025 11:15 AM EDT Plan of Treatment Upcoming Encounters Date Type Department Care Team (Late st Contact Info) Description 08/21/2025 Procedure Pass [address] [address] 09/10/2025 7:15 PM EDT Appointment [address] [address] Sarah Colón MD [address] [place] [address] [email or web address] 09/11/2025 9:30 AM EDT Telemedicine [facility] Department of Neurosurgery [address] [place] [address] Ashleigh Hagen, ALHAJI [address] [place] [address] [email or web address] 12/09/2025 1:00 PM EST Office Visit [facility] [address] [place] [address] Scott Guido DO [address] [place] [address] [email or web address] Health Maintenance Due Date Last Done Comments PNEUMOCOCCAL VACCINES (50+ years) (1 of 2 - PCV) 1966 ZOSTER VACCINES (1 of 2) 1966 RSV VACCINE (1 - 1-dose 75+ series) 2022 INFLUENZA VACCINE (#1) 2025 , 09/07/2021, 10/19/2020 COVID-19 VACCINE ( season) 2025 10/25/2022, 09/07/2021, 01/18/2021, Additional history exists LIPID PANEL 07/23/2026 07/23/2021 DEPRESSION SCREENING 08/21/2026 08/21/2025 SMOKING Hx and SMOKELESS TOBACCO SCREENING 08/21/2026 08/21/2025 Adult Td,Tdap Booster 07/22/2031 07/22/2021 HEPATITIS C SCREENING Completed 07/23/2021 OSTEOPOROSIS SCREENING INITIAL (ONE-TIME) Completed 12/03/2024, 06/30/2022 HEPATITIS A VACCINES Aged Out No long er eligible based on patient's age to complete this topic HIB VACCINES Aged Out No longer eligi ble based on patient's age to complete this topic MENINGOCOCCAL VACCINES (ACWY) Aged Out No longer eligible based on patient's age to complete this topic MENINGOCOCCAL VACCINES (B) Aged Out N o longer eligible based on patient's age to complete this topic Medical Devices Implanted Type Area Upkeep Worker Device Identifier Shelf Expiration Date Model / Serial / Lot Valve Shunt 120cm Hakim Micro Programmable [place] Unitized - [id number] Implanted:Qty: 1 on 03/05/2025 by Sarah Colón MD at [facility] STANDARD Right: Cranial [employer] TIMA [id number] / / Cement Bone Biomet Standard R 1x40 Us - [id number] Implanted:Qty: 2 on 10/07/2019 by Waldo Chow MD at [facility] Left: Knee MARITZA / DIV OF [employer] 07/27/2023 [id number] / / [id number] Button Patella 34x8.5mm Knee Vanguard Uhmwpe Single Peg Series A Standard - [id number] Implanted:Qty: 1 on 10/07/2019 by Waldo Chow MD at [facility] Right: Knee [employer] 08/26/2024 [id number] / / [id number] Cement Bone Biomet Standard R 1x40 Us - [id number] Implanted:Qty: 2 on 10/07/2019 by Waldo Chow MD at [facility] Right: Knee MARITZA / DIV OF LiveAir NetworksIBB 07/27/2023 [id number] / / [id number] Tray Beam 67mm Tibial Primary Vanguard [place] I Revision Interlock Cemented - [id number] Implanted:Qty: 1 on 10/07/2019 by Waldo Chow MD at [facility] Left: Knee [employer] 05/23/2028 [id number] / / [id number] Knee Implant 62.5mm Component Femoral Vanguard Interlok [place] Cruciate Retaining Cemented Left - [id number] Implanted:Qty: 1 on 10/07/2019 by Waldo Chow MD at [facility] Left: Knee [employer] 07/11/2029 [id number] / / [id number] Button Patella 34x8.5mm Knee Vanguard Uhmwpe Single Peg Series A Standard - [id number] Implanted:Qty: 1 on 10/07/2019 by Waldo Chow MD at [facility] Left: Knee [employer] 08/26/2024 [id number] / / [id number] Knee Bearing 63 [id number] Tibial Vanguard Polyethylene Cruciate Retaining Lipped - [id number] Implanted:Qty: 1 on 10/07/2019 by Waldo Chow MD at [facility] Left: Knee [employer] 07/04/2024 [id number] / / [id number] Knee Implant 65.0mm Component Femoral Vanguard Interlok [place] Cruciate Retaining Cemented Right - [id number] Implanted:Qty: 1 on 10/07/2019 by Waldo Chow MD at [facility] Right: Knee [employer] 05/26/2029 [id number] / / [id number] Knee Bearing 63 [id number] Tibial Vanguard Polyethylene Cruciate Retaining Lipped - [id number] Implanted:Qty: 1 on 10/07/2019 by Waldo Chow MD at [facility] Right: Knee [employer] 08/03/2021 [id number] / / [id number] Tray Beam 67mm Tibial Primary Vanguard [place] I Revision Interlock Cemented - [id number] Implanted:Qty: 1 on 10/07/2019 by Waldo Chow MD at [facility] Right: Knee [employer] 09/04/2028 [id number] / / [id number] Procedures Procedure Name Priority Date/Time Associated Diagnosis Comments CT HEAD WITHOUT CONTRAST Routine 08/21/2025 10:41 AM EDT Normal pressure hydrocephalus CT HEAD WITHOUT CONTRAST Routine 07/03/2025 9:01 AM EDT Normal pressure hydrocephalus CT HEAD WITHOUT CONTRAST Routine 06/12/2025 10:26 AM EDT Normal pressure hydrocephalus BD DXA MONITORING Routine 12/03/2024 12: 35 PM EST Age-related osteoporosis without current pathological fracture LIPID PANEL Routine 07/23/2021 7:55 AM EDT Medicare annual wellness visit, subsequent HEPATITIS C ANTIBODY, QUALITATIVE Routine 07/23/2021 7:55 AM EDT Need for hepatitis C screening test from Last 3 Months or Most Recently Relevant to Health Maintenance Results * CT HEAD WITHOUT CONTRAST (08/21/2025 10:41 AM EDT) Anatomical Region Laterality Modality Head Computed Tomogra phy 08/21/2025 11:2 3 AM EDT Impressions 08/21/2025 11:27 AM EDT 1. Ventricles appear unchanged from July 03, 2025. Narrative 08/21/2025 11:[address] HEAD WITHOUT CONTRAST Referring clinician's provided indication for this examination in [facility]: * Hydrocephalus TECHNIQUE: Multidetector-row CT of the [...] disease. No orbital abnormality. Procedure Note Reynaldo Brice, DO - 08/21/2025 CT HEAD WITHOUT CONTRAST Referring clinician's provided indication for this examination in [facility]: *Hydrocephalus TECHNIQUE: Multidetector-row CT of the head [...] Ventricles appear unchanged from July 03, 2025. us Sarah Colón MD IMG CT HEAD/NECK Final Resu lt * CT HEAD WITHOUT CONTRAST (07/03/2025 9:01 AM EDT) Anatomical Region Laterality Modality Head Computed Tomogra phy 07/04/2025 4:31 PM EDT Impressions 07/04/2025 4:37 PM EDT 1. Stable position of the ventriculostomy catheter. Stable ventricular size. 2. No acute intracranial findings. Narrative 07/04/2025 4:[address] HEAD WITHOUT CONTRAST Referring clinician's provided indication for this examination in [facility]: * Hydrocephalus TECHNIQUE: Multidetector-row CT of the head was performed without intravenous contrast using tailored dose modulation techniques. Images were reconstructed in the axial, coronal, and sagittal planes. COMPARISON: Head CT June 12, 2025. FINDINGS: Brain Parenchyma: The brain is grossly stable in appearance. Linear hyperdensity seen posteriorly along the occipital lobe is likely artifactual. There are few hypodensities in the white matter, unchanged, probably sequela of chronic small vessel changes. No large acute territorial infarct or hemorrhage. No mass- effect. Ventricular System and Extra-Axial Spaces: Left parietal approach ventriculostomy catheter again noted ending in the left lateral ventricle frontal horn, stable in position and. The ventricles are stable in size. No midline shift or extra-axial fluid collection. Partially empty sella again noted, nonspecific finding. Osseous and Extracranial Structures: Orbital abnormality. The paranasal sinuses and mastoids are grossly clear. Bones and extracranial soft tissues are unremarkable. Procedure Note Devon Vora MD - 07/04/2025 CT HEAD WITHOUT CONTRAST Referring clinician's provided indication for this examination in [facility]: *Hydrocephalus TECHNIQUE: Multidetector-row CT of the head was performed withoutintravenous contrast using tailored dose modulation techniques. Imageswere reconstructed in the axial, coronal, and sagittal planes. COMPARISON: Head CT June 12, 2025. FINDINGS: Brain Parenchyma: The brain is grossly stable in appearance. Linearhyperdensity seen posteriorly along the occipital lobe is likelyartifactual. There are few hypodensities in the white matter, unchanged,probably sequela of chronic small vessel changes. No large acuteterritorial infarct or hemorrhage. No mass-effect. Ventricular System and Extra-Axial Spaces: Left parietal approachventriculostomy catheter again noted ending in the left lateral ventriclefrontal horn, stable in position and. The ventricles are stable in size.No midline shift or extra-axial fluid collection. Partially empty sellaagain noted, nonspecific finding. Osseous and Extracranial Structures: Orbital abnormality. The paranasalsinuses and mastoids are grossly clear. Bones and extracranial softtissues are unremarkable. IMPRESSION: 1. Stable position of the ventriculostomy catheter. Stable ventricularsize. 2. No acute intracranial findings. us Sarah Colón MD IMG CT HEAD/NECK Final Resu lt * CT HEAD WITHOUT CONTRAST (06/12/2025 10:26 AM EDT) Anatomical Region Laterality Modality Head Computed Tomogra phy 06/12/2025 11:2 9 AM EDT Impressions 06/12/2025 11:37 AM EDT Compared to : * Roughly similar shunted ventricular caliber. No extra-axial fluid collections. Narrative 06/12/2025 11:[address] HEAD WITHOUT CONTRAST Referring clinician's provided indication for this examination in [facility]: * Hydrocephalus TECHNIQUE: Multidetector-row CT of the head was performed without intravenous contrast using tailored dose modulation techniques. Images were reconstructed in the axial, coronal, and sagittal planes. COMPARISON: CT HEAD WITHOUT CONTRAST FINDINGS: Brain Parenchyma: No midline shift, mass effect, parenchymal hemorrhage, or evidence of acute/subacute territorial infarction. Similar nonspecific areas of hypoattenuation in the white matter. Ventricular System and Extra-Axial Spaces: Unchanged position of ventriculostomy catheter. Roughly similar ventricular caliber. No extra-axial fluid collections. Osseous and Extracranial Structures: No significant interval changes. Procedure Note Abisai Olea MD - 06/12/2025 CT HEAD WITHOUT CONTRAST Referring clinician's provided indication for this examination in [facility]: *Hydrocephalus TECHNIQUE: Multidetector-row CT of the head was performed withoutintravenous contrast using tailored dose modulation techniques. Imageswere reconstructed in the axial, coronal, and sagittal planes. COMPARISON: CT HEAD WITHOUT CONTRAST FINDINGS: Brain Parenchyma: No midline shift, mass effect, parenchymal hemorrhage,or evidence of acute/subacute territorial infarction. Similar nonspecificareas of hypoattenuation in the white matter. Ventricular System and Extra-Axial Spaces: Unchanged position ofventriculostomy catheter. Roughly similar ventricular caliber. Noextra-axial fluid collections. Osseous and Extracranial Structures: No significant interval changes. IMPRESSION: Compared to : * Roughly similar shunted ventricular caliber. No extra-axial fluidcollections. us Sarah Colón MD IMG CT HEAD/NECK Final Resu lt * DXA Monitoring (12/03/2024 12:35 PM EST) Anatomical Region Laterality Modality Bone Density Bone Density us Scott Guido DO IMG BD BONE DENSITY DEXA Final R esult * Hepatitis C antibody, qualitative (07/23/2021 7:55 AM EDT) HCV NON-REACTIV E NON-REACTI VE [facility] Blood 07/23/2021 7:55 AM EDT 07/23/2021 8:21 AM EDT us Ary Moralez MD LAB BLOOD ORDERABLES Final Result [address] [address] * (ABNORMAL) Lipid panel (07/23/2021 7:55 AM EDT) HDL 77 mg/dL [facility] Comment: Interpretation <40 mg/dL: Low HDL cholesterol (major risk factor for CHD) Greater than or equal to 60 mg/dL: High HDL cholesterol ( negative risk factor for CHD) HDL - cholesterol is affected by a number of factors, e.g. smoking, excerise, hormones, sex and age. CHOLESTEROL 204 0 - 240 mg/dL [facility] TRIGLYCERIDES 80 30 - 160 mg/dL [facility] LDL 111 50 - 129 mg/dL [facility] Comment: LDL levels in terms of risk for coronary heart disease: <100 mg/dL: Optimal 100-129 mg/dL: Near or above optimal 130-159 mg/dL: Borderline high 160-189 mg/dL: High >190 mg/dL: Very High CARDIAC RISK RATIO 2.6(L) 3.3 - 4.4 C [facility] Blood 07/23/2021 7:55 AM EDT 07/23/2021 8:21 AM EDT us Ary Moralez MD LAB BLOOD ORDERABLES Final Result [facility] [address] [place] [address] from Last 3 Months or Most Recently Relevant to Health Maintenance Insurance [facility] MEDEX SUPPLEMENT MEDICARE PART A & B [employer] SUPPLEMENT MEDICARE PART A & B [employer] SUPPLEMENT MEDICARE PART A & B [employer] MEDEX SUPPLEMENT MEDICARE PART A & B [employer] MEDEX SUPPLEMENT MEDICARE PART A & B [facility] MEDEX SUPPLEMENT MEDICARE PART A & B Advance Directives For more information, please contact: [phone] (9AM - 5PM [facility], Monday-Monday) Documents on File Type Date Recorded Patient Roastmaster Expl anation Living Will 05/15/2021 7:58 AM Healthcare Proxy 10/14/2019 10:37 AM * Full Code (Presumed) (Latest Code Status on File) Date Activated Date Inactivated Comments 10/07/2019 2:27 PM 10/10/2019 8:09 PM * Full Code (Presumed) Date Activated Date Inactivated Comments 10/07/2019 6:45 AM 10/07/2019 2:27 PM Care Teams Bowling Ball Assembler Relationship Specialty Start Date End Date Julienne Barber DO [address] [place] [address] 7 [place] [address] PCP - General Family Medicine 03/24/25 Barb Massey CNP [address] [facility] [address] [place] [address] PCP - PRODUCTION MANAGER/PA Co-Delivery Technician Nurse Practitioner 03/24/25 Additional Source Comments The information contained in this document represents components of the legal health record. It is not the complete legal health record.[facility]
--- OUTSIDE RECORDS SUMMARY | 2025-08-26 07:42 | XMS_ITS | Encounter Summary ---
Author Organization [facility] Address [address] [place] [address] Phone Care Team Providers Care Carcass Washer Name Role Phone Barb Massey CNP Primary Care Provider + Julienne Barber DO Primary Care Provider Barb Massey REGISTERED NURSING PROFESSOR Unavailable [phone] Encounter Details Date Type Department Care Team (Late st Contact Info) Description 03/13/2025 Procedure Pass [facility] CT Imaging, [place] [address] [place] [address] Social History Tobacco Use Types Packs/Day Years [...] st Contact Info) Description 08/21/2025 Procedure Pass [facility], Ct Scan - [address] [address] 09/10/2025 7:15 PM EDT Appointment [facility], Ct Scan - [facility] [address] [place] [address] Sarah Colón MD [address] [place] [address] [email or web address] 09/11/2025 9:30 AM EDT Telemedicine [facility] Department of Neurosurgery [address] [place] [address] Ashleigh Hagen NP [address] [place] [address] [email or web address] 12/09/2025 1:00 PM EST Office Visit [facility] [address] [place] [address] Scott Guido DO [address] [place] [address] documented as of this encounter Visit Diagnoses Not on filedocumented in this encounter Additional Health Concerns Infection Onset Date Last Indicated Resolved Time CoV-Risk 03/20/2025 03/20/2025 03/31/2025 1:21 AM EDT Assessment Noted Time PHQ-2 Depression Total Score: 2 12/11/19 4:39 PM EST documented as of this encounter Care Teams Carcass Washer Relationship Specialty Start Date End Date Barb Massey CNP [address] [place] [address] 7 [place] [address] PCP - General Family Medicine 03/10/23 03/23/25 Julienne Barber DO [address] [place] [address] 7 [place] [address] PCP - General Family Medicine 03/24/25 Barb Massey CNP [address] [place] [address], [address] [place] [address] [email or web address] PCP - EGGS INSPECTOR/PA Co-Interlocker Maintainer Nurse Practitioner 03/24/25 documented as of this encounter Additional Source Comments The information contained in this document represents components of the legal health record. It is not the complete legal health record.[facility]
--- OUTSIDE RECORDS SUMMARY | 2025-08-26 07:42 | XMS_ITS | Encounter Summary ---
Author Organization [facility] Address [address] [place] [address] Phone Care Team Providers Care Salvage Laborer Name Role Phone Ary Moralez MD Primary Care Provider [phone] Barb Massey CNP Primary Care Provider + Julienne Barber DO Primary Care Provider Barb Massey ROCK CUTTER Unavailable Encounter Details Date Type Department Care Team (Late st Contact Info) Description 06/30/2022 Procedure Pass [facility], [address] [place] [address] Social History Tobacco Use Types Packs/Day Years [...] work, study, or receive health care? No 03/15/2021 Education Answer Date Recorded Are you interested in help w ith more adult education (for example, completing high school, GED, job training, learning the Cym[place] language, technical skills, or developing parenting skills)? No 03/15/2021 Are you concerned about learning? Not on file 03/15/2021 Not on file 03/15/2021 Not on file 03/15/2021 Food Answer Date Recorded Within the past 6 months we worried whether our food would run out before we got money to buy more. Never True 03/15/2021 Within the past 6 months the food we bought just didn't last and we didn't have enough money to get more. Never True Paying for Meds Answer Date Recorded Do you have trouble paying for medicines? No 03/15/2021 Paying Utility Bills Answer Date Record ed Do you have trouble paying your heating or elect ricity bill? No 03/15/2021 Transportation Answer Date Recorded Has the lack of transportati on kept you from medical appointments or from getting medications? No 03/15/2021 Comments No Sex and Gender Information Value Date Recorded Sex Assigned at Female 11/10/2021 6:21 AM EST Legal Sex Female 6:04 PM EST Gender Identity Female 11/10/2021 6:21 AM EST Sexual Orientation Straight 11/10/2021 6: 21 AM EST documented as of this encounter Last Filed Vital Signs Vital Sign Reading Time Taken Comments Blood Pressure - - Pulse - - Temperature - - Respiratory Rate - - Oxygen Saturation - - Inhaled Oxygen Concentration - - Weight 81.2 kg (179 lb) 07/03/2022 9:41 AM EDT Height 154.9 cm (5' 1 ) 07/03/2022 9:41 AM EDT Body Mass Index 33.82 07/03/2022 9:41 AM EDT documented in this encounter Plan of Treatment Upcoming Encounters Date Type Department Care Team (Late st Contact Info) Description 08/21/2025 Procedure Pass [facility], Ct Scan [address] [address] 09/10/2025 7:15 PM EDT Appointment [address] [address] Sarah Colón MD 60 [place] [address] [email or web address] 09/11/2025 9:30 AM EDT Telemedicine [facility] Department of Neurosurgery [address] [place] [address] Ashleigh Hagen, ALHAJI [address] [place] [address] [email or web address] 12/09/2025 1:00 PM EST Office Visit [facility] [address] [place] [address] Scott Guido DO 22 [place] [address] documented as of this encounter Visit Diagnoses Not on filedocumented in this encounter Additional Health Concerns Infection Onset Date Last Indicated Resolved Time CoV-Risk 01/18/2024 01/18/2024 01/29/2024 1:22 AM EST CoV-Risk 03/20/2025 03/20/2025 03/31/2025 1:21 AM EDT Assessment Noted Time PHQ-2 Depression Total Score: 0 07/17/20 3:36 PM EDT documented as of this encounter Care Teams Salvage Laborer Relationship Specialty Start Date End Date Ary Moralez MD [email or web address] PCP - General Family Medicine 07/22/21 03/09/23 Barb Massey CNP [address] [place] [address] [email or web address] PCP - General Family Medicine 03/10/23 03/23/25 Julienne Barber DO [address] [place] [address] [email or web address] PCP - General Family Medicine 03/24/25 Barb Massey CNP [address] [place] [address] [place] [address] [email or web address] PCP - TIMBER SIZER/PA Co-Tobacco Checkout Clerk Nurse Practitioner 03/24/25 documented as of this encounter Additional Source Comments The information contained in this document represents components of the legal health record. It is not the complete legal health record.[facility]
--- OUTSIDE RECORDS SUMMARY | 2025-08-26 07:42 | XMS_ITS | Encounter Summary ---
Author Organization [facility] Address [address] [place] [address] Phone Care Team Providers Care Global Logistics Analyst Name Role Phone Ary Moralez MD Primary Care Provider Barb Massey COOPERATIVE EXTENSION AGENT Primary Care Provider + Julienne Barber DO Primary Care Provider Barb Massey COOPERATIVE EXTENSION AGENT Unavailable [phone] Encounter Details Date Type Department Care Team (Late st Contact Info) Description 07/22/2021 Transcribe Orders [facility] [address] [place], [place] [id number] Ary Moralez MD [address] [place] [address] [email or web address] Social History Tobacco Use Types Packs/Day Years [...] high school, GED, job training, learning the Maldivian language, technical skills, or developing parenting skills)? [...] Contact Info) Description 08/21/2025 Procedure Pass [address] [address] 09/10/2025 7:15 PM EDT Appointment [address] [address] Sarah Colón MD [address] [place] [address] [email or web address] 09/11/2025 9:30 AM EDT Telemedicine [facility] Department of Neurosurgery [address] [place] [address] Ashleigh Hagen NP [address] [place] [address] [email or web address] 12/09/2025 1:00 PM EST Office Visit [facility] [address] [place] [address] Scott Guido DO [address] [place] [address] documented as of this encounter Visit Diagnoses Not on filedocumented in this encounter Additional Health Concerns Infection Onset Date Last Indicated Resolved Time CoV-Risk 01/18/2024 01/18/2024 01/29/2024 1:22 AM EST CoV-Risk 03/20/2025 03/20/2025 03/31/2025 1:21 AM EDT Assessment Noted Time PHQ-2 Depression Total Score: 0 07/17/20 3:36 PM EDT documented as of this encounter Care Teams Global Logistics Analyst Relationship Specialty Start Date End Date Ary Moralez MD [email or web address] PCP - General Family Medicine 07/22/21 03/09/23 Barb Massey CNP [address] [place] [address] PCP - General Family Medicine 03/10/23 03/23/25 Julienne Barber DO [address] [place] [address] PCP - General Family Medicine 03/24/25 Barb Massey CNP [address] [place] [address] PCP - AUTOMATION AND CONTROLS MANAGER/PA Co-Service Technician Copier Nurse Practitioner 03/24/25 documented as of this encounter Additional Source Comments The information contained in this document represents components of the legal health record. It is not the complete legal health record.[facility]
== END 2025-08-26 07:36 | disposition home or self-care (01) ==
LOC: CF 07:35
PROVIDERS: Visit Provider Anesthesiology
DX: M96.1 Postlaminectomy syndrome, not elsewhere classified (principal); G89.4 Chronic pain syndrome; M48.062 Spinal stenosis, lumbar region with neurogenic claudication
CPT/HCPCS: 62323; J2003

== ENCOUNTER 2025-08-26 09:02 | Outpatient (AMB) | payer MEDICARE, SELFPAY ==
[2025-08-26 09:11] VITALS: BP 146/73; PULSE 63; RESP 18; O2SAT 96
--- NOTE | 2025-08-26 09:11 | A.OFFVIS_ITS ---
Vital Signs 08/26/25 09:11 08/26/25 10:32 Weight 188 lb BP 146/73 H 126/68 Blood Pressure Location Lt brachial Rt brachial Position Sitting Sitting Respiration 18 16 Pulse 63 54 Pulse Source Pulse Oximeter Pulse Oximeter Pulse Oximetry (%) 96 97 Oxygen Delivery Method Room Air Intake Visit Reasons: ITDD Trial with Fentanyl Quiller Machine Fixer Required: No Allergies lobster Allergy (Severe, Verified 06/25/25 11:33) Anaphylaxis hydromorphone Allergy (Verified 06/25/25 12:15) Itching PFSH Medical History Scoliosis Lumbar stenosis Osteoarthritis Post laminectomy syndrome Chronic pain syndrome Sleep apnea Surgical History History of knee replacement History of hysterectomy S/P placement of nerve stimulator History of back surgery Social History Are you a primary ambulatory care coordinator to a significant other at home: No Do you presently have visiting nurse or other home services: No Patient Tobacco Use Status: Former Tobacco user Tobacco use type: Cigarette Years Smoked: quit 35 years ago. started at age 18, 1PPD Second Hand Smoke Exposure: No Physical Exam Vital Signs: Last Vital Signs Pulse 54 08/26/25 10:32 Resp 16 08/26/25 10:32 BP 126/68 08/26/25 10:32 Pulse Ox 97 08/26/25 10:32 Oxygen Delivery Method Room Air 08/26/25 10:32 Assessment & Plan Assessment & Plan (1) Post laminectomy syndrome: Code(s): M96.1 - Postlaminectomy syndrome, not elsewhere classified Category: Medical (2) Chronic pain syndrome: Code(s): G89.4 - Chronic pain syndrome Category: Medical (3) Lumbar stenosis with neurogenic claudication: Code(s): M48.062 - Spinal stenosis, lumbar region with neurogenic claudication Category: Medical Plan Intrathecal pain pump trial fentanyl. ?Informed consent was explained to the patient. All questions were explained and? answered.? The patient was taken inside the operating room where she was positioned prone on the operating table. Time-out was performed delineating correct site, side, the nature of the procedure, patient's allergy, . All operating room staff was participating in OR time-out procedure. ? ? The lower back was prepped with ChloraPrep and draped with sterile towels.? C- arm was brought over the operating field and sq picture of L2 and L3 vertebra were delineated on the screen.? Point of interest was delineated as an inter- laminar space at L2-L3 vertebras. The projection to the skin of the lamina of L3 vertebra on the right as close to spinous process as possible was injected with mixture of lidocaine 2% and ropivacaine 0.5% one-to-one using 25 gauge 1 in needle. After that 22 gauge pencil point needle was inserted through the skin wheal and advanced to the intrathecal space under intermittent anterior posterior and lateral views. When on the lateral view of the tip of the needle was visualized in the center of the spinal canal patient was instructed to cough, the bed was given reverse Trendelenburg positioned. CSF appeared that the needle hub and after that the injection of 20 micro g of preservative-free fentanyl was injected into the intrathecal space. After that needle was withdrawn sterile Band-Aid was applied. Patient tolerated procedure well she was taken outside of the operating room to recovery room where she stayed for 45 minutes flat in supine position. She went home without immidiate side effects.? Orders: Orders FL guidance in treatment room Today G89.4 - Chronic pain syndrome Coding Level of Care Code Procedure Only Diagnoses Post laminectomy syndrome M96.1 Chronic pain syndrome G89.4 Lumbar stenosis with neurogenic claudication M48.062
[2025-08-26 10:32] VITALS: BP 126/68; PULSE 54; RESP 16; O2SAT 97
== END 2025-08-26 10:57 | disposition home or self-care (01) ==
LOC: HO.PMCPRC 09:02
PROVIDERS: PCP Nurse Practitioner Primary Care; Visit Provider Anesthesiology
DX: G89.4 Chronic pain syndrome (principal); M96.1 Postlaminectomy syndrome, not elsewhere classified; M48.062 Spinal stenosis, lumbar region with neurogenic claudication; Z45.1 Encounter for adjustment and management of infusion pump
CPT/HCPCS: 62323

== ENCOUNTER 2025-09-03 11:25 | Outpatient (AMB) | payer MEDICARE, SELFPAY ==
--- NOTE | 2025-09-03 11:35 | MHC.OFFVIS ---
Vital Signs 09/03/25 11:39 Height 5 ft 1 in Weight 186 lb BMI 35.1 BP 138/78 Blood Pressure Location Lt brachial Position Sitting Respiration 16 Pulse 66 Pulse Source Pulse Oximeter Pulse Oximetry (%) 95 Oxygen Delivery Method Room Air Intake Visit Reasons: S/P ITDD Trial with Fentanyl Allergies lobster Allergy (Severe, Verified 06/25/25 11:33) Anaphylaxis hydromorphone Allergy (Verified 06/25/25 12:15) Itching HPI Comments Details: Vaishali is back in my office after fentanyl trial. She reports no pain improvement whatsoever after the injection. She denies any side effects short of very short period of generalized itching no more than 1 hour after the procedure. The itching went away very quickly however the pain according to the patient Corey was relieved. We discussed possibility of further treatment today. I offered the patient a trial with bupivacaine. I also discussed possibility of treating the patient with sprint PNS. She reports intractable pain in the lower back. She reports pain on a regular basis 9 out of 10 with minimal activities. I will diagnose her with intractable low back pain. With this diagnosis I will schedule her for 1st right and after that left sprint PNS trial. If patient will reports significant pain improvement on day 21 after the procedure we will continue the trial for 8 weeks. If this trial will not result in pain improvement we will come back with the idea of bupivacaine pain pump trial. She reported 100% pain improvement on hydromorphone for 24 hours after the procedure however she reported significant generalized itching. She had to administer herself Narcan to stop the itching. She endorses 100% pain relief for at least 24 hours after the procedure. [facility] Medical History Scoliosis Lumbar stenosis Osteoarthritis Post laminectomy syndrome Chronic pain syndrome Sleep apnea Surgical History History of knee replacement History of hysterectomy S/P placement of nerve stimulator History of back surgery Social History Are you a primary child care center assistant director to a significant other at home: No Do you presently have visiting nurse or other home services: No Patient Tobacco Use Status: Former Tobacco user Tobacco use type: Cigarette Years Smoked: quit 35 years ago. started at age 18, 1PPD Second Hand Smoke Exposure: No Review of Systems Const All systems reviewed & are unremarkable except as noted in HPI and below Physical Exam Exam Exam: General: awake, alert, oriented. Answers questions appropriately. Fully engaged in examination. Skin: warm, dry, intact HEENT: Normocephalic. Hearing intact. Cardiac: External chest normal in appearance. Respiratory: No cough, audible wheezing or stridor. Abdomen: without gross distension. MS: No obvious swelling or deformities. Neurological: Oriented to person, place, time and situation. Thought process intact. Ambulates with the use of cane, bent at the waist in a slight forward flexion Psychiatric: Appropriate mood and affect. Good judgment and insight. Vital Signs: Last Vital Signs Pulse 66 09/03/25 11:39 Resp 16 09/03/25 11:39 BP 138/78 09/03/25 11:39 Pulse Ox 95 09/03/25 11:39 Oxygen Delivery Method Room Air 09/03/25 11:39 BMI result Body Mass Index 35.1 Assessment & Plan Assessment & Plan (1) Post laminectomy syndrome: Code(s): M96.1 - Postlaminectomy syndrome, not elsewhere classified Category: Medical (2) Chronic pain syndrome: Code(s): G89.4 - Chronic pain syndrome Category: Medical (3) Lumbar stenosis with neurogenic claudication: Code(s): M48.062 - Spinal stenosis, lumbar region with neurogenic claudication Category: Medical (4) Intractable low back pain: Code(s): M54.59 - Other low back pain Category: Medical (5) Spondylosis of lumbar joint: Code(s): M47.816 - Spondylosis without myelopathy or radiculopathy, lumbar region Category: Medical Plan Patient today reports intractable lower back pain. She reports pain 9/10 with minimal activities. To trials of intrathecal pain pump resulted in not acceptable outcomes. Good pain relief on hydromorphone trial however generalized itching was was susceptible only to Narcan administration. A trial with fentanyl resulted in no pain improvement. With the diagnosis of intractable lower back pain I decided to offer the patient sprint PNS lumbar L4 possible L5 on the right and 2 weeks after on the left. The brochure was given to the patient. We will schedule this patient for the trial. Patient Instructions: I here by testify that I spent 32 minutes in conversation with this patient as well as planning her care and organizing this note. Coding Level of Care Code Est Pt Level 4 ([address]0491) Diagnoses Post laminectomy syndrome M96.1 Chronic pain syndrome G89.4 Lumbar stenosis with neurogenic claudication M48.062 Intractable low back pain M54.59 Spondylosis of lumbar joint M47.816
[2025-09-03 11:39] VITALS: BP 138/78; PULSE 66; RESP 16; O2SAT 95; BMI 35.1
== END 2025-09-03 11:58 | disposition home or self-care (01) ==
LOC: HO.PMC 11:25
PROVIDERS: PCP Nurse Practitioner Primary Care; Visit Provider Anesthesiology
DX: M96.1 Postlaminectomy syndrome, not elsewhere classified (principal); G89.4 Chronic pain syndrome; M48.062 Spinal stenosis, lumbar region with neurogenic claudication; M54.59 Other low back pain; M47.816 Spondylosis without myelopathy or radiculopathy, lumbar region
CPT/HCPCS: 99214

== ENCOUNTER → 2025-09-03 11:25 | Outpatient (BNVA) | payer MEDICARE, SELFPAY | PROVIDERS: PCP Nurse Practitioner Primary Care; Visit Provider Anesthesiology | DX: M96.1 Postlaminectomy syndrome, not elsewhere classified (principal); G89.4 Chronic pain syndrome; M48.062 Spinal stenosis, lumbar region with neurogenic claudication; M47.816 Spondylosis without myelopathy or radiculopathy, lumbar region; M54.59 Other low back pain | CPT/HCPCS: 99212 ==

== ENCOUNTER 2025-10-14 06:29 | Outpatient (REF) | payer MEDICARE, SELFPAY ==
--- NOTE | ~2025-10-14 | FL_ITS ---
EXAMINATION: FL GUIDANCE ONLY HISTORY: M47.816 - Spondylosis without myelopathy or radiculopathy, lumbar region COMPARISON: None available. TECHNIQUE: Fluoroscopy time: 50 seconds. Cumulative Dose: 11.10 mGy. DAP: 179.40 mGycm2 Images: 3. FINDINGS: The endoscopic spot films of the lumbar spine demonstrate placement of an electrode at the L4-5 level on the right. FL/FL guidance in treatment room IMPRESSION: Fluoroscopy during procedure. Please see procedure report for additional information. Electronically signed by: Bakari Molina MD 10/15/2025 07:54 AM EST
== END 2025-10-14 06:30 | disposition home or self-care (01) ==
LOC: CF 06:29
PROVIDERS: Visit Provider Anesthesiology
DX: M47.816 Spondylosis without myelopathy or radiculopathy, lumbar region (principal)
CPT/HCPCS: 64555; 64590; C1778; J2003

== ENCOUNTER 2025-10-14 13:12 | Outpatient (AMB) | payer MEDICARE, SELFPAY ==
[2025-10-14 13:35] VITALS: BP 140/85; PULSE 67; RESP 16; O2SAT 96; BMI 35.1
--- NOTE | 2025-10-14 13:35 | A.OFFVIS_ITS ---
Vital Signs 10/14/25 13:35 10/14/25 14:27 Height 5 ft 1 in Weight 186 lb BMI 35.1 BP 140/85 H 157/86 H Blood Pressure Location Lt brachial Lt brachial Position Sitting Sitting Respiration 16 16 Pulse 67 70 Pulse Source Pulse Oximeter Pulse Oximeter Pulse Oximetry (%) 96 95 Oxygen Delivery Method Room Air Room Air Intake Visit Reasons: Right Sprint PNS L4 Allergies lobster Allergy (Severe, Verified 06/25/25 11:33) Anaphylaxis hydromorphone Allergy (Verified 06/25/25 12:15) Itching PFSH Medical History Scoliosis Lumbar stenosis Osteoarthritis Post laminectomy syndrome Chronic pain syndrome Sleep apnea Surgical History History of knee replacement History of hysterectomy S/P placement of nerve stimulator History of back surgery Social History Are you a primary healthcare marketer to a significant other at home: No Do you presently have visiting nurse or other home services: No Patient Tobacco Use Status: Former Tobacco user Tobacco use type: Cigarette Years Smoked: quit 35 years ago. started at age 18, 1PPD Second Hand Smoke Exposure: No Physical Exam Vital Signs: Last Vital Signs Pulse 70 10/14/25 14:27 Resp 16 10/14/25 14:27 BP 157/86 H 10/14/25 14:27 Pulse Ox 95 10/14/25 14:27 Oxygen Delivery Method Room Air 10/14/25 14:27 BMI result Body Mass Index 35.1 Assessment & Plan Assessment & Plan (1) Spondylosis of lumbar joint: Code(s): M47.816 - Spondylosis without myelopathy or radiculopathy, lumbar region Category: Medical Plan Percutaneous implantation of peripheral nerve stimulation Sprint system right L5 the risks, benefits and alternatives were discussed with the patient and in formed consent was obtained, patient was placed in the prone position and padded to foster comfort. Time out was performed delineating correct site and side of the procedure , name and of the patient, patient participated in time out procedure. The lower back of the patient was prepped with ChloraPrep and draped with sterile self adhesive utility towels. C-arm was brought over the operating field and clear picture of the L4 lamina on the right was delineated on the screen. The upper central portion of the lamina was chosen as a target of the needle tip insertion . After identifying and marking the intended target, the skin around the planned entry point and the subcutaneous tissues were injected with local anesthetic forming skin wheal.. A percutaneous sleeve and stimulating probe lead introduction system were assembled, inserted and advanced through the skin wheal to the point of interest under C-arm viewL right L4 lamina., the introducer needle was delivered to a location in proximity to the nerve. Multiple stimulation parameters were used to deliver stimulation to the nerve in concert with stimulating at multiple positions around the nerve. unfortunately patient reported that at this level her stimulation was above the area of her pain. The positioned was changed for L5 lamina A percutaneous sleeve and stimulating probe lead introduction system were assembled, inserted and advanced through the skin wheal to the point of interest under C-arm viewL right L5 lamina., the introducer needle was delivered to a location in proximity to the nerve. Multiple stimulation parameters were used to deliver stimulation to the nerve in concert with stimulating at multiple positions around the nerve. unfortunately the patient again did not feel any stimulation. Possibility exists that the patient's multifidus to villeda the confluence of the superior articular process of L5 on the right with the transverse process of L5 on the right. Patient reported stimulation appropriate at this level corresponding to the level of the pain. The nerve target acquisition was confirmed noting generation of in the corresponding to the nerve being stimulated. Various electrical parameter combinations were tested, and the lead location was adju sted (physically relocated) until the patient indicated overlapping the distribution of the patient?s typical region of pain. The stimulating probe was removed from the introducer and a percutaneous lead was guided through the needle and delivered to a location in similar proximity to the nerve. Final location was verified with electrical stimulation. The introducer needle was removed, and the exposed end of the percutaneous lead was attached to an external stimulator unit. The nerve target acquisition was confirmed noting generation of in the corresponding to the nerve being stimulated. Various electrical parameter combinations were tested, and the lead location was adjusted (physically relocated) until the patient indicated overlapping the distribution of the patient?s typical region of pain. The stimulating probe was removed from the introducer and a percutaneous lead was guided through the needle and delivered to a location in similar proximity to the nerve. Final location was verified with electrical stimulation. The introducer needle was removed, and the exposed end of the percutaneous lead was attached to an external stimulator unit. At the end of the case various electrical parameter combinations were again tested until the patient indicated paresthesia or muscle tension overlapping the distribution of the patient?s typical region of pain. After confirming that lead impedance was in the normal range, the external unit was detached, the needle was removed, and the lead was anchored at the skin. The leads were threaded into the connector block and electrical continuity and desired patient response was confirmed. The connector block was attached to the external stimulator unit. The site was covered with a sterile occlusive dressing and a image was taken to document final placement. Upon completion of the procedure the patient was taken outside the OR where she recovered uneventfully she went home without immediate complications. Orders: Orders FL guidance in treatment room Today M47.816 - Spondylosis without myelopathy or radiculopathy, lumbar region Coding Level of Care Code Procedure Only Diagnoses Spondylosis of lumbar joint M47.816 Implantable Device Implantable Device Implantable Devices Qty Baseboard Heating Installer Implant Date Expiration Date Analgesic PENS system 1 [employer] 10/14/25 Analgesic spinal cord electrical stimulation system 1 [employer] 11/01/24 04/10/26 Analgesic spinal cord electrical stimulation system 1 [employer] 11/01/24 09/02/26 Analgesic spinal cord electrical stimulation system 1 [employer] 11/01/24 10/02/26 LEAD 50CM LINEAR W/ STEERING 1 11/01/24 03/25/26 LEAD BLUE PERC 50 1 01/17/25 08/27/27
[2025-10-14 14:27] VITALS: BP 157/86; PULSE 70; RESP 16; O2SAT 95
== END 2025-10-14 14:34 | disposition home or self-care (01) ==
LOC: HO.PMCPRC 13:12
PROVIDERS: PCP Nurse Practitioner Primary Care; Visit Provider Anesthesiology
DX: M47.816 Spondylosis without myelopathy or radiculopathy, lumbar region (principal)
CPT/HCPCS: 64555; 64590

== ENCOUNTER 2025-10-22 09:41 | Outpatient (AMB) | payer MEDICARE, SELFPAY ==
[2025-10-22 09:44] VITALS: BP 167/86; PULSE 71; RESP 16; O2SAT 93; BMI 35.5
--- NOTE | 2025-10-22 09:44 | MHC.OFFVIS ---
Vital Signs 10/22/25 09:44 Height 5 ft 1 in Weight 188 lb BMI 35.5 BP 167/86 H Blood Pressure Location Rt brachial Position Sitting Respiration 16 Pulse 71 Pulse Source Pulse Oximeter Pulse Oximetry (%) 93 Oxygen Delivery Method Room Air Intake Visit Reasons: S/P Right Sprint PNS L4 Intake Note: Dressing Change, Site is clean, Looks healthy Realtime Reporter Required: No Accompanied by: Grand Child Allergies lobster Allergy (Severe, Verified 10/22/25 09:56) Anaphylaxis hydromorphone Allergy (Verified 10/22/25 09:56) Itching HPI Comments Details: Sagrario is back in my office after the Sprint PNS L5 implantation on the right side. She was scheduled for this procedure with diagnosis of intractablelower back pain and failure to improve with trials of the intrathecal pain pump trials. No pain relieve with fentanyl trial and side effects with hydromorphone trials. Today she reports very good pain improvement with only right side insertion of the microlead. She is looking forward for the next week system completion. I diagnosed her with intractable back pain. With this diagnosis I will schedule her for 1st right and after that left sprint PNS trial. If patient will reports significant pain improvement on day 21 after the procedure we will continue the trial for 8 weeks. If this trial will not result in pain improvement we will come back with the idea of bupivacaine pain pump trial. She reported 100% pain improvement on hydromorphone for 24 hours after the procedure however she reported significant generalized itching. She had to administer herself Narcan to stop the itching. [facility] Medical History Scoliosis Lumbar stenosis Osteoarthritis Post laminectomy syndrome Chronic pain syndrome Sleep apnea Surgical History History of knee replacement History of hysterectomy S/P placement of nerve stimulator History of back surgery Social History Are you a primary intensive care specialist to a significant other at home: No Do you presently have visiting nurse or other home services: No Patient Tobacco Use Status: Former Tobacco user Tobacco use type: Cigarette Years Smoked: quit 35 years ago. started at age 18, 1PPD Second Hand Smoke Exposure: No Review of Systems Const All systems reviewed & are unremarkable except as noted in HPI and below Physical Exam Exam Exam: General: awake, alert, oriented. Answers questions appropriately. Fully engaged in examination. Skin: warm, dry, intact HEENT: Normocephalic. Hearing intact. Cardiac: External chest normal in appearance. Respiratory: No cough, audible wheezing or stridor. Abdomen: without gross distension. MS: No obvious swelling or deformities. Neurological: Oriented to person, place, time and situation. Thought process intact. Ambulates with the use of cane, bent at the waist in a slight forward flexion Psychiatric: Appropriate mood and affect. Good judgment and insight. Vital Signs: Last Vital Signs Pulse 71 10/22/25 09:44 Resp 16 10/22/25 09:44 BP 167/86 H 10/22/25 09:44 Pulse Ox 93 10/22/25 09:44 Oxygen Delivery Method Room Air 10/22/25 09:44 BMI result Body Mass Index 35.5 Assessment & Plan Assessment & Plan (1) Spondylosis of lumbar joint: Code(s): M47.816 - Spondylosis without myelopathy or radiculopathy, lumbar region Category: Medical (2) Post laminectomy syndrome: Code(s): M96.1 - Postlaminectomy syndrome, not elsewhere classified Category: Medical (3) Chronic pain syndrome: Code(s): G89.4 - Chronic pain syndrome Category: Medical (4) Lumbar stenosis with neurogenic claudication: Code(s): M48.062 - Spinal stenosis, lumbar region with neurogenic claudication Category: Medical (5) Intractable low back pain: Code(s): M54.59 - Other low back pain Category: Medical Plan H/o Postlaminectomy syndrome. Attempt to treat the pain with SCS failed because of very difficult lead placement ending in SCF leak. ITDD trial of hydromorphone - she reported 100% pain relieve but reported also severe itching requiring naloxone administration. A trial of fentanyl resulted in no pain improvement. Trial of Sprint PNS right L5 - already she reports very good pain improvement. Completion of the system in one week. Coding Level of Care Code Est Pt Level 3 (22609) Diagnoses Spondylosis of lumbar joint M47.816 Post laminectomy syndrome M96.1 Chronic pain syndrome G89.4 Lumbar stenosis with neurogenic claudication M48.062 Intractable low back pain M54.59
--- OUTSIDE RECORDS SUMMARY | 2025-10-22 11:02 | XMS_ITS | Encounter Summary ---
Author Organization [facility] Address [address] [place] [address] Phone Care Team Providers Care Biofuels Production Technician Name Role Phone Barb Massey CNP Primary Care Provider + Julienne Barber DO Primary Care Provider [phone] Barb Massey LAMINA SEARCHER Unavailable Encounter Details Date Type Department Care Team (Late st Contact Info) Description 02/14/2025 Procedure Pass [facility] Radiology [address] [place] [address] Social History Tobacco Use Types Packs/Day Years [...] Care Team (Late st Contact Info) Description 09/12/2025 Procedure Pass [facility] CT Imaging, [place] [address] [place] [address] 12/09/2025 1:00 PM EST Office Visit [facility] [address] [place] [address] [place] [address] 03/12/2026 11:45 AM EDT Appointment [facility] CT Imaging, [place] [address] [place] [address] Sarah Colón MD [address] [place] [address] [email or web address] 03/12/2026 12:00 PM EDT Office Visit [facility] Department of Neurosurgery [address] [place] [address] Sarah Colón MD [address] [place] [address] [email or web address] documented as of this encounter Visit Diagnoses Not on filedocumented in this encounter Additional Health Concerns Infection Onset Date Last Indicated Resolved Time CoV-Risk 03/20/2025 03/20/2025 03/31/2025 1:21 AM EDT Assessment Noted Time PHQ-2 Depression Total Score: 2 12/11/19 24 4:39 PM EST documented as of this encounter Care Teams Biofuels Production Technician Relationship Specialty Start Date End Date Barb Massey CNP [address] [place] [id number] PCP - General Family Medicine 03/10/23 03/23/25 Julienne Barber DO [address] [place] [address] 7 [place], [place] [id number] PCP - General Family Medicine 03/24/25 Barb Massey CNP [address] [place] [address] [email or web address] PCP - PRODUCT SAFETY MANAGER/MANN Co-Label Printer Nurse Practitioner 03/24/25 documented as of this encounter Additional Source Comments The information contained in this document represents components of the legal health record. It is not the complete legal health record.[facility]
--- OUTSIDE RECORDS SUMMARY | 2025-10-22 11:02 | XMS_ITS | Encounter Summary ---
Author Organization [facility] Address [address] [place] [address] Phone Care Team Providers Care Cloth Wire Weaver Name Role Phone Aakash Kothari MD Primary Care Provider Ekaterina Ary Dumont MD Primary Care Provider [phone] Barb Massey TIN CONTAINER STRAIGHTENER Primary Care Provider + Julienne Barber DO Primary Care Provider Barb Massey TIN CONTAINER STRAIGHTENER Unavailable [phone] Encounter Details Date Type Department Care Team (Late st Contact Info) Description 09/12/2019 Transcribe Orders [facility] [address] [place] [address] Aakash Kothari MD Social History Tobacco Use [...] st Contact Info) Description 09/12/2025 Procedure Pass [facility] CT Imaging, [place] [address] [place] [address] 12/09/2025 1:00 PM EST Office Visit [facility] [address] [place] [address] Scott Guido DO [address] [place] [address] [email or web address] 03/12/2026 11:45 AM EDT Appointment [facility] CT Imaging, [place] [address] [place] [address] Sarah Colón MD [address] [place] [address] [email or web address] 03/12/2026 12:00 PM EDT Office Visit [facility] Department of Neurosurgery [address] [place] [address] Sarah Colón MD [address] [place] [address] [email or web address] documented as of this encounter Visit Diagnoses Not on filedocumented in this encounter Additional Health Concerns Infection Onset Date Last Indicated Resolved Time CoV-Risk 01/18/2024 01/18/2024 01/29/2024 1:22 AM EST CoV-Risk 03/20/2025 03/20/2025 03/31/2025 1:21 AM EDT documented as of this encounter Care Teams Cloth Wire Weaver Relationship Specialty Start Date End Date Aakash Kothari MD PCP - General Internal Medicine 05/17/19 07/21/21 Ary Moralez MD [email or web address] PCP - General Family Medicine 07/22/21 03/09/23 Barb Massey, MICHAEL [address] [place] [address], [address] [place] [address] PCP - General Family Medicine 03/10/23 03/23/25 Julienne Barber DO [address] [place] [address] 7 [place] [address] [email or web address] PCP - General Family Medicine 03/24/25 Barb Massey CNP [address] [place] [address] 7 [place] [address] [email or web address] PCP - CHEMISTRY TECHNICIAN/PA Co-Livestock Farmworker Nurse Practitioner 03/24/25 documented as of this encounter Additional Source Comments The information contained in this document represents components of the legal health record. It is not the complete legal health record.[facility]
--- OUTSIDE RECORDS SUMMARY | 2025-10-22 11:02 | XMS_ITS | Encounter Summary ---
Author Organization [facility] Address [address] [place] [address] Phone Care Team Providers Care Gold And Silver Assayer Name Role Phone ElisabethChrisJuliennebrenda Mendoza DO Primary Care Provider [phone] Barb Massey SECTION CHIEF Unavailable Encounter Details Date Type Department Care Team (Late st Contact Info) Description 07/14/2025 Procedure Pass [facility] CT Imaging, [place] [address] [place], [place] [id number] Social History Tobacco Use Types Packs/Day Years [...] st Contact Info) Description 09/12/2025 Procedure Pass [facility] CT Imaging, [place] [address] [place] [address] 12/09/2025 1:00 PM EST Office Visit [facility] [address] [place] [address] Scott Guido DO 22 [place] [address] 03/12/2026 11:45 AM EDT Appointment [facility] CT Imaging, [place] [address] [place] [address] Sarah Colón MD 60 [place] [address] [email or web address] 03/12/2026 12:00 PM EDT Office Visit [facility] Department of Neurosurgery [address] [place] [address] Sarah Colón MD [address] [place] [address] [email or web address] documented as of this encounter Visit Diagnoses Not on filedocumented in this encounter Additional Health Concerns Assessment Noted Time PHQ-2 Depression Total Score: 2 08/21/20 11:16 AM EDT documented as of this encounter Care Teams Gold And Silver Assayer Relationship Specialty Start Date End Date Julienne Barber DO [address] [place] [id number] PCP - General Family Medicine 03/24/25 Barb Massey CNP [address] [facility] 7 [place] [address] PCP - SOCIAL MEDIA MARKETING MANAGER/PA Co-Principal Hardware Architect Nurse Practitioner 03/24/25 documented as of this encounter Additional Source Comments The information contained in this document represents components of the legal health record. It is not the complete legal health record.[facility]
--- OUTSIDE RECORDS SUMMARY | 2025-10-22 11:02 | XMS_ITS | Encounter Summary ---
Author Organization [facility] Address [address] [place] [address] Phone Care Team Providers Care Railroad Emergency Services Manager Name Role Phone Barb Massey CNP Primary Care Provider + Julienne Barber DO Primary Care Provider Barb Massey STANDARDS ENGINEER Unavailable [phone] Encounter Details Date Type Department Care Team (Late st Contact Info) Description 02/14/2025 Procedure Pass [facility] CT Imaging, [place] [address] [place] [address] Social History Tobacco Use Types Packs/Day Years [...] Upcoming Encounters Date Type Department Care Team (Den st Contact Info) Description 09/12/2025 Procedure Pass [facility] CT Imaging, [place] [address] [place] [address] 12/09/2025 1:00 PM EST Office Visit [facility] [address] [place] [address] Scott Guido DO 22 [place] [address] 03/12/2026 11:45 AM EDT Appointment [facility] CT Imaging, [place] [address] [place] [address] Sarah Colón MD [address] [place] [address] [email or web address] 03/12/2026 12:00 PM EDT Office Visit [facility] Department of Neurosurgery [address] [place] [address] Sarah Colón MD [address] [place] [address] [email or web address] documented as of this encounter Visit Diagnoses Not on filedocumented in this encounter Additional Health Concerns Infection Onset Date Last Indicated Resolved Time CoV-Risk 03/20/2025 03/20/2025 03/31/2025 1:21 AM EDT Assessment Noted Time PHQ-2 Depression Total Score: 2 12/11/19 4:39 PM EST documented as of this encounter Care Teams Railroad Emergency Services Manager Relationship Specialty Start Date End Date Barb Massey CNP [address] [place] [address] PCP - General Family Medicine 03/10/23 03/23/25 Julienne Barber DO [address] [place] [address] PCP - General Family Medicine 03/24/25 Barb Massey CNP [address] [place] [address] 7 [place] [address] [email or web address] PCP - TIE HACKER/PA Co-Title Assistant Nurse Practitioner 03/24/25 documented as of this encounter Additional Source Comments The information contained in this document represents components of the legal health record. It is not the complete legal health record.[facility]
--- OUTSIDE RECORDS SUMMARY | 2025-10-22 11:02 | XMS_ITS | Encounter Summary ---
Author Organization [facility] Address [address] [place] [address] Phone Care Team Providers Care Speech Language Therapist Name Role Phone Julienne Barber DO Primary Care Provider [phone] Barb Massey CORRESPONDENCE SPECIALIST Unavailable [phone] Encounter Details Date Type Department Care Team (Late st Contact Info) Description 06/12/2025 Procedure Pass [facility], Ct Scan - [address] [address] Social History Tobacco Use Types Packs/Day Years [...] st Contact Info) Description 09/12/2025 Procedure [address] [facility] CT Imaging, [place] [address] [place] [address] 12/09/2025 1:00 PM EST Office Visit [facility] [address] [place] [address] Scott Guido DO 22 [place] [address] 03/12/2026 11:45 AM EDT Appointment [facility] CT Imaging, [place] [address] [place] [address] Sarah Colón MD [address] [place] [address] [email or web address] 03/12/2026 12:00 PM EDT Office Visit [facility] Department of Neurosurgery [address] [place] [address] Sarah Colón MD [address] [place] [address] [email or web address] documented as of this encounter Visit Diagnoses Not on filedocumented in this encounter Additional Health Concerns Assessment Noted Time PHQ-2 Depression Total Score: 2 12/11/19 24 4:39 PM EST documented as of this encounter Care Teams Speech Language Therapist Relationship Specialty Start Date End Date Julienne Barber DO [address] [address] PCP - General Family Medicine 03/24/25 Barb Massey CNP 234 [facility] 7 [place] [address] PCP - RISK COMPLIANCE MANAGER/PA Co-Cigar Bander Nurse Practitioner 03/24/25 documented as of this encounter Additional Source Comments The information contained in this document represents components of the legal health record. It is not the complete legal health record.[facility]
--- OUTSIDE RECORDS SUMMARY | 2025-10-22 11:02 | XMS_ITS | Encounter Summary ---
Author Organization [facility] Address [address] [place] [address] Phone Care Team Providers Care Security Control Room Officer Name Role Phone Barb Massey CNP Primary Care Provider + Julienne Barber DO Primary Care Provider Barb Massey ELECTROSTATIC PAINT OPERATOR Unavailable Encounter Details Date Type Department Care Team (Late st Contact Info) Description 03/06/2025 Procedure Pass [facility]'s Radiology [address] [place] [address] Social History Tobacco Use Types Packs/Day Years [...] Encounters Date Type Department Care Team (Den rivas Contact Info) Description 09/12/2025 Procedure Pass [facility] CT Imaging, [place] [address] [place] [address] 12/09/2025 1:00 PM EST Office Visit [facility] 22 [place] [address] Scott Guido DO 22 [place] [address] 03/12/2026 11:45 AM EDT Appointment [facility] CT Imaging, [place] [address] [place] [address] Sarah Colón MD 60 [place] [address] [email or web address] 03/12/2026 12:00 PM EDT Office Visit [facility] Department of Neurosurgery [address] [place] [address] Sarah Colón MD 60 [place] [address] [email or web address] within [email or web address] du documented as of this encounter Visit Diagnoses Not on filedocumented in this encounter Additional Health Concerns Infection Onset Date Last Indicated Resolved Time CoV-Risk 03/20/2025 03/20/2025 03/31/2025 1:21 AM EDT Assessment Noted Time PHQ-2 Depression Total Score: 2 12/11/19 4:39 PM EST documented as of this encounter Care Teams Security Control Room Officer Relationship Specialty Start Date End Date Barb Massey CNP [address] [place] [address] PCP - General Family Medicine 03/10/23 03/23/25 Julienne Barber DO [address] [place] [address] PCP - General Family Medicine 03/24/25 Barb Massey CNP [address] [place] [address] [email or web address] PCP - GOLF SALES ASSOCIATE/PA Co-Cigar Making Machine Supervisor Nurse Practitioner 03/24/25 documented as of this encounter Additional Source Comments The information contained in this document represents components of the legal health record. It is not the complete legal health record.[facility]
--- OUTSIDE RECORDS SUMMARY | 2025-10-22 11:02 | XMS_ITS | Encounter Summary ---
Author Organization [facility] Address [address] [place] [address] Phone Care Team Providers Care Hammerer Tab Name Role Phone Ary Moralez MD Primary Care Provider Barb Massey WARM IN WORKER Primary Care Provider + Julienne Barber DO Primary Care Provider Barb Massey WARM IN WORKER Unavailable [phone] Encounter Details Date Type Department Care Team (Late st Contact Info) Description 07/22/2021 Transcribe Orders [facility] [address] [place] [address] Ary Moralez MD [address] [place] [address] [email or web address] Social History Tobacco Use Types Packs/Day Years [...] high school, GED, job training, learning the Polish language, technical skills, or developing parenting skills)? [...] st Contact Info) Description 09/12/2025 Procedure Pass [facility] CT Imaging, [place] [address] [place] [address] 12/09/2025 1:00 PM EST Office Visit [facility] [address] [place] [address] Scott Guido DO [address] [place] [address] 03/12/2026 11:45 AM EDT Appointment [facility] CT Imaging, [place] [address] [place] [address] Sarah Colón MD 60 [place] [address] [email or web address] 03/12/2026 12:00 PM EDT Office Visit [facility] Department of Neurosurgery 60 [place] [address] Sarah Colón MD 60 [place] [address] [email or web address] documented as of this encounter Visit Diagnoses Not on filedocumented in this encounter Additional Health Concerns Infection Onset Date Last Indicated Resolved Time CoV-Risk 01/18/2024 01/18/2024 01/29/2024 1:22 AM EST CoV-Risk 03/20/2025 03/20/2025 03/31/2025 1:21 AM EDT Assessment Noted Time PHQ-2 Depression Total Score: 0 07/17/20 3:36 PM EDT documented as of this encounter Care Teams Hammerer Tab Relationship Specialty Start Date End Date Ary Moralez MD [email or web address] PCP - General Family Medicine 07/22/21 03/09/23 Barb Massey CNP [address] [place] [address] [email or web address] PCP - General Family Medicine 03/10/23 03/23/25 Julienne Barber DO [address] [place] [address] [email or web address] PCP - General Family Medicine 03/24/25 Barb Massey CNP [address] [place] [address] [email or web address] PCP - PLATER HELPER/PA Co-Hr Internship Nurse Practitioner 03/24/25 documented as of this encounter Additional Source Comments The information contained in this document represents components of the legal health record. It is not the complete legal health record.[facility]
--- OUTSIDE RECORDS SUMMARY | 2025-10-22 11:02 | XMS_ITS | Encounter Summary ---
Author Organization [facility] Address [address] [place] [address] Phone Care Team Providers Care Handkerchief Maker Name Role Phone Barb Massey CNP Primary Care Provider + Julienne Barber DO Primary Care Provider Barb Massey TRANSVERSE ABDOMINAL MUSCLE NURSE Unavailable Encounter Details Date Type Department Care Team (Late st Contact Info) Description 03/05/2025 Procedure Pass [facility]'s Radiology [address] [place] [address] Social History Tobacco Use Types Packs/Day Years [...] 4:12 PM EDT Domenica Newman RN * [place] Suicide Severity Rating Scale (Screener/Recent Self-Report) Question [...] st Contact Info) Description 09/12/2025 Procedure Pass [facility] CT Imaging, [place] [address] [place] [address] 12/09/2025 1:00 PM EST Office Visit [facility] [address] [place] [address] Scott Guido DO [address] [place] [address] 03/12/2026 11:45 AM EDT Appointment [facility] CT Imaging, [place] [address] [place] [address] Sarah Colón MD [address] [place] [phone] [email or web address] 03/12/2026 12:00 PM EDT Office Visit [facility] Department of Neurosurgery [address] [place] [address] Sarah Colón MD [address] [place] [address] [email or web address] documented as of this encounter Visit Diagnoses Not on filedocumented in this encounter Additional Health Concerns Infection Onset Date Last Indicated Resolved Time CoV-Risk 03/20/2025 03/20/2025 03/31/2025 1:21 AM EDT Assessment Noted Time PHQ-2 Depression Total Score: 2 12/11/19 24 4:39 PM EST documented as of this encounter Care Teams Handkerchief Maker Relationship Specialty Start Date End Date Barb Massey CNP [address] [place] [address], [address] [place] [address] [email or web address] PCP - General Family Medicine 03/10/23 03/23/25 Julienne Barber DO [address] [place] [address], [facility] [address] [place] [address] [email or web address] PCP - General Family Medicine 03/24/25 Barb Massey CNP [address] [place] [address], [facility] 7 [place] [address] [email or web address] PCP - PRECINCT POLICE LIEUTENANT/PA Co-Real Estate Transaction Coordinator Nurse Practitioner 03/24/25 documented as of this encounter Additional Source Comments The information contained in this document represents components of the legal health record. It is not the complete legal health record.[facility]
--- OUTSIDE RECORDS SUMMARY | 2025-10-22 11:02 | XMS_ITS | Encounter Summary ---
Author Organization [facility] Address [address] [place] [address] Phone Care Team Providers Care Cad Cam Programmer Name Role Phone Barb Massey CNP Primary Care Provider + Julienne Barber DO Primary Care Provider [phone] Barb Massey GOLF STUD RIVETER Unavailable Encounter Details Date Type Department Care Team (Late st Contact Info) Description 03/05/2025 Procedure Pass [facility] Periop 75 [place] [address] Social History Tobacco Use Types Packs/Day Years [...] 4:12 PM EDT Domenica Newman RN * [place] Suicide Severity Rating Scale (Screener/Recent Self-Report) Question Answer Date of Assessment Author 1. Wish to be (Past 1 Month) No 03/05/2025 4:12 PM EDT Debbie Cobb, RN 2. Non-Specific Active Suici varsha Thoughts (Past 1 Month) No 03/05/2025 4:12 PM EDT Domenica Cobb, RN 6. Suicidal Behavior (Lifetime) No 4:12 PM EDT Domenica Cobb, CHON documented as of this encounter Plan of Treatment Upcoming Encounters Date Type Department Care Team (Late st Contact Info) Description 09/12/2025 Procedure Pass [facility] CT Imaging, [place] [address] [place] [address] 12/09/2025 1:00 PM EST Office Visit [facility] [address] [place] [address] Scott Guido DO [address] [place] [address] [email or web address] 03/12/2026 11:45 AM EDT Appointment [facility] CT Imaging, [place] [address] [place] [address] Sarah Colón MD [address] [place] [address] [email or web address] 03/12/2026 12:00 PM EDT Office Visit [facility] Department of Neurosurgery [address] [place] [address] Sarah Colón MD [address] [place] [address] [email or web address] documented as of this encounter Visit Diagnoses Not on filedocumented in this encounter Additional Health Concerns Infection Onset Date Last Indicated Resolved Time CoV-Risk 03/20/2025 03/20/2025 03/31/2025 1:21 AM EDT Assessment Noted Time PHQ-2 Depression Total Score: 2 12/11/19 4:39 PM EST documented as of this encounter Care Teams Cad Cam Programmer Relationship Specialty Start Date End Date Barb Massey, GOLF STUD RIVETER [address] [place] [address], [address] [place] [address] [email or web address] PCP - General Family Medicine 03/10/23 03/23/25 Julienne Barber DO [address] [place] [address], [facility] 7 [place] [address] [email or web address] PCP - General Family Medicine 03/24/25 Barb Massey CNP [address] [place] [address], [address] [place] [address] [email or web address] PCP - PRINCIPAL ELECTRICAL ENGINEER/PA Co-Personnel Quality Assurance Auditor Nurse Practitioner 03/24/25 documented as of this encounter Additional Source Comments The information contained in this document represents components of the legal health record. It is not the complete legal health record.[facility]
--- OUTSIDE RECORDS SUMMARY | 2025-10-22 11:02 | XMS_ITS | Encounter Summary ---
Author Organization [facility] Address [address] [place] [address] Phone Care Team Providers Care Manager Business Development Hospice Name Role Phone Julienne Barber DO Primary Care Provider Barb Massey EXTRACTOR OPERATOR HELPER Unavailable Encounter Details Date Type Department Care Team (Late st Contact Info) Description 08/21/2025 Procedure Pass [facility], Ct Scan - [address] [address] Social History Tobacco Use Types Packs/Day Years [...] st Contact Info) Description 09/12/2025 Procedure Pass [facility] CT Imaging, [place] [address] [place] [address] 12/09/2025 1:00 PM EST Office Visit [facility] [address] [place] [address] Scott Guido DO 22 [place] [address] 03/12/2026 11:45 AM EDT Appointment [facility] CT Imaging, [place] [address] [place] [address] Sarah Colón MD 60 [place] [address] [email or web address] 03/12/2026 12:00 PM EDT Office Visit [facility] Department of Neurosurgery 60 [place] [address] Sarah Colón MD 60 [place] [address] [email or web address] documented as of this encounter Visit Diagnoses Not on filedocumented in this encounter Additional Health Concerns Assessment Noted Time PHQ-2 Depression Total Score: 2 08/21/20 11:16 AM EDT documented as of this encounter Care Teams Manager Business Development Hospice Relationship Specialty Start Date End Date Julienne Barber DO [address] [address] PCP - General Family Medicine 03/24/25 Barb Massey CNP [address] [address] PCP - MUD ANALYSIS OPERATOR/PA Co-Senior Design Engineer Nurse Practitioner 03/24/25 documented as of this encounter Additional Source Comments The information contained in this document represents components of the legal health record. It is not the complete legal health record.[facility]
--- OUTSIDE RECORDS SUMMARY | 2025-10-22 11:02 | XMS_ITS | Encounter Summary ---
Author Organization [facility] Address [address] [place] [address] Phone Care Team Providers Care Consumer Relations Complaint Clerk Name Role Phone Aakash Kothari MD Primary Care Provider Ekaterina Ary Dumont MD Primary Care Provider [phone] Barb Massey CNP Primary Care Provider + Julienne Barber DO Primary Care Provider Barb Massey PHARMACEUTICAL ASSISTANT Unavailable Encounter Details Date Type Department Care Team (Late st Contact Info) Description 10/07/2019 Procedure Pass [place] Admitting Dept - [facility] Department [address] [place] [address] Social History Tobacco Use Types Packs/Day Years [...] st Contact Info) Description 09/12/2025 Procedure Pass [facility] CT Imaging, [place] [address] [place] [address] 12/09/2025 1:00 PM EST Office Visit [facility] 22 [place] [address] Scott Guido DO 22 [place] [address] [email or web address] 03/12/2026 11:45 AM EDT Appointment [facility] CT Imaging, [place] [address] [place] [address] Sarah Colón MD [address] [place] [address] [email or web address] 03/12/2026 12:00 PM EDT Office Visit [facility] Department of Neurosurgery [address] [place] [address] Sarah Colón MD 60 [place] [address] [email or web address] documented as of this encounter Visit Diagnoses Not on filedocumented in this encounter Additional Health Concerns Infection Onset Date Last Indicated Resolved Time CoV-Risk 01/18/2024 01/18/2024 01/29/2024 1:22 AM EST CoV-Risk 03/20/2025 03/20/2025 03/31/2025 1:21 AM EDT documented as of this encounter Care Teams Consumer Relations Complaint Clerk Relationship Specialty Start Date End Date Aakash Kothari MD PCP - General Internal Medicine 05/17/19 07/21/21 Ary Moralez MD [email or web address] PCP - General Family Medicine 07/22/21 03/09/23 Barb Massey, MICHAEL [address] [place] [address] 7 [place] [address] [email or web address] PCP - General Family Medicine 03/10/23 03/23/25 Julienne Barber DO [address] [place] [address], [facility] 7 [place] [address] [email or web address] PCP - General Family Medicine 03/24/25 Barb Massey CNP [address] [place] [address], [facility] 7 [place] [address] [email or web address] PCP - IMPLEMENTATION ARCHITECT/MANN Co-Product Development Nurse Practitioner 03/24/25 documented as of this encounter Additional Source Comments The information contained in this document represents components of the legal health record. It is not the complete legal health record.[facility]
--- OUTSIDE RECORDS SUMMARY | 2025-10-22 11:03 | XMS_ITS | Encounter Summary ---
Author Organization [facility] Address [address] [place] [address] Phone Care Team Providers Care Environmental Planning Engineer Name Role Phone Barb Massey CNP Primary Care Provider + Julienne Barber DO Primary Care Provider [phone] Barb Massey DEBONER Unavailable Encounter Details Date Type Department Care Team (Late st Contact Info) Description 12/02/2024 Procedure Pass [address] [place] [address] Social History Tobacco Use Types Packs/Day Years [...] st Contact Info) Description 09/12/2025 Procedure Pass [facility] CT Imaging, [place] [address] [place] [address] 12/09/2025 1:00 PM EST Office Visit [facility] 22 [place] [address] Scott Guido DO 22 [place] [address] 03/12/2026 11:45 AM EDT Appointment [facility] CT Imaging, [place] [address] [place] [address] Sarah Colón MD 60 [place] [address] [email or web address] 03/12/2026 12:00 PM EDT Office Visit [facility] Department of Neurosurgery [address] [place] [address] Sarah Colón MD 60 [place] [address] [email or web address] documented as of this encounter Visit Diagnoses Not on filedocumented in this encounter Additional Health Concerns Infection Onset Date Last Indicated Resolved Time CoV-Risk 03/20/2025 03/20/2025 03/31/2025 1:21 AM EDT Assessment Noted Time PHQ-2 Depression Total Score: 2 12/11/19 4:39 PM EST documented as of this encounter Care Teams Environmental Planning Engineer Relationship Specialty Start Date End Date Barb Massey CNP [address] [place] [address] PCP - General Family Medicine 03/10/23 03/23/25 Julienne Barber DO [address] [place] [address] PCP - General Family Medicine 03/24/25 Barb Massey CNP [address] [place] [address], [place] [address] [email or web address] PCP - PUBLIC SERVICE OFFICER/PA Co-Delivery Merchandiser Nurse Practitioner 03/24/25 documented as of this encounter Additional Source Comments The information contained in this document represents components of the legal health record. It is not the complete legal health record.[facility]
--- OUTSIDE RECORDS SUMMARY | 2025-10-22 11:03 | XMS_ITS | Clinical Summary ---
Author Organization [facility] Address [address] [address] [place] [address] Phone Care Team Providers Care Advice Line Rn Name Role Phone Elisabeth Julienne Mendoza DO Primary Care Provider [phone] Barb Massey FRANKFURTER INSPECTOR Unavailable [phone] Allergies Active Allergy Reactions Criticality Noted Date [...] g vaginally 2 (two) times a week. 4 Active denosumab (PROLIA) 60 mg/mL Syrg subcutaneous syringe Inject 60 mg under the skin once. Active sertraline (ZOLOFT) 100 MG tablet TAKE 1 TABLET(100 MG) BY MOUTH DAILY 30 tablet 11 Active Active Problems Problem Noted Date Diagnosed Date [...] priors. Malaise and fatigue 03/29/2024 Age-related osteoporosis wit hout current pathological fracture 03/29/2024 Assessment & Plan [...] a DXA scan to be done at [facility]. I have given the patient information [...] surgery. Recommended to start Prolia. -Refer to ice grinder for Prolia initiation and management. Tremor 03/29/2024 [...] physiological contributors to fatigue. -Consider referral to [facility] for short-term medication management. Assessment & [...] and a referral was placed to see [facility] to discuss. History of uterine cancer 03/15/2021 Overview (03/15/2021): 02/12 Stage 1 [facility] Gluten free diet 03/15/2021 History of total knee replacement, bilateral 09/2019 Bilateral knee pain 04/12/2019 CATHLEEN (obstructive sleep apnea) Overview (02/21/2025): CPAP Normal pressure hydrocephalus Resolved Problems Problem Noted Date Diagnosed Date Resolved Date Postmenopausal bleeding 10/06/202209/27 Hand injury, right, initial encounter 04/12/2019 01/27/2025 Bilateral primary osteoarthritis of knee 04/12/2019 07/22/2021 Primary osteoarthritis of right knee 07/22/2021 Primary osteoarthritis of left knee 07/22/2021 Encounters Date Type Department Care Team Description 09/12/2025 9:00 AM EDT Telemedicine [facility] Department of Neurosurgery [address] [place] [address] Ashleigh Hagen NP Normal pressure hydrocephalus (Primary Dx); Presence of programmable ventriculoperitoneal shunt 09/12/2025 Orders Only [facility] Department of Neurosurgery [address] [place] [address] DavidLizabethJulienne Normal pressure hydrocephalus (Primary Dx) 09/10/2025 7:04 PM EDT - 09/10/2025 11:59 PM EDT Hospital Encounter [address] [address] Sarah Colón MD Discharge Disposition: Home or Self Care 08/21/2025 11:00 AM EDT Office Visit [facility] Department of Neurosurgery [address] [place] [address] Ashleigh Hagen NP Normal pressure hydrocephalus (Primary Dx); Presence of programmable ventriculoperitoneal shunt 08/21/2025 10:29 AM EDT - 08/21/2025 11:59 PM EDT Hospital Encounter [facility] CT Imaging, [address] [place] [address] Sarah Colón MD Discharge Disposition: Home or Self Care 08/21/2025 Procedure Pass [address] [address] 08/21/2025 Orders Only [facility] Department of Neurosurgery [address] [place] [address] DavidJulienne bone Normal pressure hydrocephalus (Primary Dx) 07/30/2025 Refill [facility] [address] [place] [address] Jessica Zaldivar CNP Medication Refill 07/14/2025 Procedure Pass [facility] CT Imaging, [address] [place] [address] from Last 3 Months Immunizations Immunization Administration Dates Next Due COVID-19 (Pre-09/18) Pfizer Vaccine, mRNA, PF 01/18/2021,12/27/2020 Influenza High-Dose Quadriva lent Preservative Free IM 10/25/2022 Influenza Quadrivalent Adjuv anted Preservative Free IM 09/07/2021 Influenza Quadrivalent w/ Pr eservative IM 10/19/2020 Influenza, Unspecified Formulation 11/13/2009(De fabienne: Patient Decision) Pneumococcal conjugate PCV13 10/07/2019(Deferred : Patient Refused) Pneumococcal polysaccharide PPSV23 11/13/2009(Santamaria: Patient Decision) Td (adult),2 Lf Tetanus Toxo [...] st Contact Info) Description 09/12/2025 Procedure Pass [facility] CT Imaging, [address] [place] [address] 12/09/2025 1:00 PM EST Office Visit [facility] [address] [place] [address] Scott Guido DO [address] [place] [address] 03/12/2026 11:45 AM EDT Appointment [facility] CT Imaging, [address] [place] [address] Sarah Colón MD [address] [place] [address] [email or web address] 03/12/2026 12:00 PM EDT Office Visit [facility] Department of Neurosurgery [address] [place] [address] Sarah Colón MD [address] [place] [address] [email or web address] Maintenance Due Date Last Done Comments PNEUMOCOCCAL VACCINES (50+ years) (1 of 2 - PCV) 1966 ZOSTER VACCINES (1 of 2) 1966 RSV VACCINE (1 - 1-dose 75+ series) 2022 INFLUENZA VACCINE (#1) 2025 2, 09/07/2021, 10/19/2020 COVID-19 VACCINE ( - 2024- season) 2025 10/25/2022, 09/07/2021, 01/18/2021, Additional history [...] this topic Medical Devices Implanted Type Area Combat Control Device Identifier Shelf Expiration Date Model / Serial / Lot Valve Shunt 120cm Hakim Micro Programmable [place] Unitized - [id number] Implanted:Qty: 1 on 03/05/2025 by Sarah Colón MD at [facility] STANDARD Right: Cranial INTEGRA PinterestCINodePing TIMA [id number] / / Cement Bone Biomet Standard R 1x40 Us - [id number] Implanted:Qty: 2 on 10/07/2019 by Waldo Chow MD at [facility] Left: Knee MARITZA / DIV OF Cryoport SQUExTractApps 07/27/2023 [id number] / / [id number] Button Patella 34x8.5mm Knee Vanguard Uhmwpe Single Peg Series A Standard - [id number] Implanted:Qty: 1 on 10/07/2019 by Waldo Chow MD at [facility] Right: Knee [employer] 08/26/2024 [id number] / / [id number] Cement Bone Biomet Standard R 1x40 Us - [id number] Implanted:Qty: 2 on 10/07/2019 by Waldo Chow MD at [facility] Right: Knee MARITZA / DIV OF BRISTOL SQUIBB 07/27/2023 [id number] / / [id number] Tray Beam 67mm Tibial Primary Vanguard [place] I Revision Interlock Cemented - [id number] Implanted:Qty: 1 on 10/07/2019 by Waldo Chow MD at [facility] Left: Knee [employer] 05/23/2028 [id number] / / [id number] Knee Implant 62.5mm Component Femoral Vanguard Interlok [place] Cruciate Retaining Cemented Left - [id number] Implanted:Qty: 1 on 10/07/2019 by Waldo Chow MD at [facility] Left: Knee [employer] 07/11/2029 [id number] / / [id number] Button Patella 34x8.5mm Knee Vanguard Uhmwpe Single Peg Series A Standard - [id number] Implanted:Qty: 1 on 10/07/2019 by Waldo Chow MD at [facility] Left: Knee [employer] 08/26/2024 [id number] / / [id number] Knee Bearing 63 [id number] Tibial Vanguard Polyethylene Cruciate Retaining Lipped - [id number] Implanted:Qty: 1 on 10/07/2019 by Waldo Chow MD at [facility] Left: Knee [employer] 07/04/2024 [id number] / / [id number] Knee Implant 65.0mm Component Femoral Vanguard Interlok [place] Cruciate Retaining Cemented Right - [id number] Implanted:Qty: 1 on 10/07/2019 by Waldo Chow MD at [facility] Right: Knee [employer] 05/26/2029 [id number] / / [id number] Knee Bearing 63 [id number] Tibial Vanguard Polyethylene Cruciate Retaining Lipped - [id number] Implanted:Qty: 1 on 10/07/2019 by Waldo Chow MD at [facility] Right: Knee [employer] 08/03/2021 [id number] / / [id number] Tray Beam 67mm Tibial Primary Vanguard [place] I Revision Interlock Cemented - [id number] Implanted:Qty: 1 on 10/07/2019 by Waldo Chow MD at [facility] Right: Knee [employer] 09/04/2028 [id number] / / [id number] Procedures Procedure Name Priority Date/Time Associated Diagnosis Comments CT HEAD WITHOUT CONTRAST Routine 09/10/2025 7:17 PM EDT Normal pressure hydrocephalus CT HEAD WITHOUT CONTRAST Routine 08/21/2025 10:41 AM EDT Normal pressure hydrocephalus BD DXA [...] Maintenance Results * CT HEAD WITHOUT CONTRAST (09/10/2025 7:17 PM EDT) Anatomical Region Laterality Modality Head Computed Tomogra phy 09/11/2025 7:38 AM EDT Impressions 09/11/2025 7:45 AM EDT Status post ventriculostomy with the tip of the shunt tube in the left frontal horn. No change of the sizes of the ventricular system. No acute intracranial findings. Narrative 09/11/2025 7:[address] HEAD WITHOUT CONTRAST Referring clinician's provided indication for this examination in [facility]: * Hydrocephalus TECHNIQUE: Multidetector-row CT of the head was performed without intravenous contrast using tailored dose modulation techniques. Images were reconstructed in the axial, coronal, and sagittal planes. COMPARISON: Multiple priors, most recent on 08/21/2025. FINDINGS: Brain Parenchyma: No midline shift, mass effect, parenchymal hemorrhage, or evidence of acute territorial infarct. There are areas of hypodensity in the periventricular white matter, likely a manifestation of chronic small vessel disease. Ventricular System and Extra-Axial Spaces: The ventricles and sulci are prominent. No extra-axial fluid collections. Basilar cisterns are patent. Status post ventriculostomy with a right parietal approach of the catheter which transverses through the right lateral ventricle with its tip in the left frontal horn, stable in position as compared to the prior study Osseous and Extracranial Structures: A small mucous retention cyst is seen in the right maxillary sinus. No orbital abnormality. Procedure Note Patrick Laird MD, MSc - 09/11/2025 CT HEAD WITHOUT CONTRAST Referring clinician's provided indication for this examination in [facility]: *Hydrocephalus TECHNIQUE: Multidetector-row CT of the head was performed withoutintravenous contrast using tailored dose modulation techniques. Imageswere reconstructed in the axial, coronal, and sagittal planes. COMPARISON: Multiple priors, most recent on 08/21/2025. FINDINGS: Brain Parenchyma: No midline shift, mass effect, parenchymal hemorrhage,or evidence of acute territorial infarct. There are areas of hypodensityin the periventricular white matter, likely a manifestation of chronicsmall vessel disease. Ventricular System and Extra-Axial Spaces: The ventricles and sulci areprominent. No extra-axial fluid collections. Basilar cisterns are patent.Status post ventriculostomy with a right parietal approach of the catheterwhich transverses through the right lateral ventricle with its tip in theleft frontal horn, stable in position as compared to the prior study Osseous and Extracranial Structures: A small mucous retention cyst is seenin the right maxillary sinus. No orbital abnormality. IMPRESSION: Status post ventriculostomy with the tip of the shunt tube in the leftfrontal horn. No change of the sizes of the ventricular system. No acute intracranial findings. us Sarah Colón MD IMG CT HEAD/NECK Final Resu lt * CT HEAD WITHOUT CONTRAST (08/21/2025 10:41 [...] sinus disease. No orbital abnormality. Procedure Note Yuniel Reynaldo Tammie DO - 08/21/2025 CT HEAD WITHOUT CONTRAST [...] Region Laterality Modality Bone Density Bone Density Scott Guido DO IMG BD BONE DENSITY DEXA Final R esult * Hepatitis C antibody, qualitative (07/23/2021 7:55 AM EDT) [facility] HCV NON-REACTIV E NON-REACTI VE [facility] Blood 07/23/2021 7:55 AM EDT 07/23/2021 8:21 AM EDT Ary Moralez MD LAB BLOOD BKR ORDERABLES Fi nal Result [facility] [address] [place] [address] * (ABNORMAL) Lipid panel (07/23/2021 7:55 AM EDT) HDL 77 mg/dL [facility] Comment: Interpretation <40 mg/dL: Low HDL cholesterol (major risk factor for CHD) Greater than or equal to 60 mg/dL: High HDL cholesterol ( negative risk factor for CHD) HDL - cholesterol is affected by a number of factors, e.g. smoking, excerise, hormones, sex and age. CHOLESTEROL 204 0 - 240 mg/dL [facility] TRIGLYCERIDES 80 30 - 160 mg/dL [facility] LDL 111 50 - 129 mg/dL [facility] Comment: LDL levels in terms of risk for coronary heart disease: <100 mg/dL: Optimal 100-129 mg/dL: Near or above optimal 130-159 mg/dL: Borderline high 160-189 mg/dL: High >190 mg/dL: Very High CARDIAC RISK RATIO 2.6(L) 3.3 - 4.4 C [facility] Blood 07/23/2021 7:55 AM EDT 07/23/2021 8:21 AM EDT us Ary Moralez MD LAB BLOOD BKR ORDERABLES Fi nal Result [facility] [address] [place] [address] from Last 3 Months or Most Recently Relevant to Health Maintenance Insurance [facility] MEDEX SUPPLEMENT MEDICARE PART A & B Member Subscriber Plan / Payer (Ef fective 2012-) Name:Sagrario Alfonso Giorgi Member ID:[id number] Relation to Subscriber:Self Name:Sagrario Alfonso Subscriber ID:[id number] Payer ID:[id number] Group ID:Not on file Type:Medicare Address: [facility] [employer] [facility] [address] [employer] MEDEX SUPPLEMENT MEDICARE PART A & B [employer] MEDEX SUPPLEMENT MEDICARE PART A & B [facility] MEDEX SUPPLEMENT MEDICARE PART A & B [employer] MEDEX SUPPLEMENT MEDICARE PART A & B [id number] MEDEX SUPPLEMENT MEDICARE PART A & B Advance Directives For more information, please contact: [phone] (9AM - 5PM [facility], Monday-Monday) Documents on File Type Date Recorded Patient Vascular Physician Expl anation Living Will 05/15/2021 7:58 AM Healthcare Proxy 10/14/2019 10:37 AM * Full Code (Presumed) (Latest Code Status on File) Date Activated Date Inactivated Comments 10/07/2019 2:27 PM 10/10/2019 8:09 PM * Full Code (Presumed) Date Activated Date Inactivated Comments 10/07/2019 6:45 AM 10/07/2019 2:27 PM Care Teams Advice Line Rn Relationship Specialty Start Date End Date Julienne Barber DO [address] [place] [address], [address] [place] [address] PCP - General Family Medicine 4/28/25 Barb Massey CNP [address] [place] [address], [address] [place] [address] [email or web address] PCP - HOME HEALTH NURSE/MANN Co-Retail Business Development Manager Nurse Practitioner 03/24/25 Additional Source Comments The information contained in this document represents components of the legal health record. It is not the complete legal health record.[facility]
--- OUTSIDE RECORDS SUMMARY | 2025-10-22 11:03 | XMS_ITS | Encounter Summary ---
Author Organization [facility] Address [address] [place] [address] Phone Care Team Providers Care Cut Off Machine Unloader Name Role Phone Barb Massey CNP Primary Care Provider + Julienne Barber DO Primary Care Provider Barb Massey PRODUCT DEVELOPMENT COORDINATOR Unavailable Encounter Details Date Type Department Care Team (Late st Contact Info) Description 03/05/2024 Procedure Pass [facility], Ct Scan - [address] [address] Social History Tobacco Use Types Packs/Day Years [...] housing situation today? I have maxime sing 12/11/2023 How many times have you move [...] st Contact Info) Description 09/12/[address] [facility] CT Imaging, [address] [place] [address] 12/09/2025 1:00 PM EST Office Visit [facility] [address] [place] [address] [place] [address] Scott Guido DO [address] [place] [address] 03/12/2026 11:[address] [facility] CT Imaging, [address] [place] [address] Sarah Colón MD [address] [place] [address] [email or web address] 03/12/2026 12:00 PM EDT Office Visit [facility] Department of Neurosurgery [address] [place] [address] Sarah Colón MD [address] [place] [address] [email or web address] documented as of this encounter Visit Diagnoses Not on filedocumented in this encounter Additional Health Concerns Infection Onset Date Last Indicated Resolved Time CoV-Risk 03/20/2025 03/20/2025 03/31/2025 1:21 AM EDT Assessment Noted Time PHQ-2 Depression Total Score: 2 12/11/19 4:39 PM EST documented as of this encounter Care Teams Cut Off Machine Unloader Relationship Specialty Start Date End Date Barb Massey CNP [address] [place] [address] PCP - General Family Medicine 03/10/23 03/23/25 Julienne Barber DO [address] [place] [address] PCP - General Family Medicine 03/24/25 Barb Massey CNP [address] [place] [address] PCP - REAL ESTATE DEVELOPER/PA Co-Liberal Arts And Humanities Chair Nurse Practitioner 03/24/25 documented as of this encounter Additional Source Comments The information contained in this document represents components of the legal health record. It is not the complete legal health record.[facility]
--- OUTSIDE RECORDS SUMMARY | 2025-10-22 11:03 | XMS_ITS | Continuity of Care Document ---
Author Organization [facility] Address [address] [place], [place] Phone [phone] Social History Type Date Description Comments Sex Female Sex Unknown Allergies and adverse reactions Active Allergies Criticality Reaction Severity Comments Date Shellfish-Derived Products Unable to assess criticality 03/08/2024 Dairy Unable to assess criticality 03/08/2024
--- OUTSIDE RECORDS SUMMARY | 2025-10-22 11:03 | XMS_ITS | Encounter Summary ---
Author Organization [facility] Address [address] [place] [address] Phone Care Team Providers Care Washtub Worker Helper Name Role Phone Barb Massey CNP Primary Care Provider + Julienne Barber DO Primary Care Provider Barb Massey HEAVY MACHINERY OPERATOR Unavailable Encounter Details Date Type Department Care Team (Late st Contact Info) Description 03/05/2024 Procedure Pass [address] [place] [address] Social History Tobacco Use Types Packs/Day Years [...] st Contact Info) Description 09/12/2025 Procedure Pass [facility] CT Imaging, [address] [place] [address] 12/09/2025 1:00 PM EST Office Visit [facility] [address] [place] [address] [place] [address] Scott Guido DO [address] [place] [address] 03/12/2026 11:45 AM EDT Appointment [facility] CT Imaging, [address] [place] [address] Sarah Colón MD [address] [place] [address] [email or web address] 03/12/2026 12:00 PM EDT Office Visit [facility] Department of Neurosurgery [address] [place] [address] Sarah Colón MD [address] [place] [address] [email or web address] documented as of this encounter Visit Diagnoses Not on filedocumented in this encounter Additional Health Concerns Infection Onset Date Last Indicated Resolved Time CoV-Risk 03/20/2025 03/20/2025 03/31/2025 1:21 AM EDT Assessment Noted Time PHQ-2 Depression Total Score: 2 12/11/19 4:39 PM EST documented as of this encounter Care Teams Washtub Worker Helper Relationship Specialty Start Date End Date Barb Massey CNP [address] [place] [address] PCP - General Family Medicine 03/10/23 03/23/25 Julienne Barber DO [address] [place] [address] PCP - General Family Medicine 03/24/25 Barb Massey CNP [address] [place] [address] PCP - ASSEMBLER/PA Co-Information Clerk Brokerage Nurse Practitioner 03/24/25 documented as of this encounter Additional Source Comments The information contained in this document represents components of the legal health record. It is not the complete legal health record.[facility]
--- OUTSIDE RECORDS SUMMARY | 2025-10-22 11:03 | XMS_ITS | Encounter Summary ---
Author Organization [facility] Address [address] [place] [address] Phone Care Team Providers Care Business Leader Name Role Phone Barb Massey CNP Primary Care Provider + Julienne Barber DO Primary Care Provider Barb Massey PUTTY TINTER MAKER Unavailable Encounter Details Date Type Department Care Team (Late st Contact Info) Description 03/13/2025 Procedure Pass [facility] CT Imaging, [place] [place] [address] Social History Tobacco Use Types Packs/Day Years [...] st Contact Info) Description 09/12/2025 Procedure Pass [facility] CT Imaging, [place] [address] [place] [address] 12/09/2025 1:00 PM EST Office Visit [facility] [address] [place] [address] Scott Guido DO [address] [place] [address] 03/12/2026 11:45 AM EDT Appointment [facility] CT Imaging, [address] [place] [address] Sarah Colón MD [address] [place] [address] [email or web address] 03/12/2026 12:00 PM EDT Office Visit [facility] Department of Neurosurgery [address] [place] [address] Sarah Colón MD [address] [place] [address] [email or web address] documented as of this encounter Visit Diagnoses Not on filedocumented in this encounter Additional Health Concerns Infection Onset Date Last Indicated Resolved Time CoV-Risk 03/20/2025 03/20/2025 03/31/2025 1:21 AM EDT Assessment Noted Time PHQ-2 Depression Total Score: 2 12/11/19 4:39 PM EST documented as of this encounter Care Teams Business Leader Relationship Specialty Start Date End Date Barb Massey CNP [address] [place] [address] PCP - General Family Medicine 03/10/23 03/23/25 Julienne Barber DO [address] [place] [address] PCP - General Family Medicine 03/24/25 Barb Massey CNP [address] [place] [address] [address] [place] [address] [email or web address] PCP - GREENHOUSE TRANSPLANTER/PA Co-Fish And Wildlife Biologist Nurse Practitioner 03/24/25 documented as of this encounter Additional Source Comments The information contained in this document represents components of the legal health record. It is not the complete legal health record.[facility]
== END 2025-10-22 10:06 | disposition home or self-care (01) ==
LOC: HO.PMC 09:42
PROVIDERS: PCP Nurse Practitioner Primary Care; Visit Provider Anesthesiology
DX: M47.816 Spondylosis without myelopathy or radiculopathy, lumbar region (principal); M96.1 Postlaminectomy syndrome, not elsewhere classified; G89.4 Chronic pain syndrome; M48.062 Spinal stenosis, lumbar region with neurogenic claudication; M54.59 Other low back pain
CPT/HCPCS: 99024

== ENCOUNTER → 2025-10-22 09:41 | Outpatient (BNVA) | payer MEDICARE, SELFPAY | PROVIDERS: PCP Nurse Practitioner Primary Care; Visit Provider Anesthesiology | DX: Z48.01 Encounter for change or removal of surgical wound dressing (principal); Z96.82 Presence of neurostimulator; G89.4 Chronic pain syndrome; M96.1 Postlaminectomy syndrome, not elsewhere classified; M47.816 Spondylosis without myelopathy or radiculopathy, lumbar region; M48.062 Spinal stenosis, lumbar region with neurogenic claudication; M54.59 Other low back pain | CPT/HCPCS: 99212 ==

== ENCOUNTER 2025-10-28 06:51 | Outpatient (REF) | payer MEDICARE, SELFPAY ==
--- NOTE | ~2025-10-28 | FL_ITS ---
EXAMINATION: FLUOROSCOPY GUIDANCE FOR NEEDLE PLACEMENT CLINICAL INFORMATION: M47.816 - Spondylosis without myelopathy or radiculopathy, lumbar region COMPARISON: Previous fluoroscopy exam October 14, 2025 TECHNIQUE: Fluoroscopic guidance provided for pain management procedure. FINDINGS: 2 fluoroscopic images submitted. There is a lead instrument followed by wire projecting over the left lower lumbar spine. There is a wire projecting over the right lower lumbar spine. See procedure note for detailed findings. FLUOROSCOPY TIME: 15 seconds DOSE AREA PRODUCT: [id number] mGy-cm2 FL/FL guidance in treatment room IMPRESSION: Fluoroscopy guidance for pain management procedure Electronically signed by: Mickie Torrez MD 10/28/2025 01:12 PM [facility]
--- OUTSIDE RECORDS SUMMARY | 2025-10-28 06:54 | XMS_ITS | Encounter Summary ---
Author Organization [facility] Address [address] [place] [address] Phone Care Team Providers Care Java Android Developer Name Role Phone Barb Massey CNP Primary Care Provider + Julienne Barber DO Primary Care Provider [phone] Barb Massey ACCOUNT ADVISOR Unavailable Encounter Details Date Type Department Care Team (Late st Contact Info) Description 02/14/2025 Procedure Pass [facility] Radiology [address] [place] [address] Social History Tobacco Use Types Packs/Day Years [...] st Contact Info) Description 09/12/2025 Procedure Pass [facility] CT Imaging, [place] [address] [place] [address] 12/09/2025 1:00 PM EST Office Visit [facility] [address] [place] [address] [place] [address] 03/12/2026 11:45 AM EDT Appointment [facility] CT Imaging, [address] [place] [address] Sarah Colón MD 60 [place] [address] [email or web address] 03/12/2026 12:00 PM EDT Office Visit [facility] Department of Neurosurgery [address] [place] [address] Sarah Colón MD 60 [place] [address] [email or web address] documented as of this encounter Visit Diagnoses Not on filedocumented in this encounter Additional Health Concerns Infection Onset Date Last Indicated Resolved Time CoV-Risk 03/20/2025 03/20/2025 03/31/2025 1:21 AM EDT Assessment Noted Time PHQ-2 Depression Total Score: 2 12/11/19 24 4:39 PM EST documented as of this encounter Care Teams Java Android Developer Relationship Specialty Start Date End Date Barb Massey CNP [address] [place] [address] PCP - General Family Medicine 03/10/23 03/23/25 Julienne Barber DO [address] [place] [address] 7 [place], [place] [id number] PCP - General Family Medicine 03/24/25 Barb Massey CNP [address] [place] [address] [email or web address] PCP - CINDER PIT WORKER/MANN Co-Director Global Sales Nurse Practitioner 03/24/25 documented as of this encounter Additional Source Comments The information contained in this document represents components of the legal health record. It is not the complete legal health record.[facility]
--- OUTSIDE RECORDS SUMMARY | 2025-10-28 06:54 | XMS_ITS | Encounter Summary ---
Author Organization [facility] Address [address] [place] [address] Phone Care Team Providers Care High Scaler Name Role Phone Barb Massey CNP Primary Care Provider + Julienne Barber DO Primary Care Provider Barb Massey PHOTOGRAPHER SCIENTIFIC Unavailable [phone] Encounter Details Date Type Department Care Team (Late st Contact Info) Description 03/05/2025 Procedure Pass [facility]'s Radiology [address] [place] [address] Social History Tobacco Use Types Packs/Day Years [...] 4:12 PM EDT Domenica Newman RN * [place] Suicide Severity Rating Scale (Screener/Recent Self-Report) Question [...] st Contact Info) Description 09/12/2025 Procedure Pass [facility] CT Imaging, [place] [place] [address] 12/09/2025 1:00 PM EST Office Visit [facility] [address] [place] [address] Scott Guido DO [address] [place] [phone] 03/12/2026 11:45 AM EDT Appointment [facility] CT Imaging, [address] [place] [address] Sarah Colón MD [address] [place] [phone] [email or web address] 03/12/2026 12:00 PM EDT Office Visit [facility] Department of Neurosurgery 60 [place] [address] Sarah Colón MD [address] [place] [phone] [email or web address] documented as of this encounter Visit Diagnoses Not on filedocumented in this encounter Additional Health Concerns Infection Onset Date Last Indicated Resolved Time CoV-Risk 03/20/2025 03/20/2025 03/31/2025 1:21 AM EDT Assessment Noted Time PHQ-2 Depression Total Score: 2 12/11/19 24 4:39 PM EST documented as of this encounter Care Teams High Scaler Relationship Specialty Start Date End Date Barb Massey CNP [address] [place] [address], [address] [place] [address] [email or web address] PCP - General Family Medicine 03/10/23 03/23/25 Julienne Barber DO [address] [place] [address], [facility] 7 [place] [address] [email or web address] PCP - General Family Medicine 03/24/25 Barb Massey CNP [address] [place] [address], [facility] 7 [place] [address] [email or web address] PCP - ROUTE RELIEF DRIVER/PA Co-Parking Attendant Nurse Practitioner 03/24/25 documented as of this encounter Additional Source Comments The information contained in this document represents components of the legal health record. It is not the complete legal health record.[facility]
--- OUTSIDE RECORDS SUMMARY | 2025-10-28 06:54 | XMS_ITS | Encounter Summary ---
Author Organization [facility] Address [address] [place] [address] Phone Care Team Providers Care Marina Dry Dock Manager Name Role Phone Ary Moralez MD Primary Care Provider [phone] Barb Massey CNP Primary Care Provider + Julienne Barber DO Primary Care Provider [phone] Barb Massey KENNEL OPERATOR Unavailable [phone] Encounter Details Date Type Department Care Team (Late st Contact Info) Description 06/30/2022 Procedure Pass [facility], [address] [place] [address] Social History Tobacco Use Types Packs/Day Years [...] high school, GED, job training, learning the [place] language, technical skills, or developing parenting skills)? [...] st Contact Info) Description 09/12/2025 Procedure Pass [facility] CT Imaging, [address] [place] [address] 12/09/2025 1:00 PM EST Office Visit [facility] [address] [place] [address] Scott Guido DO [address] [place] [address] 03/12/2026 11:45 AM EDT Appointment [facility] CT Imaging, [address] [place] [address] Sarah Colón MD 60 [place] [address] [email or web address] 03/12/2026 12:00 PM EDT Office Visit [facility] Department of Neurosurgery 60 [place] [address] Sarah Colón MD 60 [place] [address] [email or web address] documented as of this encounter Visit Diagnoses Not on filedocumented in this encounter Additional Health Concerns Infection Onset Date Last Indicated Resolved Time CoV-Risk 01/18/2024 01/18/2024 01/29/2024 1:22 AM EST CoV-Risk 03/20/2025 03/20/2025 03/31/2025 1:21 AM EDT Assessment Noted Time PHQ-2 Depression Total Score: 0 07/17/20 3:36 PM EDT documented as of this encounter Care Teams Marina Dry Dock Manager Relationship Specialty Start Date End Date Ary Moralez MD [email or web address] PCP - General Family Medicine 07/22/21 03/09/23 Barb Massey CNP [address] [place] [address] [email or web address] PCP - General Family Medicine 03/10/23 03/23/25 Julienne Barber DO [address] [place] [address] 7 [place] [address] [email or web address] PCP - General Family Medicine 03/24/25 Barb Massey CNP [address] [place] [address] 7 [place] [address] [email or web address] PCP - HEAD UP OPERATOR HELPER/PA Co-Continuous Drier Helper Nurse Practitioner 03/24/25 documented as of this encounter Additional Source Comments The information contained in this document represents components of the legal health record. It is not the complete legal health record.[facility]
--- OUTSIDE RECORDS SUMMARY | 2025-10-28 06:54 | XMS_ITS | Encounter Summary ---
Author Organization [facility] Address [address] [place] [address] Phone Care Team Providers Care Bunker Worker Name Role Phone ElisabethChrisJuliennebrenda Mendoza DO Primary Care Provider [phone] Barb Massey ELECTROENCEPHALOGRAPH TECHNOLOGIST Unavailable [phone] Encounter Details Date Type Department Care Team (Late st Contact Info) Description 07/14/2025 Procedure Pass [facility] CT Imaging, [place] [address] [place] [address] Social History Tobacco Use Types Packs/Day Years [...] st Contact Info) Description 09/12/2025 Procedure Pass [facility] CT Imaging, [place] [address] [place] [address] 12/09/2025 1:00 PM EST Office Visit [facility] [address] [place] [address] Scott Guido DO 22 [place] [address] 03/12/2026 11:45 AM EDT Appointment [facility] CT Imaging, [address] [place] [address] Sarah Colón MD 60 [place] [address] [email or web address] 03/12/2026 12:00 PM EDT Office Visit [facility] Department of Neurosurgery [address] [place] [address] Sarah Colón MD 60 [place] [address] [email or web address] documented as of this encounter Visit Diagnoses Not on filedocumented in this encounter Additional Health Concerns Assessment Noted Time PHQ-2 Depression Total Score: 2 08/21/20 11:16 AM EDT documented as of this encounter Care Teams Bunker Worker Relationship Specialty Start Date End Date Julienne Barber DO [address] [place] [address] PCP - General Family Medicine 03/24/25 Barb Massey CNP [address] [facility] 7 [place] [address] PCP - PAI GOW MANAGER/PA Co-Carpenter Supervisor Wooden Ship Nurse Practitioner 03/24/25 documented as of this encounter Additional Source Comments The information contained in this document represents components of the legal health record. It is not the complete legal health record.[facility]
--- OUTSIDE RECORDS SUMMARY | 2025-10-28 06:54 | XMS_ITS | Encounter Summary ---
Author Organization [facility] Address [address] [place] [address] Phone Care Team Providers Care Funeral Director Name Role Phone Aakash Kothari MD Primary Care Provider Ekaterina Ary Dumont MD Primary Care Provider [phone] Barb Massey CNP Primary Care Provider + Julienne Barber DO Primary Care Provider Barb Massey PIECE HAND Unavailable Encounter Details Date Type Department Care Team (Late st Contact Info) Description 10/07/2019 Procedure Pass [place] Admitting Dept - [facility] Department [address] [place] [address] Social History Tobacco Use Types Packs/Day Years [...] st Contact Info) Description 09/12/2025 Procedure Pass [facility] CT Imaging, [place] [place] [address] 12/09/2025 1:00 PM EST Office Visit [facility] 22 [place] [address] Scott Guido DO 22 [place] [address] [email or web address] 03/12/2026 11:45 AM EDT Appointment [facility] CT Imaging, [place] [place] [address] Sarah Colón MD [address] [place] [phone] [email or web address] 03/12/2026 12:00 PM EDT Office Visit [facility] Department of Neurosurgery 60 [place] [address] Sarah Colón MD 60 [place] [address] [email or web address] documented as of this encounter Visit Diagnoses Not on filedocumented in this encounter Additional Health Concerns Infection Onset Date Last Indicated Resolved Time CoV-Risk 01/18/2024 01/18/2024 01/29/2024 1:22 AM EST CoV-Risk 03/20/2025 03/20/2025 03/31/2025 1:21 AM EDT documented as of this encounter Care Teams Funeral Director Relationship Specialty Start Date End Date Aakash Kothari MD PCP - General Internal Medicine 05/17/19 07/21/21 Ary Moralez MD [email or web address] PCP - General Family Medicine 07/22/21 03/09/23 Barb Massey, MICHAEL [address] [place] [address] 7 [place] [address] [email or web address] PCP - General Family Medicine 03/10/23 03/23/25 Julienne Barber DO [address] [place] [address], [facility] 7 [place] [address] [email or web address] PCP - General Family Medicine 03/24/25 Barb Massye CNP [address] [place] [address], [facility] 7 [place] [address] [email or web address] PCP - EXPORT SALES ASSISTANT/MANN Co-Retail Wireless Associate Nurse Practitioner 03/24/25 documented as of this encounter Additional Source Comments The information contained in this document represents components of the legal health record. It is not the complete legal health record.[facility]
--- OUTSIDE RECORDS SUMMARY | 2025-10-28 06:54 | XMS_ITS | Encounter Summary ---
Author Organization [facility] Address [address] [place] [address] Phone Care Team Providers Care Correctional Guard Name Role Phone Barb Massey CNP Primary Care Provider + Julienne Barber DO Primary Care Provider Barb Massey CAR INSTALLATIONS SUPERVISOR Unavailable Encounter Details Date Type Department Care Team (Late st Contact Info) Description 03/13/2025 Procedure Pass [facility] CT Imaging, [place] [address] [place] [address] Social History Tobacco Use Types Packs/Day Years [...] st Contact Info) Description 09/12/2025 Procedure Pass [facility] CT Imaging, [place] [address] [place] [address] 12/09/2025 1:00 PM EST Office Visit [facility] [address] [place] [address] Scott Guido DO 22 [place] [address] 03/12/2026 11:45 AM EDT Appointment [facility] CT Imaging, [place] [address] [place] [address] Sarah Colón MD 60 [place] [address] [email or web address] 03/12/2026 12:00 PM EDT Office Visit [facility] Department of Neurosurgery [address] [place] [address] Sarah Colón MD 60 [place] [address] [email or web address] documented as of this encounter Visit Diagnoses Not on filedocumented in this encounter Additional Health Concerns Infection Onset Date Last Indicated Resolved Time CoV-Risk 03/20/2025 03/20/2025 03/31/2025 1:21 AM EDT Assessment Noted Time PHQ-2 Depression Total Score: 2 12/11/19 4:39 PM EST documented as of this encounter Care Teams Correctional Guard Relationship Specialty Start Date End Date Barb Massey CNP [address] [place] [address] PCP - General Family Medicine 03/10/23 03/23/25 Julienne Barber DO [address] [place] [address] PCP - General Family Medicine 03/24/25 Barb Massey CNP [address] [place] [address] 7 [place] [address] [email or web address] PCP - ENGINE SPECIALIST/PA Co-Well Site Drilling Engineer Nurse Practitioner 03/24/25 documented as of this encounter Additional Source Comments The information contained in this document represents components of the legal health record. It is not the complete legal health record.[facility]
--- OUTSIDE RECORDS SUMMARY | 2025-10-28 06:54 | XMS_ITS | Clinical Summary ---
Author Organization [facility] Address [address] [place] [address] Phone Care Team Providers Care Crystal Slicer Name Role Phone Elisabeth Julienne Mendoza DO Primary Care Provider [phone] Barb Massey INTERNET MARKETING CONSULTANT Unavailable Allergies Active Allergy Reactions Criticality Noted [...] a DXA scan to be done at [facility]. I have given the patient information on [...] surgery. Recommended to start Prolia. -Refer to event marketing assistant for Prolia initiation and management. Tremor 03/29/2024 [...] physiological contributors to fatigue. -Consider referral to [facility] for short-term medication management. Assessment & [...] and a referral was placed to see [facility] to discuss. History of uterine cancer 03/15/2021 Overview (03/15/2021): 02/[address] [facility] Gluten free diet 03/15/2021 History of [...] Team Description 09/12/2025 9:00 AM EDT Telemedicine [facility] Department of Neurosurgery [address] [place] [address] Ashleigh Hagen NP Normal pressure hydrocephalus (Primary Dx); Presence of programmable ventriculoperitoneal shunt 09/12/2025 Orders Only [facility] Department of Neurosurgery [address] [place] [address] DavidLizabethJulienne Normal pressure hydrocephalus (Primary Dx) 09/10/2025 7:04 PM EDT - 09/10/2025 11:59 PM EDT Hospital Encounter [address] [address] Sarah Colón MD Discharge Disposition: Home or Self Care 08/21/2025 11:00 AM EDT Office Visit [facility] Department of Neurosurgery [address] [place] [address] Ashleigh Hagen NP Normal pressure hydrocephalus (Primary Dx); Presence of programmable ventriculoperitoneal shunt 08/21/2025 10:29 AM EDT - 08/21/2025 11:59 PM EDT Hospital Encounter [facility] CT Imaging, [place] [address] [place] [address] Sarah Colón MD Discharge Disposition: Home or Self Care 08/21/2025 Procedure Pass [address] [address] 08/21/2025 Orders Only [facility] Department of Neurosurgery [address] [place] [address] DavidJulienne bone Normal pressure hydrocephalus (Primary Dx) 07/30/2025 Refill [facility] [address] [place] [address] Jessica Zaldivar CNP Medication Refill 07/14/2025 Procedure Pass [facility] CT Imaging, [place] [address] [place] [address] from Last 3 Months Immunizations Immunization Administration [...] st Contact Info) Description 09/12/2025 Procedure Pass [facility] CT Imaging, [place] [address] [place] [address] 12/09/2025 1:00 PM EST Office Visit [facility] [address] [place] [address] Scott Guido DO [address] [place] [address] 03/12/2026 11:45 AM EDT Appointment [facility] CT Imaging, [place] [address] [place] [address] Sraah Colón MD [address] [place] [address] [email or web address] 03/12/2026 12:00 PM EDT Office Visit [facility] Department of Neurosurgery [address] [place] [address] Sarah Colón MD [address] [place] [address] [email or web address] Health Maintenance Due Date Last Done [...] this topic Medical Devices Implanted Type Area Barkeeper Device Identifier Shelf Expiration Date Model / Serial / Lot Valve Shunt 120cm Hakim Micro Programmable [place] Unitized - [id number] Implanted:Qty: 1 on 03/05/2025 by Sarah Colón MD at [facility] STANDARD Right: Cranial INTEGRA QuantumCIAyi Laile TIMA [id number] / / Cement Bone Biomet Standard R 1x40 Us - [id number] Implanted:Qty: 2 on 10/07/2019 by Waldo Chow MD at [facility] Left: Knee MARITZA / DIV OF TESARO SQUEner[employer]ors 07/27/2023 [id number] / / [id number] Button Patella 34x8.5mm Knee Vanguard Uhmwpe Single Peg Series A Standard - [id number] Implanted:Qty: 1 on 10/07/2019 by Waldo Chow MD at [facility] Right: Knee [employer] 08/26/2024 [id number] / / [id number] Cement Bone Biomet Standard R 1x40 Us - [id number] Implanted:Qty: 2 on 10/07/2019 by Waldo Chow MD at [facility] Right: Knee MARITZA / DIV OF BRISTOL SQUIBB 07/27/2023 [id number] / / [id number] Tray Beam 67mm Tibial Primary Vanguard Stratford I Revision Interlock Cemented - [id number] Implanted:Qty: 1 on 10/07/2019 by Waldo Chow MD at [facility] Left: Knee [employer] 05/23/2028 [id number] / / [id number] Knee Implant 62.5mm Component Femoral Vanguard Interlok Stratford Cruciate Retaining Cemented Left - [id number] Implanted:Qty: 1 on 10/07/2019 by Waldo Chow MD at [facility] Left: Knee [employer] 07/11/2029 [id number] / / [id number] Button Patella 34x8.5mm Knee Vanguard Uhmwpe Single Peg Series A Standard - [id number] Implanted:Qty: 1 on 10/07/2019 by Waldo Chow MD at [facility] Left: Knee [employer] 08/26/2024 [id number] / / [id number] Knee Bearing 63 [id number] Tibial Vanguard Polyethylene Cruciate Retaining Lipped - [id number] Implanted:Qty: 1 on 10/07/2019 by Waldo Chow MD at [facility] Left: Knee [employer] 07/04/2024 [id number] / / [id number] Knee Implant 65.0mm Component Femoral Vanguard Interlok Stratford Cruciate Retaining Cemented Right - [id number] Implanted:Qty: 1 on 10/07/2019 by Waldo Chow MD at [facility] Right: Knee [employer] 05/26/2029 [id number] / / [id number] Knee Bearing 63 [id number] Tibial Vanguard Polyethylene Cruciate Retaining Lipped - [id number] Implanted:Qty: 1 on 10/07/2019 by Waldo Chow MD at [facility] Right: Knee [employer] 08/03/2021 [id number] / / [id number] Tray Beam 67mm Tibial Primary Vanguard Stratford I Revision Interlock Cemented - [id number] Implanted:Qty: 1 on 10/07/2019 by Waldo Chow MD at [facility] Right: Knee [employer] 09/04/2028 [id number] / / [id number] Procedures Procedure Name Priority Date/Time Associated Diagnosis [...] clinician's provided indication for this examination in [facility]: * Hydrocephalus TECHNIQUE: Multidetector-row CT of the [...] clinician's provided indication for this examination in [facility]: *Hydrocephalus TECHNIQUE: Multidetector-row CT of the head [...] C antibody, qualitative (07/23/2021 7:55 AM EDT) [facility] HCV NON-REACTIV E NON-REACTI VE [facility] Blood 07/23/2021 7:55 AM EDT 07/23/2021 8:21 AM EDT Ary Moralez MD LAB BLOOD BKR ORDERABLES Fi nal Result [facility] [address] [place] [address] * (ABNORMAL) Lipid panel (07/23/2021 7:55 AM EDT) HDL 77 mg/dL [facility] Comment: Interpretation <40 mg/dL: Low HDL cholesterol (major risk factor for CHD) Greater than or equal to 60 mg/dL: High HDL cholesterol ( negative risk factor for CHD) HDL - cholesterol is affected by a number of factors, e.g. smoking, excerise, hormones, sex and age. CHOLESTEROL 204 0 - 240 mg/dL [facility] TRIGLYCERIDES 80 30 - 160 mg/dL [facility] LDL 111 50 - 129 mg/dL [facility] Comment: LDL levels in terms of risk for coronary heart disease: <100 mg/dL: Optimal 100-129 mg/dL: Near or above optimal 130-159 mg/dL: Borderline high 160-189 mg/dL: High >190 mg/dL: Very High CARDIAC RISK RATIO 2.6(L) 3.3 - 4.4 [facility] Blood 07/23/2021 7:55 AM EDT 07/23/2021 8:21 AM EDT us Ary Moralez MD LAB BLOOD BKR ORDERABLES Fi nal Result [facility] [address] [place] [address] from Last 3 Months or Most Recently Relevant to Health Maintenance Insurance [facility] MEDEX SUPPLEMENT MEDICARE PART A & B Member Subscriber Plan / Payer (Ef fective 2012-) Name:Sagrario Alfonso Giorgi Member ID:[id number] Relation to Subscriber:Self Name:Sagrario Alfonso Subscriber ID:[id number] Payer ID:[id number] Group ID:Not on file Type:Medicare Address: [facility] [employer] [facility] [address] [employer] MEDEX SUPPLEMENT MEDICARE PART A & B [employer] MEDEX SUPPLEMENT MEDICARE PART A & B [facility] MEDEX SUPPLEMENT MEDICARE PART A & B [employer]UE [employer] MEDEX SUPPLEMENT MEDICARE PART A & B Digital Reasoning CROSS MEDEX SUPPLEMENT MEDICARE PART A & B Advance Directives For more information, please contact: [phone] (9AM - 5PM [place], Monday-Monday) Documents on File Type Date Recorded Patient Career Development Director Expl anation Living Will 05/15/2021 7:58 AM Healthcare Proxy 10/14/2019 10:37 AM * Full Code (Presumed) (Latest Code Status on File) Date Activated Date Inactivated Comments 10/07/2019 2:27 PM 10/10/2019 8:09 PM * Full Code (Presumed) Date Activated Date Inactivated Comments 10/07/2019 6:45 AM 10/07/2019 2:27 PM Care Teams Crystal Slicer Relationship Specialty Start Date End Date Julienne Barber DO [address] [place] [address], [address] [place] [address] PCP - General Family Medicine 4/28/25 Barb Massey CNP [address] [place] [address], [address] [place] [address] [email or web address] PCP - ACCOUNTS RECEIVABLE CLERK/MANN Co-Post Acute Care Nurse Practitioner Nurse Practitioner 03/24/25 Additional Source Comments The information contained in this document represents components of the legal health record. It is not the complete legal health record.[facility]
--- OUTSIDE RECORDS SUMMARY | 2025-10-28 06:54 | XMS_ITS | Encounter Summary ---
Author Organization [facility] Address [address] [place] [address] Phone Care Team Providers Care Regulatory Compliance Specialist Name Role Phone Aakash Kothari MD Primary Care Provider Ekaterina Ary Dumont MD Primary Care Provider [phone] Barb Massey ELECTROLYSIS INVESTIGATOR Primary Care Provider + Julienne Barber DO Primary Care Provider [phone] Barb Massey ELECTROLYSIS INVESTIGATOR Unavailable Encounter Details Date Type Department Care Team (Late st Contact Info) Description 09/12/2019 Transcribe Orders [facility] [address] [place] [address] Aakash Kothari MD Social History Tobacco Use [...] st Contact Info) Description 09/12/2025 Procedure Pass [facility] CT Imaging, [place] [address] [place] [address] 12/09/2025 1:00 PM EST Office Visit [facility] [address] [place] [address] Scott Guido DO [address] [place] [address] [email or web address] 03/12/2026 11:45 AM EDT Appointment [facility] CT Imaging, [place] [address] [place] [address] Sarah Colón MD [address] [place] [address] [email or web address] 03/12/2026 12:00 PM EDT Office Visit [facility] Department of Neurosurgery [address] [place] [address] Sarah Colón MD [address] [place] [address] [email or web address] documented as of this encounter Visit Diagnoses Not on filedocumented in this encounter Additional Health Concerns Infection Onset Date Last Indicated Resolved Time CoV-Risk 01/18/2024 01/18/2024 01/29/2024 1:22 AM EST CoV-Risk 03/20/2025 03/20/2025 03/31/2025 1:21 AM EDT documented as of this encounter Care Teams Regulatory Compliance Specialist Relationship Specialty Start Date End Date Aakash Kothari MD PCP - General Internal Medicine 05/17/19 07/21/21 Ary Moralez MD [email or web address] PCP - General Family Medicine 07/22/21 03/09/23 Barb Massey, MICHAEL [address] [place] [address], [address] [place] [address] PCP - General Family Medicine 03/10/23 03/23/25 Julienne Barber DO [address] [place] [address] [address] [place] [address] [email or web address] PCP - General Family Medicine 03/24/25 Barb Massey CNP [address] [place] [address] 7 [place] [address] [email or web address] PCP - COKE DRAWER HAND/PA Co-Genetic Engineer Nurse Practitioner 03/24/25 documented as of this encounter Additional Source Comments The information contained in this document represents components of the legal health record. It is not the complete legal health record.[facility]
--- OUTSIDE RECORDS SUMMARY | 2025-10-28 06:54 | XMS_ITS | Encounter Summary ---
Author Organization [facility] Address [address] [place] [address] Phone Care Team Providers Care Lens Molder Name Role Phone Barb Massey CNP Primary Care Provider + Julienne Barber DO Primary Care Provider [phone] Barb Massey RELINER Unavailable [phone] Encounter Details Date Type Department Care Team (Late st Contact Info) Description 03/06/2025 Procedure Pass [facility] [address] [place] [address] Social History Tobacco Use Types Packs/Day Years [...] rivas Contact Info) Description 09/12/2025 Procedure Pass [facility] CT Imaging, [place] [address] [place] [address] 12/09/2025 1:00 PM EST Office Visit [facility] [address] [place] [address] Scott Guido DO 22 [place] [address] 03/12/2026 11:45 AM EDT Appointment [facility] CT Imaging, [place] [address] [place] [address] Sarah Colón MD 60 [place] [address] [email or web address] 03/12/2026 12:00 PM EDT Office Visit [facility] Department of Neurosurgery [address] [place] [address] Sarah Colón MD [address] [place] [address] [email or web address] documented as of this encounter Visit Diagnoses Not on filedocumented in this encounter Additional Health Concerns Infection Onset Date Last Indicated Resolved Time CoV-Risk 03/20/2025 03/20/2025 03/31/2025 1:21 AM EDT Assessment Noted Time PHQ-2 Depression Total Score: 2 12/11/19 4:39 PM EST documented as of this encounter Care Teams Lens Molder Relationship Specialty Start Date End Date Barb Massey CNP [address] [place] [address] PCP - General Family Medicine 03/10/23 03/23/25 Julienne Barber DO [address] [place] [address] PCP - General Family Medicine 03/24/25 Barb Massey CNP [address] [place] [address] [email or web address] PCP - TURNER AND FORMER AUTOMATIC/PA Co-Sawmill Manager Nurse Practitioner 03/24/25 documented as of this encounter Additional Source Comments The information contained in this document represents components of the legal health record. It is not the complete legal health record.[facility]
--- OUTSIDE RECORDS SUMMARY | 2025-10-28 06:54 | XMS_ITS | Encounter Summary ---
Author Organization [facility] Address [address] [facility] [address] [place] [address] Phone Care Team Providers Care Lang Interpreter Name Role Phone Ary Moralez MD Primary Care Provider [phone] Barb Massey THIRD RIGGER Primary Care Provider + Julienne Barber DO Primary Care Provider [phone] Barb Massey THIRD RIGGER Unavailable Encounter Details Date Type Department Care Team (Late st Contact Info) Description 07/22/2021 Transcribe Orders [facility] [address] [place] [address] Ary Moralez MD [address] [place] [address] [email or web address] Social History Tobacco Use Types Packs/Day Years [...] high school, GED, job training, learning the [place] language, technical skills, or developing parenting skills)? [...] st Contact Info) Description 09/12/2025 Procedure Pass [facility] CT Imaging, [place] [address] [place] [address] 12/09/2025 1:00 PM EST Office Visit [facility] [address] [place] [address] Scott Guido DO [address] [place] [address] 03/12/2026 11:45 AM EDT Appointment [facility] CT Imaging, [place] [address] [place] [address] Sarah Colón MD 60 [place] [address] [email or web address] 03/12/2026 12:00 PM EDT Office Visit [facility] Department of Neurosurgery [address] [place] [address] Sarah Colón MD 60 [place] [address] [email or web address] documented as of this encounter Visit Diagnoses Not on filedocumented in this encounter Additional Health Concerns Infection Onset Date Last Indicated Resolved Time CoV-Risk 01/18/2024 01/18/2024 01/29/2024 1:22 AM EST CoV-Risk 03/20/2025 03/20/2025 03/31/2025 1:21 AM EDT Assessment Noted Time PHQ-2 Depression Total Score: 0 07/17/20 3:36 PM EDT documented as of this encounter Care Teams Lang Interpreter Relationship Specialty Start Date End Date Ary Moralez MD [email or web address] PCP - General Family Medicine 07/22/21 03/09/23 Barb Massey CNP [address] [place] [address] [email or web address] PCP - General Family Medicine 03/10/23 03/23/25 Julienne Barber DO [address] [place] [address] [email or web address] PCP - General Family Medicine 03/24/25 Barb Massey CNP [address] [place] [address] [email or web address] PCP - FAMILY PRESERVATION OFFICER/PA Co-Metal Mockup Maker Nurse Practitioner 03/24/25 documented as of this encounter Additional Source Comments The information contained in this document represents components of the legal health record. It is not the complete legal health record.[facility]
--- OUTSIDE RECORDS SUMMARY | 2025-10-28 06:54 | XMS_ITS | Encounter Summary ---
Author Organization [facility] Address [address] [facility] [address] [place] [address] Phone Care Team Providers Care Manager Books Name Role Phone Julienne Barber DO Primary Care Provider Barb Massey COMMERCIAL CREDIT ANALYST Unavailable [phone] Encounter Details Date Type Department Care Team (Late st Contact Info) Description 06/12/2025 Procedure Pass [facility], Ct Scan - [address] [address] Social History Tobacco Use Types Packs/Day Years [...] st Contact Info) Description 09/12/2025 Procedure Pass [facility] CT Imaging, [place] [address] [place] [address] 12/09/2025 1:00 PM EST Office Visit [facility] [address] [place] [address] Scott Guido DO 22 [place] [address] 03/12/2026 11:45 AM EDT Appointment [facility] CT Imaging, [place] [address] [place] [address] Sarah Colón MD 60 [place] [address] [email or web address] 03/12/2026 12:00 PM EDT Office Visit [facility] Department of Neurosurgery [address] [place] [address] Sarah Colón MD [address] [place] [address] [email or web address] documented as of this encounter Visit Diagnoses Not on filedocumented in this encounter Additional Health Concerns Assessment Noted Time PHQ-2 Depression Total Score: 2 12/11/19 24 4:39 PM EST documented as of this encounter Care Teams Manager Books Relationship Specialty Start Date End Date Julienne Barber DO [address] [address] PCP - General Family Medicine 03/24/25 Barb Massey CNP [address] [facility] 7 [place] [address] PCP - PAINT ROLLER COVERS SUPERVISOR/PA Co-Seo Consultant Nurse Practitioner 03/24/25 documented as of this encounter Additional Source Comments The information contained in this document represents components of the legal health record. It is not the complete legal health record.[facility]
--- OUTSIDE RECORDS SUMMARY | 2025-10-28 06:54 | XMS_ITS | Encounter Summary ---
Author Organization [facility] Address [address] [facility] [address] [place] [address] Phone Care Team Providers Care Supervisor Slashing Department Name Role Phone Barb Massey CNP Primary Care Provider + Julienne Barber DO Primary Care Provider Barb Massey ACCOUNTING INTERN Unavailable [phone] Encounter Details Date Type Department Care Team (Late st Contact Info) Description 03/05/2024 Procedure Pass [address] [place] [address] Social History Tobacco Use Types Packs/Day Years [...] st Contact Info) Description 09/12/2025 Procedure Pass [facility] CT Imaging, [place] [address] [place] [address] 12/09/2025 1:00 PM EST Office Visit [facility] [address] [place] [address] [place] [address] Scott Guido DO [address] [place] [address] 03/12/2026 11:45 AM EDT Appointment [facility] CT Imaging, [place] [address] [place] [address] Sarah Colón MD 60 [place] [address] [email or web address] 03/12/2026 12:00 PM EDT Office Visit [facility] Department of Neurosurgery [address] [place] [address] Sarah Colón MD [address] [place] [address] [email or web address] documented as of this encounter Visit Diagnoses Not on filedocumented in this encounter Additional Health Concerns Infection Onset Date Last Indicated Resolved Time CoV-Risk 03/20/2025 03/20/2025 03/31/2025 1:21 AM EDT Assessment Noted Time PHQ-2 Depression Total Score: 2 12/11/19 4:39 PM EST documented as of this encounter Care Teams Supervisor Slashing Department Relationship Specialty Start Date End Date Barb Massey CNP [address] [place] [address] PCP - General Family Medicine 03/10/23 03/23/25 Julienne Barber DO [address] [place] [address] PCP - General Family Medicine 03/24/25 Barb Massey CNP [address] [place] [address] PCP - STENCIL PRINTER/PA Co-Machine Records Units Supervisor Nurse Practitioner 03/24/25 documented as of this encounter Additional Source Comments The information contained in this document represents components of the legal health record. It is not the complete legal health record.[facility]
--- OUTSIDE RECORDS SUMMARY | 2025-10-28 06:54 | XMS_ITS | Encounter Summary ---
Author Organization [facility] Address [address] [facility] [address] [place] [address] Phone Care Team Providers Care Protective Signal Repairer Name Role Phone Julienne Barber DO Primary Care Provider [phone] Barb Massey HIGH RISK OB Unavailable [phone] Encounter Details Date Type Department Care Team (Late st Contact Info) Description 08/21/2025 Procedure Pass [facility], Ct Scan - [address] [address] Social History Tobacco Use Types Packs/Day Years [...] st Contact Info) Description 09/12/2025 Procedure Pass [facility] CT Imaging, [place] [address] [place] [address] 12/09/2025 1:00 PM EST Office Visit [facility] [address] [place] [address] Scott Guido DO 22 [place] [address] 03/12/2026 11:45 AM EDT Appointment [facility] CT Imaging, [place] [address] [place] [address] Sarah Colón MD 60 [place] [address] [email or web address] 03/12/2026 12:00 PM EDT Office Visit [facility] Department of Neurosurgery 60 [place] [address] Sarah Colón MD 60 [place] [address] [email or web address] documented as of this encounter Visit Diagnoses Not on filedocumented in this encounter Additional Health Concerns Assessment Noted Time PHQ-2 Depression Total Score: 2 08/21/20 11:16 AM EDT documented as of this encounter Care Teams Protective Signal Repairer Relationship Specialty Start Date End Date Julienne Barber DO [address] [address] PCP - General Family Medicine 03/24/25 Barb Massey CNP [address] [address] PCP - RETURNS PROCESSOR/PA Co-Pile Header Nurse Practitioner 03/24/25 documented as of this encounter Additional Source Comments The information contained in this document represents components of the legal health record. It is not the complete legal health record.[facility]
--- OUTSIDE RECORDS SUMMARY | 2025-10-28 06:54 | XMS_ITS | Encounter Summary ---
Author Organization [facility] Address [address] [place] [address] Phone Care Team Providers Care Quenching Car Operator Name Role Phone Barb Massey CNP Primary Care Provider + Julienne Barber DO Primary Care Provider [phone] Barb Massey DIGITAL ACCOUNT DIRECTOR Unavailable [phone] Encounter Details Date Type Department Care Team (Late st Contact Info) Description 03/05/2024 Procedure Pass [facility], Ct Scan - [address] [address] Social History Tobacco Use Types Packs/Day Years [...] st Contact Info) Description 09/12/2025 Procedure Pass [facility] CT Imaging, [address] [place] [address] 12/09/2025 1:00 PM EST Office Visit [facility] [address] [place] [address] [place] [address] Scott Guido DO [address] [place] [address] 03/12/2026 11:45 AM EDT Appointment [facility] CT Imaging, [address] [place] [address] Sarah Colón MD [address] [place] [address] [email or web address] 03/12/2026 12:00 PM EDT Office Visit [facility] Department of Neurosurgery [address] [place] [address] Sarah Colón MD [address] [place] [address] [email or web address] documented as of this encounter Visit Diagnoses Not on filedocumented in this encounter Additional Health Concerns Infection Onset Date Last Indicated Resolved Time CoV-Risk 03/20/2025 03/20/2025 03/31/2025 1:21 AM EDT Assessment Noted Time PHQ-2 Depression Total Score: 2 12/11/19 4:39 PM EST documented as of this encounter Care Teams Quenching Car Operator Relationship Specialty Start Date End Date Barb Massey CNP [address] [place] [phone] PCP - General Family Medicine 03/10/23 03/23/25 Julienne Barber DO [address] [place] [address] PCP - General Family Medicine 03/24/25 Barb Massey CNP [address] [place] [address] PCP - GLASS CHECKER/PA Co-Map Mounter Nurse Practitioner 03/24/25 documented as of this encounter Additional Source Comments The information contained in this document represents components of the legal health record. It is not the complete legal health record.[facility]
--- OUTSIDE RECORDS SUMMARY | 2025-10-28 06:54 | XMS_ITS | Encounter Summary ---
Author Organization [facility] Address [address] [place] [address] Phone Care Team Providers Care National Investigative Producer Name Role Phone Barb Massey CNP Primary Care Provider + Julienne Barber DO Primary Care Provider Barb Massey CLIENT RELATIONSHIP MANAGER Unavailable [phone] Encounter Details Date Type Department Care Team (Late st Contact Info) Description 02/14/2025 Procedure Pass [facility] CT Imaging, [place] [address] [place] [address] Social History Tobacco Use Types Packs/Day Years [...] st Contact Info) Description 09/12/2025 Procedure Pass [facility] CT Imaging, [place] [address] [place] [address] 12/09/2025 1:00 PM EST Office Visit [facility] [address] [place] [address] Scott Guido DO [address] [place] [address] 03/12/2026 11:45 AM EDT Appointment [facility] CT Imaging, [address] [place] [address] Sarah Colón MD [address] [place] [address] [email or web address] 03/12/2026 12:00 PM EDT Office Visit [facility] Department of Neurosurgery [address] [place] [address] Sarah Colón MD [address] [place] [address] [email or web address] documented as of this encounter Visit Diagnoses Not on filedocumented in this encounter Additional Health Concerns Infection Onset Date Last Indicated Resolved Time CoV-Risk 03/20/2025 03/20/2025 03/31/2025 1:21 AM EDT Assessment Noted Time PHQ-2 Depression Total Score: 2 12/11/19 4:39 PM EST documented as of this encounter Care Teams National Investigative Producer Relationship Specialty Start Date End Date Barb Massey CNP [address] [place] [address] PCP - General Family Medicine 03/10/23 03/23/25 Julienne Barber DO [address] [place] [phone] PCP - General Family Medicine 03/24/25 Barb Massey CNP [address] [place] [address] [address] [place] [address] [email or web address] PCP - LEAD PRESSMAN ROTO GRAVURE PRINTING/PA Co-Bank Vault Custodian Nurse Practitioner 03/24/25 documented as of this encounter Additional Source Comments The information contained in this document represents components of the legal health record. It is not the complete legal health record.[facility]
--- OUTSIDE RECORDS SUMMARY | 2025-10-28 06:54 | XMS_ITS | Encounter Summary ---
Author Organization [facility] Address [address] [place] [address] Phone Care Team Providers Care Bookmobile Librarian Name Role Phone Barb Massey CNP Primary Care Provider + Julienne Barber DO Primary Care Provider [phone] Barb Massey INSPECTOR INTEGRATED CIRCUITS Unavailable Encounter Details Date Type Department Care Team (Late st Contact Info) Description 03/05/2025 Procedure Pass [facility] Periop [address] [place] [address] Social History Tobacco Use Types Packs/Day Years [...] 4:12 PM EDT Domenica Newman RN * [place] Suicide Severity Rating Scale (Screener/Recent Self-Report) Question [...] st Contact Info) Description 09/12/2025 Procedure Pass [facility] CT Imaging, [address] [place] [address] 12/09/2025 1:00 PM EST Office Visit [facility] [address] [place] [address] Scott Guido DO [address] [place] [address] [email or web address] 03/12/2026 11:45 AM EDT Appointment [facility] CT Imaging, [address] [place] [address] Sarah Colón MD [address] [place] [address] [email or web address] 03/12/2026 12:00 PM EDT Office Visit [facility] Department of Neurosurgery [address] [place] [address] Sarah Colón MD [address] [place] [address] [email or web address] documented as of this encounter Visit Diagnoses Not on filedocumented in this encounter Additional Health Concerns Infection Onset Date Last Indicated Resolved Time CoV-Risk 03/20/2025 03/20/2025 03/31/2025 1:21 AM EDT Assessment Noted Time PHQ-2 Depression Total Score: 2 12/11/19 4:39 PM EST documented as of this encounter Care Teams Bookmobile Librarian Relationship Specialty Start Date End Date Barb Massey, INSPECTOR INTEGRATED CIRCUITS [address] [place] [address], [address] [place] [address] [email or web address] PCP - General Family Medicine 03/10/23 03/23/25 Julienne Barber DO [address] [place] [address], [facility] [address] [place] [address] [email or web address] PCP - General Family Medicine 03/24/25 Barb Massey CNP [address] [place] [address], [address] [place] [address] [email or web address] PCP - DEBT RECOVERY OFFICER/PA Co-Notch Machine Operator Nurse Practitioner 03/24/25 documented as of this encounter Additional Source Comments The information contained in this document represents components of the legal health record. It is not the complete legal health record.[facility]
--- OUTSIDE RECORDS SUMMARY | 2025-10-28 06:54 | XMS_ITS | Encounter Summary ---
Author Organization [facility] Address [address] [place] [address] Phone Care Team Providers Care Color Checker Roving Or Yarn Name Role Phone Barb Massey CNP Primary Care Provider + Julienne Barber DO Primary Care Provider Barb Massey HELPDESK ANALYST Unavailable Encounter Details Date Type Department Care Team (Late st Contact Info) Description 12/02/2024 Procedure Pass [address] [place] [address] Social History Tobacco Use Types Packs/Day Years [...] st Contact Info) Description 09/12/2025 Procedure Pass [facility] CT Imaging, [place] [address] [place] [address] 12/09/2025 1:00 PM EST Office Visit [facility] [address] [place] [address] Scott Guido DO 22 [place] [address] 03/12/2026 11:45 AM EDT Appointment [facility] CT Imaging, [address] [place] [address] Sarah Colón MD [address] [place] [address] [email or web address] 03/12/2026 12:00 PM EDT Office Visit [facility] Department of Neurosurgery [address] [place] [address] Sarah Colón MD [address] [place] [address] [email or web address] documented as of this encounter Visit Diagnoses Not on filedocumented in this encounter Additional Health Concerns Infection Onset Date Last Indicated Resolved Time CoV-Risk 03/20/2025 03/20/2025 03/31/2025 1:21 AM EDT Assessment Noted Time PHQ-2 Depression Total Score: 2 12/11/19 4:39 PM EST documented as of this encounter Care Teams Color Checker Roving Or Yarn Relationship Specialty Start Date End Date Barb Massey CNP [address] [place] [address] PCP - General Family Medicine 03/10/23 03/23/25 Julienne Barber DO [address] [place] [address] PCP - General Family Medicine 03/24/25 Barb Massey CNP [address] [place] [address], [place] [address] [email or web address] PCP - INSPECTING AND TESTING LEAD HAND/PA Co-Raw Cheese Worker Nurse Practitioner 03/24/25 documented as of this encounter Additional Source Comments The information contained in this document represents components of the legal health record. It is not the complete legal health record.[facility]
--- OUTSIDE RECORDS SUMMARY | 2025-10-28 06:54 | XMS_ITS | Continuity of Care Document ---
Author Organization [facility] Address [address] [place], [place] Phone [phone] Social History Type Date Description Comments Sex Female Sex Unknown Allergies and adverse reactions Active Allergies Criticality Reaction Severity Comments Date Shellfish-Derived Products Unable to assess criticality 03/08/2024 Dairy Unable to assess criticality 03/08/2024
== END 2025-10-28 06:52 | disposition home or self-care (01) ==
LOC: CF 06:51
PROVIDERS: Visit Provider Anesthesiology
DX: M47.816 Spondylosis without myelopathy or radiculopathy, lumbar region (principal)
CPT/HCPCS: J2003

== ENCOUNTER 2025-10-28 09:13 | Outpatient (AMB) | payer MEDICARE, SELFPAY ==
[2025-10-28 09:16] VITALS: BP 162/91; PULSE 76; RESP 16; O2SAT 95; BMI 35.5
--- NOTE | 2025-10-28 09:16 | A.OFFVIS_ITS ---
Vital Signs 10/28/25 09:16 10/28/25 10:32 Height 5 ft 1 in Weight 188 lb BMI 35.5 BP 162/91 H 147/81 H Blood Pressure Location Lt brachial Lt brachial Position Sitting Sitting Respiration 16 16 Pulse 76 70 Pulse Source Pulse Oximeter Pulse Oximeter Pulse Oximetry (%) 95 94 Oxygen Delivery Method Room Air Room Air Intake Visit Reasons: Left Sprint PNS L4 Allergies lobster Allergy (Severe, Verified 10/22/25 09:56) Anaphylaxis hydromorphone Allergy (Verified 10/22/25 09:56) Itching PFSH Medical History Scoliosis Lumbar stenosis Osteoarthritis Post laminectomy syndrome Chronic pain syndrome Sleep apnea Surgical History History of knee replacement History of hysterectomy S/P placement of nerve stimulator History of back surgery Social History Are you a primary companion caregiver to a significant other at home: No Do you presently have visiting nurse or other home services: No Patient Tobacco Use Status: Former Tobacco user Tobacco use type: Cigarette Years Smoked: quit 35 years ago. started at age 18, 1PPD Second Hand Smoke Exposure: No Physical Exam Vital Signs: Last Vital Signs Pulse 76 10/28/25 09:16 Resp 16 10/28/25 09:16 BP 162/91 H 10/28/25 09:16 Pulse Ox 95 10/28/25 09:16 Oxygen Delivery Method Room Air 10/28/25 09:16 BMI result Body Mass Index 35.5 Assessment & Plan Assessment & Plan (1) Spondylosis of lumbar joint: Code(s): M47.816 - Spondylosis without myelopathy or radiculopathy, lumbar region Category: Medical Plan Percutaneous implantation of peripheral nerve stimulation Sprint system left L5 the risks, benefits and alternatives were discussed with the patient and info rmed consent was obtained, patient was placed in the prone position and padded to foster comfort. Time out was performed delineating correct site and side of the procedure , name and of the patient, patient participated in time out procedure. The lower back of the patient was prepped with ChloraPrep and draped with sterile self adhesive utility towels. C-arm was brought over the operating field and the picture of the L5 lamina was demonstrated on the left than the screen. The positioned was changed for L5 lamina A percutaneous sleeve and stimulating probe lead introduction system were assembled, inserted and advanced through the skin wheal to the point of interest under C-arm viewL left L5 lamina., the introducer needle was delivered to a location in proximity to the nerve. Multiple stimulation parameters were used to deliver stimulation to the nerve in concert with stimulating at multiple positions around the nerve. unfortunately the patient again did not feel any stimulation. Possibility exists that the patient's multifidus to villeda the confluence of the superior articular process of L5 on the left with the transverse process of L5 on the left Patient reported stimulation appropriate at this level corresponding to the level of the pain. The nerve target acquisition was confirmed noting generation of in the corresponding to the nerve being stimulated. Various electrical parameter combinations were tested, and the lead location was adjusted (physically relocated) until the patient indicated overlapping the distribution of the patient?s typical region of pain. The stimulating probe was removed from the introducer and a percutaneous lead was guided through the needle and delivered to a location in similar proximity to the nerve. Final location was verified with electrical stimulation. The introducer needle was removed, and the exposed end of the percutaneous lead was attached to an external stimulator unit. The nerve target acquisition was confirmed noting generation of in the corresponding to the nerve being stimulated. Various electrical parameter combinations were tested, and the lead location was adjusted (physically relocated) until the patient indicated overlapping the distribution of the patient?s typical region of pain. The stimulating probe was removed from the introducer and a percutaneous lead was guided through the needle and delivered to a location in similar proximity to the nerve. Final location was verified with electrical stimulation. The introducer needle was removed, and the exposed end of the percutaneous lead was attached to an external stimulator unit. At the end of the case various electrical parameter combinations were again tested until the patient indicated paresthesia or muscle tension overlapping the distribution of the patient?s typical region of pain. After confirming that lead impedance was in the normal range, the external unit was detached, the needle was removed, and the lead was anchored at the skin. The leads were threaded into the connector block and electrical continuity and desired patient response was confirmed. The connector block was attached to the external stimulator unit. The site was covered with a sterile occlusive dressing and a image was taken to document final placement. Upon completion of the procedure the patient was taken outside the OR where she recovered uneventfully she went home without immediate complications. Orders: Orders FL guidance in treatment room Today M47.816 - Spondylosis without myelopathy or radiculopathy, lumbar region Coding Level of Care Code Procedure Only Diagnoses Spondylosis of lumbar joint M47.816 Implantable Device Implantable Device Implantable Devices [place] Utility Worker Implant Date Expiration Date Analgesic PENS system 1 [employer] 10/14/25 Analgesic PENS system 1 [employer] 10/28/25 Analgesic spinal cord electrical stimulation system 1 [employer] 11/01/24 04/10/26 Analgesic spinal cord electrical stimulation system 1 [employer] NEUROMODULATION [employer] 11/01/24 09/02/26 Analgesic spinal cord electrical stimulation system 1 [employer] 11/01/24 10/02/26 LEAD 50CM LINEAR W/ STEERING 1 11/01/24 03/25/26 LEAD BLUE PERC 50 1 01/17/25 08/27/27
[2025-10-28 10:32] VITALS: BP 147/81; PULSE 70; RESP 16; O2SAT 94
== END 2025-10-28 10:47 | disposition home or self-care (01) ==
LOC: HO.PMCPRC 09:13
PROVIDERS: PCP Nurse Practitioner Primary Care; Visit Provider Anesthesiology
DX: M47.816 Spondylosis without myelopathy or radiculopathy, lumbar region (principal)
CPT/HCPCS: 64555; 64590

== ENCOUNTER 2025-11-05 09:35 | Outpatient (AMB) | payer MEDICARE, SELFPAY ==
[2025-11-05 09:46] VITALS: BP 148/97; PULSE 75; RESP 16; O2SAT 95; BMI 35.5
--- NOTE | 2025-11-05 09:46 | A.OFFVIS_ITS ---
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 She certainly feels improvement. We discussed her diagnosis today and we discussed the past for the improvement. She reports better mobility and better activities of daily living, however she still reports some axial back pain in the projection of the sacral bone. I am willing to wait and see how things will enroll themselves for now I recommended her to continue stimulation. I will see her on the removal of the electrodes in November. I diagnosed her with intractable back pain. With this diagnosis I will schedule her for 1st right and after that left sprint PNS trial. If patient will reports significant pain improvement on day 21 after the procedure we will continue the trial for 8 weeks. If this trial will not result in pain improvement we will come back with the idea of bupivacaine pain pump trial. She reported 100% pain improvement on hydromorphone for 24 hours after the procedure however she reported significant generalized itching. She had to administer herself Narcan to stop the itching. [facility] Medical History Scoliosis Lumbar stenosis Osteoarthritis Post laminectomy syndrome Chronic pain syndrome Sleep apnea Surgical History History of knee replacement History of hysterectomy S/P placement of nerve stimulator History of back surgery Social History Are you a primary palliative care nurse to a significant other at home: No Do you presently have visiting nurse or other home services: No Patient Tobacco Use Status: Former Tobacco user Tobacco use type: Cigarette Years Smoked: quit 35 years ago. started at age 18, 1PPD Second Hand Smoke Exposure: No Review of Systems Const All systems reviewed & are unremarkable except as noted in HPI and below Physical Exam Exam Exam: General: awake, alert, oriented. Answers questions appropriately. Fully engaged in examination. Skin: warm, dry, intact HEENT: Normocephalic. Hearing intact. Cardiac: External chest normal in appearance. Respiratory: No cough, audible wheezing or stridor. Abdomen: without gross distension. MS: No obvious swelling or deformities. Neurological: Oriented to person, place, time and situation. Thought process intact. Ambulates with the use of cane, bent at the waist in a slight forward flexion Psychiatric: Appropriate mood and affect. Good judgment and insight. Assessment & Plan Assessment & Plan (1) Spondylosis of lumbar joint: Code(s): M47.816 - Spondylosis without myelopathy or radiculopathy, lumbar region Category: Medical (2) Post laminectomy syndrome: Code(s): M96.1 - Postlaminectomy syndrome, not elsewhere classified Category: Medical (3) Chronic pain syndrome: Code(s): G89.4 - Chronic pain syndrome Category: Medical (4) Lumbar stenosis with neurogenic claudication: Code(s): M48.062 - Spinal stenosis, lumbar region with neurogenic claudication Category: Medical (5) Intractable low back pain: Code(s): M54.59 - Other low back pain Category: Medical Plan H/o Postlaminectomy syndrome. Attempt to treat the pain with SCS failed because of very difficult lead placement ending in SCF leak. ITDD trial of hydromorphone - she reported 100% pain relieve but reported also severe itching requiring naloxone administration. A trial of fentanyl resulted in no pain improvement. Trial of Sprint PNS bilateral L5- admits certain improvement. I will continue observation. Electrodes removal in November. Coding Level of Care Code Est Pt Level 3 (95936) Diagnoses Spondylosis of lumbar joint M47.816 Post laminectomy syndrome M96.1 Chronic pain syndrome G89.4 Lumbar stenosis with neurogenic claudication M48.062 Intractable low back pain M54.59
== END 2025-11-05 09:55 | disposition home or self-care (01) ==
LOC: HO.PMC 09:36
PROVIDERS: PCP Nurse Practitioner Primary Care; Visit Provider Anesthesiology
DX: M47.816 Spondylosis without myelopathy or radiculopathy, lumbar region (principal); M96.1 Postlaminectomy syndrome, not elsewhere classified; G89.4 Chronic pain syndrome; M48.062 Spinal stenosis, lumbar region with neurogenic claudication; M54.59 Other low back pain
CPT/HCPCS: 99024

== ENCOUNTER → 2025-11-05 09:35 | Outpatient (BNVA) | payer MEDICARE, SELFPAY | PROVIDERS: PCP Nurse Practitioner Primary Care; Visit Provider Anesthesiology | DX: G89.4 Chronic pain syndrome (principal); M47.816 Spondylosis without myelopathy or radiculopathy, lumbar region; M96.1 Postlaminectomy syndrome, not elsewhere classified; M48.062 Spinal stenosis, lumbar region with neurogenic claudication; M54.59 Other low back pain | CPT/HCPCS: 99212 ==